=== PATIENT | female | born 1955 | race Caucasian/White ===

== ENCOUNTER → 2016-11-16 | Outpatient (CLI) | payer OTHER, MEDICAID ==
[~2016-11-16] MED LIST: ADVAIR 250/501 EA INH; ALBUTEROL SUL0.25 ML INH; ALBUTEROL0.09 MG/A2 IH; AMOXICILLIN500 M3 PO; ASPIR-TRIN325 MG; ASPIRIN325 M2 PO; DUONEB 3 MG/3 ML3 M1 INH; FERROUS SULFAT325 MG PO; GLUCOPHAGE XR500 MG PO; GLUCOPHAGE1000 MG PO; GUAIFENESIN600 MG PO; HYDROCOD BIT &1 TAB PO; LAMICTAL ODT PA1 OD1 MM; LAMICTAL200 MG PO; LANTUS100 U/ML SC; LASIX40 MG PO; LIPITOR80 MG PO; LISINOPRIL10 MG PO; LISINOPRIL5 MG PO; LOPRESSOR PO; LOPRESSOR25 MG PO; NEXIUM40 MG PO; NORCO 5-325 TA1 EACH PO; NOVOLIN R100 U/ML; PLAVIX75 MG PO; PRILOSEC40 MG PO; PROAIR HFA8.5 GM IH; PROAIR HFA8.5 GM PO; ROBITUSSIN AC 10 MG/ PO; ROZEREM8 MG PO; TRAMADOL HCL50 MG PO; TRAMADOL50 MG PO; TRAZADONE HYDR100 MG PO; TRICOR145 MG PO; VICODIN 500 MG-1 TAB PO; VICTOZA6 MG/ML; VICTOZA6 MG/ML SC; VISTARIL25 M1 PO; VISTARIL25 MG PO; WARFARIN SOD5 MG PO; XARE20MG PO; ZITHROMAX250 MG PO; ZOLOFT100 MG PO
[2016-11-16 13:22] LABS: IRON 44 ug/dL (50-170); IRON SATURATION 14 %; UIBC 267 ug/dL (110-365)
== END | disposition home or self-care (01) ==
LOC: LAB 12:13
PROVIDERS: Internal Medicine
DX: D50.9 Iron deficiency anemia, unspecified (principal)

== ENCOUNTER → 2016-11-17 | Outpatient (CLI) | payer OTHER, MEDICAID | END | disposition home or self-care (01) | LOC: LAB 11:35 | DX: D50.9 Iron deficiency anemia, unspecified (principal) ==

== ENCOUNTER → 2017-11-13 | Outpatient (CLI) | payer OTHER, MEDICAID | END | disposition home or self-care (01) | LOC: RAD 15:48 | DX: M79.672 Pain in left foot (principal); D50.8 Other iron deficiency anemias ==

== ENCOUNTER 2017-12-12 21:23 | Inpatient (IN) | payer OTHER, MEDICAID, MEDICARE ==
[~2017-12-12] VITALS: Ht 157.4 cm; Wt 96.6 kg
--- NOTE | ~2017-12-12 | PR ---
[place], [place] PROGRESS NOTE NAME: BALDO BECK [facility] #: [id number] UNIT #: [id number] ROOM: [facility] DOCTOR: MERLIN WAY MD,TRUDY BIRTHDATE: [birth year] DOS: 12/14/2017 PULMONARY PROGRESS NOTE SUBJECTIVE: The patient has been noted comfortable at this time without any distress. She has been noted with symptoms of cough, which has been noted partially decreased. There were no symptoms of chest pain or hemoptysis. She has used the BiPAP for significant amount of time in the last 24 hours; this morning, using oxygen supplementation nasal cannula, resting comfortably on the bed. Denies symptoms of headache, nausea, vomiting or diarrhea. Denies symptoms of abdominal pain. Denies symptoms of edema or pain of the lower extremities. Remaining systems were reviewed, they were noted all negative. OBJECTIVE: VITAL SIGNS: Normal temperature, respiratory rate 20, heart rate 98, blood pressure 131/74 to 136/70. Her pulse ox saturation on 2 liters nasal cannula was 94% saturation. HEENT: Examination shows head was atraumatic, eyes nonicterus. NECK: Supple. CARDIOVASCULAR: S1, S2 audible. LUNGS: The patient was noted moderate decreased breath sounds with expiratory wheezing, partially decreased from yesterday. ABDOMEN: Soft and obese. EXTREMITIES: The patient was noted without any acute edema. MUSCULOSKELETAL: Without any acute deformities. CENTRAL NERVOUS SYSTEM: The patient with no gross focal neurologic deficit. LABORATORY DATA: Gram stain of yesterday of sputum many white blood cells, moderate epithelial cells, moderate gram-positive cocci in pairs and chains, and few gram-positive cocci in clusters. CBC this morning: WBC count normal, hemoglobin 9.5, hematocrit 32.7, platelet count 233,000. BMP: Glucose 202, BUN 21, creatinine 1.04. Arterial blood gas that was done yesterday, pH was noted as 7.35, pCO2 of 36, pO2 107, 60% oxygen with BiPAP at that time. Currently, the patient has been getting oxygen supplementation nasal cannula. IMPRESSION: 1. The patient has been noted with acute pneumonia. Gram-negative brice was noted at this time, pending identification and sensitivities. 2. The patient with atrial fibrillation with rapid ventricular response. 3. The patient with acute congestive heart failure, systolic and diastolic dysfunction. 4. The patient with acute exacerbation of chronic obstructive pulmonary disease. 5. Chronic obesity. 6. Atrial fibrillation with rapid ventricular response was also noted. 7. Possibility of non-ST segment elevation myocardial infarction. [place], [place] PROGRESS NOTE NAME: BALDO BECK [facility] #: [id number] UNIT #: [id number] ROOM: [facility] DOCTOR: MERLIN WAY MD,TRUDY BIRTHDATE: [birth year] 8. Uncontrolled diabetes mellitus. 9. Suspicion of obstructive sleep apnea disorder. PLAN OF MANAGEMENT: Continuation of oxygen supplementation and bronchodilators. The patient's Cardizem has been switched to oral formulation, intravenous Cardizem is discontinued. Heart rate is noted currently well controlled. Continue Solu-Medrol 40 mg b.i.d. Monitor results of the sputum culture for the patient at this time and then consider changing antibiotics of the patient accordingly. Usual care, other supportive therapy, plan of management, other treatment and care plan. The patient was encouraged to continue the BiPAP intermittent during the day and continuous at nighttime. Arterial blood gas new is ordered to reassess improvement in the ventilatory status without BiPAP. Usual care. Past, family, social history for the patient otherwise was noted yesterday, remains unchanged. Maximize the management of diabetes mellitus. TRUDY BOYER MD CM:MARCELLA [address] MD 12/14/1716 interface
--- NOTE | ~2017-12-12 | EKG ---
[place], [place] ELECTROCARDIOGRAM REPORT NAME: BALDO BECK UNIT #: [id number] ROOM: [facility] DOCTOR: AURA DRAFT REPORT BIRTHDATE: [birth year] [facility] [place] Test Date: 2017-12-14 Test Time: 09:44:57 Pat Name: BALDO BECK Department: Room: [place] [address] Gender: F Carriage Dogger: 17 : 1955 Requested By: FANI ALVA Order Number: [id number] Reading MD: Alex Peterson MD Measurements Intervals [place] Rate: 98 P: RI: QRS: 35 QRSD: 113 T: 163 QT: 405 QTc: 518 Interpretive Statements Atrial fibrillation Borderline intraventricular conduction delay Low voltage, precordial leads Abnrm T, consider ischemia, anterolateral lds Prolonged QT interval Compared to ECG 12/12/2017 22:53:57 Possible ischemia now present Prolonged QT interval now present Electronically Signed On 12-14-2017 19:55:38 PDT by Alex Peterson MD CM:EKGRPT:ELECTROCARDIOGRAM REPORT 3 54 FANI ALVA EPIPHANY DRAFT REPORT FANI ALVA
--- NOTE | ~2017-12-12 | PR ---
[place], [place] PROGRESS NOTE NAME: BALDO BECK UNIT #: [id number] ROOM: [facility] DOCTOR: PASCALE RAMIREZ,CADEN BIRTHDATE: [birth year] DOS: 12/15/2017 REASON FOR VISIT: Atrial fibrillation and CHF. HISTORY OF PRESENT ILLNESS: The patient is feeling better. She is sitting at bedside. Denies any chest pain or palpitations. No orthopnea. No dizziness. No PND. REVIEW OF SYSTEMS: Review of the 10 systems negative except as mentioned above. PHYSICAL EXAMINATION: VITAL SIGNS: Blood pressure 156/73, pulse 104, respiratory rate 20, weight 100 kilos. BMI 40. GENERAL: Alert, comfortable, in no acute distress. HEAD AND NECK: Supple, nondistended. No carotid bruit. CHEST: Symmetrical, nontender. LUNGS: Few scattered rhonchi, but good air entry bilaterally. HEART: Irregularly irregular, grade 1/6 systolic murmur. No palpable thrills. ABDOMEN: Benign, nontender. Bowel sounds normal. EXTREMITIES: Showed no edema. Distal pulses are palpable. SKIN: Warm and dry. No cyanosis, no clubbing. RECTAL: Deferred. GENITOURINARY: Deferred. NEUROLOGIC: The patient is alert, oriented with no focal neurologic deficit. MEDICATIONS AND ALLERGIES: Reviewed. LABORATORY DATA: Reviewed. IMPRESSION: 1. Atrial fibrillation with rapid ventricular rate. 2. Acute on chronic diastolic heart failure. 3. Coronary artery disease. 4. Type 2 non-ST elevation myocardial infarction. 5. Essential hypertension. 6. History of pulmonary emboli and deep venous thrombosis. 7. Pulmonary hypertension. 8. Morbid obesity. RECOMMENDATIONS: 1. Start metoprolol 25 mg twice a day as well as Cardizem 90 mg p.o. q. 8 hours and monitor her heart rate and blood pressure. 2. Wean and discontinue IV Cardizem. 3. Continue her Xarelto for anticoagulation. 4. Discussed with her family member who is at bedside. 5. She would require a Lexiscan stress test either prior to discharge or as an outpatient. [place], [place] PROGRESS NOTE NAME: BALDO BECK UNIT #: [id number] ROOM: [facility] DOCTOR: CADEN ASHRAF MD BIRTHDATE: [birth year] CADEN ASHRAF MD CM:PNTRANS [id number] CADEN ASHRAF MD 12/15/17 2156 interface
--- NOTE | ~2017-12-12 | PR ---
[place], [place] PROGRESS NOTE NAME: BALDO BECK UNIT #: [id number] ROOM: 504 DOCTOR: TRUDY BINGHAM MD BIRTHDATE: [birth year] DOS: 12/16/2017 SUBJECTIVE: The patient was noted comfortable at this time without any acute distress, sitting on the chair this morning. Used the BiPAP last night. Heart rate was noted well controlled for the patient. With current medical management for atrial fibrillation. No symptoms of coughing, sputum expectoration or any chest pain. OBJECTIVE: VITAL SIGNS: For the patient which has been recorded showed the temperature noted as normal. The respiratory rate recorded as 22, heart rate 75 and blood pressure 127/80. HEENT: Noted without any acute abnormalities. Chronic obesity findings were noted. CARDIOVASCULAR: S1, S2 is audible. LUNGS: The patient was noted without any wheeze or crackle at this time. Lungs were noted clear. ABDOMEN: Soft, nontender and obese. EXTREMITIES: Without any acute edema. LABORATORY DATA: The CMP patient that was done this morning, BUN 30, creatinine was normal and glucose 154. Albumin of 2.9. The chest x-ray patient 2-view, which was done this morning was reviewed improving the aeration of the lung with the patient very small pleural fluid in the left. IMPRESSION: 1. Acute pneumonia with gram-negative infection. The patient has Klebsiella responding to treatment very well. Small pleural fluid secondary to acute infection, resolving without any acute intervention. 2. Acute respiratory failure, improved significantly. 3. Atrial fibrillation noted with current controlled range. PLAN OF TREATMENT: No changes in the plan for this patient at this time. Continue current therapy the antibiotics as ordered. Continuation of the bronchodilators and other therapy, plan of management. Titrate oxygen supplementation. Pulse oxygen saturation 90% or greater. The CPAP rather BiPAP at night time. Outpatient workup patient's obstructive sleep apnea disorder as well. [place], [place] PROGRESS NOTE NAME: BALDO BECK UNIT #: [id number] ROOM: 504 DOCTOR: TRUDY BINGHAM MD BIRTHDATE: [birth year] TRUDY BOYER MD CM:PNTRANS [address] MD 12/24/17 0931 interface
--- NOTE | ~2017-12-12 | EKG ---
[place], [place] ELECTROCARDIOGRAM REPORT NAME: BALDO BECK UNIT #: [id number] ROOM: [facility] DOCTOR: AURA DRAFT REPORT BIRTHDATE: [birth year] [facility] Test Date: 2017-12-12 Test Time: 21:29:23 Pat Name: BALDO BECK Department: Room: [facility] Gender: F Medical Reception: SS RESP : 1955 Requested By: ANDRY CISNEROS Order Number: [id number] Reading MD: Alex Peterson MD Measurements Intervals [place] Rate: 161 P: ND: QRS: 58 QRSD: 99 T: 137 QT: 305 QTc: 499 Interpretive Statements Atrial fibrillation with rapid V-rate Probable anterior infarct, old Repolarization abnormality, prob rate related Electronically Signed On 12-13-2017 20:20:43 PDT by Alex Peterson MD CM:EKGRPT:ELECTROCARDIOGRAM REPORT 28 19 ANDRY CISNEROS MD EPIPHANY DRAFT REPORT ANDRY CISNEROS MD
--- NOTE | ~2017-12-12 | EKG ---
[place], [place] ELECTROCARDIOGRAM REPORT NAME: BALDO BECK UNIT #: [id number] ROOM: [facility] DOCTOR: EPIPHANY DRAFT REPORT BIRTHDATE: [birth year] [facility] Test Date: 2017-12-12 Test Time: 21:45:58 Pat Name: BALDO BECK Department: Room: [facility] Gender: F Janitorial Manager: Joann Trevizo : 1955 Requested By: ANDRY CISNEROS Order Number: [id number] Reading MD: Alex Peterson MD Measurements Intervals [place] Rate: 89 P: WI: QRS: 34 QRSD: 111 T: 118 QT: 383 QTc: 467 Interpretive Statements Atrial fibrillation Low voltage, precordial leads Consider anterior infarct Nonspecific T abnormalities, lateral leads Compared to previous tracing this date, rate has slowed by 72 beats/min Electronically Signed On 12-13-2017 20:22:06 PDT by Alex Peterson MD CM:EKGRPT:ELECTROCARDIOGRAM REPORT 44 21 ANDRY CISNEROS MD EPIPHANY DRAFT REPORT ANDRY CISNEROS MD
--- NOTE | ~2017-12-12 | CON ---
[place], [place] REPORT OF CONSULTATION [id number] UN[facility] #: [id number] ROOM: [facility] DOCTOR: MARY HELMS MD BIRTHDATE: [birth year] DOS: 12/13/2017 The patient was seen at her bedside in the intensive care unit today 12/13/2017. CHIEF COMPLAINT: Dyspnea, rapid heartbeat. HISTORY OF PRESENT ILLNESS: The patient is a 62-year-old woman who was seen at her bedside in the intensive care unit today 12/13/2017. She does have a complicated history of heart disease as well as lung disease. She does not follow routinely with a director dermatology. Review of old records show that she did have a myocardial infarction in 1998, at which time she received several stents. Those records are not currently available. She has had pulmonary emboli in the past. Reportedly, a stress test around [address] Kidd showed normal perfusion. She was found to have new onset atrial fibrillation in 03/2015. She was already anticoagulated with warfarin and this was subsequently changed to rivaroxaban. An echocardiogram done at that time was a technically difficult study, but showed normal left ventricular size and wall thickness with global hypokinesis, ejection fraction was between 30 and 35%. No significant valvular disease was seen. The patient reportedly was doing well and following with Dr. Sunni Grace. About 2 weeks ago, she began having episodes of cough and dyspnea. She thought it was a cold. She did have intermittent fevers. She was treated as an outpatient with antibiotics and cough syrup and improved briefly, but then got worse. Associated with this, she did have diarrhea, but no chills or chest pain. Her symptoms worsened and therefore she came to the Emergency Room where she was found to be in atrial fibrillation with a rapid ventricular response. She was also felt to be in respiratory failure. She was felt to have sepsis and pneumonitis. She was given a fluid bolus in the Emergency Room and developed worsening dyspnea. She was therefore transferred to the Intensive Care Unit where she was diuresed and placed on BiPAP. She was also placed on a diltiazem drip and her heart rate came under control. Currently, she feels comfortable on BiPAP. We were asked to assist in her evaluation and care. PAST MEDICAL HISTORY: Includes, 1. Coronary artery disease, status post myocardial infarction in 1998. The patient has stents. Details not currently available. 2. Type 2 diabetes mellitus. 3. Essential hypertension. 4. Hyperlipidemia. 5. Obstructive lung disease with history of remote cigarette use. The patient states she has not smoked in 20 years. 6. History of generalized anxiety disorder. 7. History of deep venous thrombosis and pulmonary embolism. 8. Atrial fibrillation, first documented in 2014, patient is on a direct oral anticoagulant for prophylaxis against stroke and pulmonary emboli. 9. [id number] score equals 5, indicating a high risk for cardioembolic events without anticoagulation. 10. Status post hysterectomy and tonsillectomy. [place], [place] REPORT OF CONSULTATION NAME: BALDO BECK UNIT #: [id number] ROOM: [facility] DOCTOR: MARY HELMS MD BIRTHDATE: [birth year] REVIEW OF SYSTEMS: The patient denies diplopia, loss of vision. She denies focal weakness. She denies lightheadedness or syncope. She denies chills, but she has had fevers and sweats. She has had a cough, which has been minimally productive. She denies nausea or vomiting. She denies hemoptysis or hematemesis. She denies any blood in her stools or urine and denies change in bowel or bladder habits, although she did have some diarrhea prior to admission. She denies any recent weight change. She denies skin rashes. She does note occasional swelling in her ankles. She denies polyuria or polydipsia. The remainder of the review of systems is negative except as noted above. MEDICATIONS PRIOR TO ADMISSION: Albuterol by inhaler q. 4 hours as needed, atorvastatin 80 mg at bedtime, iron sulfate 325 mg daily, furosemide 40 mg p.o. daily as needed for edema, hydroxyzine 25 mg t.i.d. p.r.n., Lamictal 200 mg daily, lisinopril 5 mg b.i.d., metformin 1000 mg b.i.d., omeprazole 40 mg daily, prednisone 20 mg daily for 7 days, rivaroxaban 20 mg daily, sertraline 200 mg daily, trazodone 50 mg at bedtime, Lantus insulin 60 units subcutaneously b.i.d. ALLERGIES: The patient has no known drug allergies. FAMILY HISTORY: The patient's mother had breast cancer and stomach cancer. Her father at age 50 or 60 from a myocardial infarction. SOCIAL HISTORY: The patient was a smoker, but quit over 20 years ago. She does not consume alcohol. She denies illicit drug use. PHYSICAL EXAMINATION: GENERAL: The patient is an overweight white female who is awake, alert and oriented. VITAL SIGNS: Pulse is 80 and irregularly irregular. Blood pressure is 129/65. She is afebrile. She weighs 100 kg and has a body mass index of 40.4. HEENT: Normocephalic and atraumatic. Extraocular muscles are intact. Sclerae are clear. Pupils equal, round and react to light. The oral mucosa is moist. Tongue is midline. NECK: Supple. She has no jugular distention. Carotids are full and I heard no bruits. She had no neck or supraclavicular masses. RESPIRATORY: Respirations are unlabored. Her chest is clear to auscultation and percussion. She has no presacral edema or chest wall tenderness. CARDIOVASCULAR: Her heart has an irregularly irregular rhythm. I heard no murmurs or gallops. PMI is not displaced. She has no precordial heave, lift or thrill. ABDOMEN: Soft and normally active without masses, organomegaly or bruits. EXTREMITIES: Showed trace edema of the ankles. Peripheral pulses are diminished, but palpable in the feet. LABORATORY DATA: I reviewed her electrocardiograms and they do show atrial fibrillation with a rapid ventricular response. She also has poor precordial R-wave progression with a probable old anterior wall myocardial infarction. His hemoglobin is 9.8, white count 9200, platelet count 211,000. Sodium 140, potassium 5.0, chloride 108, CO2 of 22, BUN 17, creatinine 1.14. Hemoglobin A1c [place], [place] REPORT OF CONSULTATION NAME: ABLDO BECK UNIT #: [id number] ROOM: [facility] DOCTOR: MARY HELMS MD BIRTHDATE: [birth year] 8.3. Troponin is mildly elevated at 0.142. IMPRESSION: 1. Admitted to the hospital with acute pneumonitis and respiratory failure, which was exacerbated in the hospital by atrial fibrillation with rapid ventricular response and fluid overloading. 2. Acute on chronic combined systolic and diastolic heart failure. 3. Atrial fibrillation with rapid ventricular response. 4. History of coronary artery disease. 5. History of ischemic cardiomyopathy. 6. History of pulmonary emboli. 7. Long-term anticoagulation with direct oral anticoagulant (rivaroxaban). 8. History of myocardial infarction in 1998, treated with stents. Details not available. 9. Most recent echocardiogram in 2014 showed an ejection fraction between 30 and 35%. PLAN: For now, we will control her heart rate with diltiazem, although we may switch this over to a beta saima later depending on her progress in the hospital, echo results, and a pulmonary evaluation. We will continue to diurese her with IV furosemide. We will reintroduce her MAGALI inhibitor if tolerated by blood pressure. We will follow her for now with her other physicians, but eventually will consider whether she should undergo an ischemia workup, especially since she did have an elevated troponin this admission. I presume that her troponin elevation is due to a type 2 myocardial injury from her respiratory failure and atrial fibrillation, but given her history of recurrent coronary artery disease is certainly a possibility. [facility] and I thank the patient's physicians for asking our advice regarding her care. MARY HELMS MD CM:CONSTR:REPORT OF CONSULTATION 12/13/17 1056 interface
--- NOTE | ~2017-12-12 | CON ---
[place], [place] REPORT OF CONSULTATION NAME: [facility] BECK [facility] [id number] UNIT #: [id number] ROOM: 504 DOCTOR: TRUDY BINGHAM MD BIRTHDATE: [birth year] DOS: 12/13/2017 CONSULTATION REQUESTED BY: Hospitalist services. REASON FOR CONSULTATION: Assess the patient's for current acute respiratory failure. HISTORY OF PRESENT ILLNESS: This is a 62-year-old white female patient with history were noted somewhat limited due to the current use of the BiPAP. She came into the hospital by the ambulance. The patient has been noted with increased symptoms of shortness of breath that has been occurring for the past few days noted significant worsening in the last few hours. The symptoms have been noted increase shortness of breath occurring with minimal exertion. The patient also developed symptoms of wheezing. She has been recently diagnosed with acute bronchitis that has been treated. She denies symptoms of chest pain with that. She has been noted atrial fibrillation with rapid ventricular response. The patient was assessed in the Emergency Room, arterial blood gas was done that has been noted with hypercapnia and respiratory failure. The patient was transferred to the Intensive Care Unit early this morning. She has been started on the BiPAP in the setting of 03/14. The patient denies any symptoms of chest trauma. REVIEW OF SYSTEMS: Review of systems limited though, but reported by the patient as: CONSTITUTIONAL: Fatigue and tiredness and symptoms of fever or chills. EYES: Denies any burning, redness, or tenderness. EARS, NOSE, THROAT SYMPTOMS: Denies sore throat, hoarseness, otalgia, postnasal drainage or epistaxis. CARDIOVASCULAR: Denies anginal pain, edema, or pain of the lower extremities. GASTROINTESTINAL: Denies dysphagia, nausea, vomiting, diarrhea, abdominal pain, hematemesis, melena, or hematochezia. History of chronic moderate obesity. PAST MEDICAL HISTORY: 1. The patient was known with history of chronic atrial fibrillation. 2. Chronic obstructive pulmonary disease. 3. Coronary artery disease. 4. General anxiety disorder. 5. Gastroesophageal reflux. 6. Past coronary artery disease and myocardial infarction. 7. History of pulmonary embolism. 8. Hyperlipidemia. 9. Essential hypertension. 10. Major depressive disorder. 11. Type 2 diabetes mellitus. PAST SURGICAL HISTORY: Noted: 1. Complete hysterectomy. 2. Cardiac catheterization, coronary stents insertion, total of 5 stents placed. 3. History of tonsillectomy. [place], [place] REPORT OF CONSULTATION NAME: BLADO BECK UNIT #: [id number] ROOM: [facility] DOCTOR: TRUDY BINGHAM MD BIRTHDATE: [birth year] SOCIAL HISTORY: The patient is . She lives at home, has 3 children. Denies any history of alcohol use or any illicit drug use. Tobacco use noted since teenager, 1 pack of cigarettes per day, which were discontinued approximately in 1997. FAMILY HISTORY: The patient's mother with complication related to the stomach and breast cancer. Father at the age of 50+ years old for complication of myocardial infarction. HOME MEDICATIONS: Listed on admission: 1. Use of Xarelto 20 mg daily. 2. Zoloft 200 mg daily. 3. Ultram 50 mg t.i.d. p.r.n. for pain. 4. Trazodone 50 mg at bedtime. 5. ProAir HFA inhaler p.r.n. use for shortness of breath. 6. Aspirin 325 mg daily. 7. Lipitor 80 mg daily. 8. Ferrous sulfate 325 mg p.o. daily. 9. Lasix 40 mg daily. 10. Mucinex 600 mg p.o. b.i.d. 11. [place] 5/325 1 p.o. t.i.d. 12. Vistaril 25 mg p.r.n. for anxiety. 13. Lantus insulin 50 units subcutaneous b.i.d. 14. DuoNeb t.i.d. 15. Lamictal 200 mg daily. 16. Victoza 1.8 mL subcutaneous daily. 17. Lisinopril 5 mg daily. 18. Glucophage 1000 mg p.o. b.i.d. 19. Prilosec 40 mg daily. DRUG ALLERGIES: No known drug allergies. PHYSICAL EXAMINATION: GENERAL: A 62-year-old female currently noted to be awake and alert, follows vocal commands. Height of 5 feet 2 inches, weight of 220 pounds, BMI 40. VITAL SIGNS: Temperature noted normal. Respiratory recorded at 31 on admission, heart rate 157, atrial fibrillation and blood pressure 150/120. The blood pressure this morning was 129/65, respiratory rate of 27, heart rate 85 with atrial fibrillation and temperature normal. HEENT: Examination shows head was atraumatic. Mivvvxow-il-memjni obesity. Head was atraumatic. Severe reduced posterior pharyngeal space, high tongue base, crowding of soft tissue structures. NECK: Supple. CARDIOVASCULAR: S1, S2 is audible. LUNGS: Noted with decreased breath sounds bilaterally with expiratory wheezing without any crackles. ABDOMEN: Soft and obese. EXTREMITIES: The patient noted without any acute edema. MUSCULOSKELETAL: Without any acute deformities. [place], [place] REPORT OF CONSULTATION NAME: BALDO BECK UNIT #: [id number] ROOM: 504 DOCTOR: TRUDY BINGHAM MD BIRTHDATE: [birth year] CENTRAL NERVOUS SYSTEM: Limited exam, but there are no focal deficits, but moves all the upper and lower extremities. VISIBLE SKIN: No lesions or rashes. CENTRAL NERVOUS SYSTEM: Intact. LABORATORY DATA: CBC on 12/12/2017, hemoglobin of 10.4, WBC count normal, and platelet count normal. Lactic acid 1.3. The PTT noted normal. D-dimer minimally elevated 1.20. CMP of the patient, glucose 345, BUN and creatinine was normal. AST of 69. CMP of the patient that was done this morning, glucose 380, BUN normal, creatinine was normal. AST 56. CBC of the patient of 12/13/2017. WBC count 15.3, hemoglobin 11.6, hematocrit normal, and platelet count was normal. Arterial blood gas that was done this morning at 2:50 a.m. pH of 7.06, pCO2 of 74, pO2 198 on 100% nonrebreather mask. Repeat arterial blood gas was done this morning, pH of 7.27 pCO2 39, pO2 156 60% oxygen supplementation. Troponin for the patient's first set was noted 0.65 and second set was 0.142. EKG shows atrial fibrillation. The PT, PTT this morning INR 1.2, PTT normal. Review of the radiology data, the chest x-ray that was done yesterday which was reviewed, mild hyperinflation, prominent pulmonary arteries for this patient. There was no evidence of acute pulmonary infiltration, finding of congestive heart failure and others. Chest x-ray repeated again that was done on 12/13/2017. It was noted at that time with a small pleural fluid. The patient increased pulmonary venous congestion marking and patchy area of infiltration. IMPRESSION: 1. The patient who has been currently admitted to the hospital noted with severe acute hypercapnic and hypoxemic respiratory failure, result of acute exacerbation of chronic obstructive pulmonary disease and superimposed congestive heart failure would be considered very likely. 2. Atrial fibrillation with rapid ventricular response with congestive heart failure as well. 3. Past history of known coronary artery disease with normal troponin, rule out non-ST segment elevation myocardial infarction or demand ischemia. 4. The patient with morbid obesity as well with clinical assessment possibility of obstructive sleep apnea disorder. 5. Uncontrolled diabetes mellitus was also noted on this admission. PLAN OF MANAGEMENT: Aggressive control of diabetes mellitus. Continue current dose of Solu-Medrol 40 mg suffice. Continue current antibiotics. The patient has been given one dose of Lasix orally and it will be monitored. Previously the patient was given intravenous Lasix as well. Cardizem was given intravenous to control the heart rate with atrial fibrillation with rapid ventricular response. Continue Xarelto. The patient with long-term anticoagulation. Repeat chest x-ray in case of any worsening of the respiratory status could be done. The chest x-ray could be obtained in the morning. The ventilatory setting has been changed with changing the BiPAP through ventilation. Oxygen supplementation setting would be decreased. The arterial blood gas will be done 2 hours after the change of the BiPAP. Current tidal volume change at the BiPAP has been noted about 500-550 mL with minimum ventilation about 10-11 liters. The patient appeared to be comfortable. A trial for the patient and orientation [place], [place] REPORT OF CONSULTATION NAME: BALDO BECK Josemanuel UNIT #: [id number] ROOM: [facility] DOCTOR: MERLIN WAY MD,TRUDY BIRTHDATE: [birth year] support will be provided intermittently off the BiPAP as tolerated. Bronchodilator will be continued. Diuretic in case of worsening hypoxia. Close monitoring in Intensive Care Unit. Usual care, other supportive therapy, plan of management, other treatment plan of management as well will be continued. All additional treatment changes will be made for the patient based on progression of the illness. Deep venous thrombosis prophylaxis as well. Total time pulmonary critical care evaluation and management for the patient was 36 minutes. TRUDY BOYER MD CM:CONSTR:REPORT OF CONSULTATION 1059 12/24/17 0930 interface
--- NOTE | ~2017-12-12 | PR ---
[place], [place] PROGRESS NOTE NAME: BALDO BECK UNIT #: [id number] ROOM: 504 DOCTOR: CADEN ASHRAF MD BIRTHDATE: [birth year] DOS: 12/16/2017 CARDIOLOGY FOLLOWUP VISIT NOTE REASON FOR VISIT: Atrial fibrillation and congestive heart failure. HISTORY OF PRESENT ILLNESS: The patient is feeling better. No fever and chills. No cough. Breathing is much improved. No chest pain, no palpitations. No PND or orthopnea. REVIEW OF SYSTEMS: Review of the 10 system negative except as mentioned above. RHYTHM STRIPS: The patient in atrial fibrillation with mostly controlled ventricular rate. PHYSICAL EXAMINATION: VITAL SIGNS: Blood pressure 127/80, pulse 76, respiration 23. Weight 100 kilos. GENERAL: Alert, comfortable, in no acute distress. HEAD AND NECK: Pupils round, equal. No jaundice. Tongue was moist and pharynx was clear. CHEST: Symmetrical, nontender. LUNGS: Good air entry bilaterally. HEART: Irregularly irregular, no S3, grade 1/6 systolic murmur. ABDOMEN: Benign, nontender. Bowel sounds normal. EXTREMITIES: Showed trace edema. Distal pulses are palpable. SKIN: Warm and dry. No cyanosis, no clubbing. RECTAL: Deferred. NEUROLOGIC: The patient was alert, oriented. No focal neurologic deficit. IMPRESSION: 1. Atrial fibrillation with controlled ventricular rates, rate controlled on beta blockers and Cardizem. The patient was on Xarelto anticoagulation. 2. Acute on chronic diastolic heart failure, stable. 3. History of pulmonary emboli and deep venous thrombosis. 4. Pulmonary hypertension, stable. 5. Coronary artery disease, stable. RECOMMENDATIONS: 1. Continue current medication. 2. She will get Lexiscan stress tomorrow to rule out underlying ischemia. 3. Possible discharge in the next 24-48 hours. There is no family at bedside at the time of my examination. [place], [place] PROGRESS NOTE NAME: BALDO BECK UNIT #: [id number] ROOM: 504 DOCTOR: CADEN ASHRAF MD BIRTHDATE: [birth year] CADEN ASHRAF MD CM:MARCELLA [id number] CADEN ASHRAF MD 12/17/17 0025 interface
--- NOTE | ~2017-12-12 | PR ---
[place], [place] PROGRESS NOTE NAME: BALDO BECK [facility] #: [id number] UNIT #: [id number] ROOM: [facility] DOCTOR: MERLIN WAY MD,TRUDY BIRTHDATE: [birth year] DOS: 12/15/2017 PULMONARY PROGRESS NOTE SUBJECTIVE: The patient has been noted comfortable at this time, still noted with atrial fibrillation with rapid ventricular response, intermittently treated with intravenous Cardizem. The patient was switched to the oral Cardizem. The intravenous Cardizem resumed because of the recurrence of tachycardia with atrial fibrillation. She denies symptoms of chest pain. Shortness of breath has been improving. Coughing has been noted partially decreased. There were no symptoms of hemoptysis, fever, chills, nausea, vomiting, diarrhea or any abdominal pain. She has used the BiPAP last night. Then, using the oxygen supplementation during the day. Bronchodilators were continued. She was still getting Solu-Medrol 40 mg b.i.d. Remaining systems were reviewed. They were noted all negative. OBJECTIVE: VITAL SIGNS: Shows normal temperature, respiratory rate 22, heart rate 98, blood pressure 164/72-154/68. Pulse oxygen saturation on 2 liters nasal cannula 95% saturation with the BiPAP at 30% oxygen 98% saturation last night were noted. HEENT: Chronic obesity. Head was atraumatic. Eyes: No icterus. NECK: Supple. CARDIOVASCULAR: S1, S2 is audible. LUNGS: The patient was noted with moderate decreased breath sounds with occasional wheezing. There were no crackles. ABDOMEN: Soft, nontender. Bowel sounds present. EXTREMITIES: Without any acute edema. VISIBLE SKIN: No lesions or rashes. MUSCULOSKELETAL: Without any acute deformities. LABORATORY DATA: Culture of the sputum noted heavy growth of Klebsiella pneumoniae. CBC - WBC count 11.7, hemoglobin 9.9, platelet count were normal. BMP this morning; BUN 26, creatinine normal, glucose 248, potassium 3.4. Blood culture from 12/12/2017, no bacterial growth, preliminary. Final culture results pending. IMPRESSION: 1. The patient has been currently noted with resolving acute hypercapnic and hypoxic respiratory failure. 2. Acute pneumonia, Klebsiella pneumoniae, non-aspiration 3. Acute exacerbation of chronic obstructive pulmonary disease. 4. Past history of nicotine use. 5. Mild hyperkalemia and anemia. 6. Atrial fibrillation with recurrent rapid ventricular response. 7. Type 2 diabetes mellitus, still noted partially uncontrolled. PLAN OF MANAGEMENT: Continue intravenous Cardizem. Continue bronchodilators. Antibiotics were changed for the patient to intravenous Rocephin 1 g b.i.d. for the left lower lobe pneumonia and Zosyn will be discontinued. Continue [place], [place] PROGRESS NOTE NAME: BALDO BECK UNIT #: [id number] ROOM: [facility] DOCTOR: TRUDY BINGHAM MD BIRTHDATE: [birth year] Solu-Medrol at 40 mg b.i.d. for today and will be reduced to 40 mg daily tomorrow. Obtain another chest x-ray to reassess the progression of pneumonia, small pleural effusion. Other supportive therapy, plan of management, care plan to be continued. Usual care. Additional treatment changes will be ordered based on the progression of the illness. Continue medical management for diabetes mellitus. Reduction of Solu-Medrol will also help in improving the uncontrolled hyperglycemia. TRUDY BOYER MD CM:PNTRANS [id number] MD 12/15/17 5434 interface
--- NOTE | ~2017-12-12 | EKG ---
[place], [place] ELECTROCARDIOGRAM REPORT NAME: BALDO BECK UNIT #: [id number] ROOM: [facility] DOCTOR: AURA DRAFT REPORT BIRTHDATE: [birth year] [facility] Test Date: 2017-12-12 Test Time: 22:53:57 Pat Name: BALDO BECK Department: Room: [facility] Gender: F Packing Clerk: : 1955 Requested By: ANDRY CISNEROS Order Number: [id number] [place] MD: Alex Peterson MD Measurements Intervals [place] Rate: 105 P: [place]: QRS: 59 QRSD: 107 T: 138 QT: 375 QTc: 496 Interpretive Statements Atrial fibrillation Probable anterior infarct, age indeterminate Lateral leads are also involved No change from earlier ECG this date. Electronically Signed On 12-13-2017 20:22:52 PDT by Alex Peterson MD CM:EKGRPT:ELECTROCARDIOGRAM REPORT 52 21 ANDRY CHAVARRIA DRAFT REPORT ANDRY CISNEROS MD
--- NOTE | ~2017-12-12 | EKG ---
[place], [place] ELECTROCARDIOGRAM REPORT NAME: BALDO BECK UNIT #: [id number] ROOM: [facility] DOCTOR: AURA DRAFT REPORT BIRTHDATE: [birth year] [facility] Test Date: 2017-12-15 Test Time: 08:26:48 Pat Name: BALDO BECK Department: Room: [place] [address] Gender: F Flow Trader: JOSEP : 1955 Requested By: FANI ALVA Order Number: [id number] [place] MD: Oswaldo Jauregui MD Measurements Intervals [place] Rate: 87 P: [place]: QRS: 42 QRSD: 110 T: 158 QT: 409 QTc: 492 Interpretive Statements Atrial fibrillation Low voltage, precordial leads Abnormal T, consider ischemia, lateral leads Compared to ECG 12/14/2017 09:44:57 T-wave abnormality now present Prolonged QT interval no longer present Possible ischemia still present Electronically Signed On 12-16-2017 10:10:45 PDT by Oswaldo Jauregui MD CM:EKGRPT:ELECTROCARDIOGRAM REPORT [id number] FANI CHAVARRIA DRAFT REPORT FANI ALVA
--- NOTE | ~2017-12-12 | PR ---
[place], [place] PROGRESS NOTE [id number] UNIT #: [id number] ROOM: 504 DOCTOR: MERLIN WAY MD,TRUDY BIRTHDATE: [birth year] DOS: 12/17/2017 SUBJECTIVE: She has been noted comfortable at this time. Currently, was planned for getting a cardiac stress testing done today. She has not been noted symptoms of shortness of breath, coughing, sputum expectoration using the BiPAP at nighttime was reported. OBJECTIVE: VITAL SIGNS: Normal temperature, respiratory rate 20, heart rate of 83, blood pressure 119/73. Pulse ox saturation on room air was 97% saturation. HEENT: Shows head was atraumatic. Extraocular movements are intact. No icterus. NECK: Supple. CARDIOVASCULAR: S1, S2 is audible. LUNGS: Clear. ABDOMEN: Soft, nontender. Bowel sounds present. EXTREMITIES: Without any acute edema. Chronic obesity findings were present. IMPRESSION: Atrial fibrillation noted controlled range with acute pneumonia with Klebsiella, was treated with the antibiotics. Fluid was still noted at this time, but small with minimal increase. PLAN OF TREATMENT: Proceed to cardiac stress testing. No intervention. The patient fluid noted small at this time would not be amenable for thoracentesis. Continuation of the therapy, plan of management care and completion of the antibiotics as Rocephin. TRUDY BOYER MD CM:PNTRANS [id number] MD 12/17/17 181 interface
[~2017-12-12 21:23] MED LIST changes: +LANTUS SOL100 UNIT/1 SC; -LANTUS100 U/ML SC
[2017-12-12 21:25] VITALS: BP 150/120
[2017-12-12 21:35] VITALS: BP 140/79
[2017-12-12 21:45] VITALS: BP 159/84
[2017-12-12 22:09] LABS: BASO % 0.3 % (0.0-1.0); EOS # 0.2 10*3/uL (0.0-0.4); EOS % 2.2 % (1.0-4.0); HEMATOCRIT 35.5 % (37.0-47.0); HEMOGLOBIN 10.4 g/dl (12.0-16.0); LYMPH # 0.7 10*3/uL (1.3-4.4); LYMPH % 7.7 % (27.0-41.0); MEAN CELL VOLUME 82.9 fl (81.0-99.0); MEAN CORPUSCULAR HGB 24.3 pg (27.0-31.0); MEAN CORPUSCULAR HGB CONC 29.3 g/dl (33.0-37.0); MEAN PLATELET VOLUME 10.3 fl (9.6-12.3); MONO # 0.2 10*3/uL (0.1-1.0); MONO % 1.9 % (3.0-9.0); NEUT # 7.8 10*3/uL (2.3-7.9); PLATELET COUNT AUTOMATED 255 10*3/uL (130-400); RED BLOOD COUNT 4.28 10*6/uL (4.10-5.10); RED CELL DISTRI WIDTH 17.2 % (0-14.5)
[2017-12-12 22:20] VITALS: BP 116/72
[2017-12-12 22:25] LABS: ACT PARTIAL THROMBO TIME 22.8 SECONDS (20.8-31.5); ALBUMIN 3.2 gm/dl (3.1-4.5); ALKALINE PHOSPHATASE 88 U/L (45-117); BUN 14 mg/dl (7-24); CHLORIDE 109 mmol/L (98-107); CREATININE 0.99 mg/dL (0.55-1.02); LIPASE 168 U/L (73-393); SGOT/AST 69 IU/L (3-35); SGPT/ALT 59 U/L (12-78); SODIUM 140 mmol/L (136-145); TOTAL PROTEIN 6.8 gm/dL (6.4-8.2)
[2017-12-12 22:27] LABS: TROPONIN I < 0.015 ng/ml (<0.045)
[2017-12-12 22:30] VITALS: BP 138/57
[2017-12-13] VITALS (14 sets, daily range): BP systolic 113–168; BP diastolic 49–90
[2017-12-13] MEDS ORDERED: PREDNISONE20 M1 PO (01:06)
[2017-12-13 02:59] LABS: ABG HCO3 20.6 mmol/l (22-26)
[2017-12-13 03:00] LABS: ABG BASE EXCESS -10.9 mmol/L (-2.0-2.0)
[2017-12-13 03:02] LABS: ARTERIAL BLOOD GAS PCO2 74.3 mmHg (35-45); ARTERIAL BLOOD GAS PH 7.067 (7.35-7.45)
[2017-12-13 03:08] LABS: BASO % 0.3 % (0.0-1.0); EOS # 0.1 10*3/uL (0.0-0.4); EOS % 0.5 % (1.0-4.0); HEMATOCRIT 40.5 % (37.0-47.0); HEMOGLOBIN 11.6 g/dl (12.0-16.0); LYMPH # 1.3 10*3/uL (1.3-4.4); LYMPH % 8.8 % (27.0-41.0); MEAN CELL VOLUME 84.6 fl (81.0-99.0); MEAN CORPUSCULAR HGB 24.2 pg (27.0-31.0); MEAN CORPUSCULAR HGB CONC 28.6 g/dl (33.0-37.0); MEAN PLATELET VOLUME 10.4 fl (9.6-12.3); MONO # 0.2 10*3/uL (0.1-1.0); MONO % 1.2 % (3.0-9.0); NEUT # 13.4 10*3/uL (2.3-7.9); NEUT % 87.4 % (47.0-73.0); NUCLEATED RED BLOOD CELL 0.1 10*3/uL (0.0-0.0); NUCLEATED RED BLOOD CELL 0.3 % (0.0-0.0); RED BLOOD COUNT 4.79 10*6/uL (4.10-5.10); RED CELL DISTRI WIDTH 17.3 % (0-14.5); WHITE BLOOD COUNT 15.3 10*3/uL (4.8-10.8)
[2017-12-13 03:18] LABS: ALBUMIN 3.3 gm/dl (3.1-4.5); ALKALINE PHOSPHATASE 98 U/L (45-117); BUN 13 mg/dl (7-24); CHLORIDE 110 mmol/L (98-107); POTASSIUM 4.6 mmol/L (3.5-5.1); SGOT/AST 56 IU/L (3-35); SGPT/ALT 71 U/L (12-78); SODIUM 141 mmol/L (136-145); TOTAL PROTEIN 7.3 gm/dL (6.4-8.2)
[2017-12-13 03:26] LABS: PLATELET COUNT AUTOMATED 338 10*3/uL (130-400)
[2017-12-13 03:37] LABS: BILIRUBIN NEGATIVE (NEGATIVE); BLOOD NEGATIVE (NEGATIVE); CLARITY CLEAR (CLEAR); COLOR YELLOW (YELLOW); GLUCOSE 3+ (NEGATIVE); KETONE NEGATIVE (NEGATIVE); LEUKO ESTERASE NEGATIVE (NEGATIVE); NITRITE NEGATIVE (NEGATIVE); PH 5.5 (5.0-9.0); SPECIFIC GRAVITY 1.025 (1.005-1.030); UROBILINOGEN 0.2 E.U./dl (0.2-1.0)
[2017-12-13 03:53] LABS: RBC 0-2 rbc/hpf (0-2)
[2017-12-13 03:54] LABS: WBC 0-2 wbc/hpf (0-5)
[2017-12-13 05:37] LABS: INTERNATIONAL NORM RATIO 1.2 (2.0-3.5)
[2017-12-13 05:46] LABS: ABG BASE EXCESS -7.9 mmol/L (-2.0-2.0); ABG O2 SATURATION 98.7 % (95-97); ARTERIAL BLOOD GAS PCO2 39.8 mmHg (35-45); ARTERIAL BLOOD GAS PH 7.274 (7.35-7.45)
[2017-12-13 06:01] LABS: ALBUMIN 2.8 gm/dl (3.1-4.5); CREATININE 1.14 mg/dL (0.55-1.02); PHOSPHOROUS 4.7 mg/dL (2.5-4.9); TOTAL PROTEIN 6.2 gm/dL (6.4-8.2)
[2017-12-13 06:07] LABS: FREE T4 1.16 ng/dl (0.76-1.46); THYROID STIM HORMONE (HS) 0.964 uIU/ml (0.358-4.75)
[2017-12-13 06:25] LABS: BASO % 0.2 % (0.0-1.0); EOS % 0.2 % (1.0-4.0); HEMOGLOBIN 9.8 g/dl (12.0-16.0); LYMPH # 0.4 10*3/uL (1.3-4.4); MEAN CELL VOLUME 84.4 fl (81.0-99.0); MEAN CORPUSCULAR HGB 24.3 pg (27.0-31.0); MEAN CORPUSCULAR HGB CONC 28.7 g/dl (33.0-37.0); MEAN PLATELET VOLUME 10.6 fl (9.6-12.3); MONO # 0.3 10*3/uL (0.1-1.0); MONO % 2.8 % (3.0-9.0); NEUT # 8.3 10*3/uL (2.3-7.9); NEUT % 90.7 % (47.0-73.0); NUCLEATED RED BLOOD CELL 0.4 % (0.0-0.0); RED BLOOD COUNT 4.04 10*6/uL (4.10-5.10); RED CELL DISTRI WIDTH 17.2 % (0-14.5); WHITE BLOOD COUNT 9.2 10*3/uL (4.8-10.8)
[2017-12-13 06:28] LABS: HEMATOCRIT 34.1 % (37.0-47.0); PLATELET COUNT AUTOMATED 211 10*3/uL (130-400)
[2017-12-13 07:10] LABS: BASOPHILS 1 % (0-1); OVALOCYTES FEW; PLATELET SUFFICIENCY NORMAL (NORMAL); TOTAL CELLS COUNTED 100 #CELLS; VITAMIN D, 25-HYDROXY 60.2 ng/mL (30-100)
[2017-12-13 09:16] LABS: ABG BASE EXCESS -4.8 mmol/L (-2.0-2.0); ABG HCO3 19.9 mmol/l (22-26); ABG O2 SATURATION 99.3 % (95-97); ARTERIAL BLOOD GAS PCO2 36.5 mmHg (35-45); ARTERIAL BLOOD GAS PH 7.352 (7.35-7.45)
[2017-12-14] VITALS (9 sets, daily range): BP systolic 120–160; BP diastolic 49–74
[2017-12-14 05:59] LABS: BUN 21 mg/dl (7-24); CHLORIDE 109 mmol/L (98-107); CREATININE 1.04 mg/dL (0.55-1.02); SODIUM 142 mmol/L (136-145)
[2017-12-14 06:09] LABS: HEMATOCRIT 32.7 % (37.0-47.0); HEMOGLOBIN 9.5 g/dl (12.0-16.0); MEAN CELL VOLUME 82.8 fl (81.0-99.0); MEAN CORPUSCULAR HGB 24.1 pg (27.0-31.0); MEAN CORPUSCULAR HGB CONC 29.1 g/dl (33.0-37.0); MEAN PLATELET VOLUME 10.5 fl (9.6-12.3); NUCLEATED RED BLOOD CELL 0.2 % (0.0-0.0); PLATELET COUNT AUTOMATED 239 10*3/uL (130-400); RED BLOOD COUNT 3.95 10*6/uL (4.10-5.10); RED CELL DISTRI WIDTH 17.3 % (0-14.5); WHITE BLOOD COUNT 10.4 10*3/uL (4.8-10.8)
[2017-12-14 06:25] LABS: POTASSIUM 3.5 mmol/L (3.5-5.1)
[2017-12-14 07:12] LABS: OVALOCYTES FEW; PLATELET SUFFICIENCY NORMAL (NORMAL); POLYCHROMASIA SLIGHT; TOTAL CELLS COUNTED 100 #CELLS
[2017-12-14 07:44] LABS: ABG BASE EXCESS -1.5 mmol/L (-2.0-2.0); ABG HCO3 22.6 mmol/l (22-26); ABG O2 SATURATION 95.5 % (95-97); ARTERIAL BLOOD GAS PCO2 37.5 mmHg (35-45); ARTERIAL BLOOD GAS PH 7.396 (7.35-7.45); ARTERIAL BLOOD GAS PO2 76.5 mmHg (80-90)
[2017-12-15] VITALS (10 sets, daily range): BP systolic 127–170; BP diastolic 56–73
[2017-12-15 06:06] LABS: HEMATOCRIT 33.9 % (37.0-47.0); HEMOGLOBIN 9.9 g/dl (12.0-16.0); MEAN CELL VOLUME 82.3 fl (81.0-99.0); MEAN CORPUSCULAR HGB CONC 29.2 g/dl (33.0-37.0); MEAN PLATELET VOLUME 10.2 fl (9.6-12.3); PLATELET COUNT AUTOMATED 263 10*3/uL (130-400); RED BLOOD COUNT 4.12 10*6/uL (4.10-5.10); RED CELL DISTRI WIDTH 17.8 % (0-14.5); WHITE BLOOD COUNT 11.7 10*3/uL (4.8-10.8)
[2017-12-15 06:20] LABS: BUN 26 mg/dl (7-24); CHLORIDE 106 mmol/L (98-107); CREATININE 1.02 mg/dL (0.55-1.02); POTASSIUM 3.4 mmol/L (3.5-5.1); SODIUM 143 mmol/L (136-145)
[2017-12-15 06:48] LABS: OVALOCYTES MODERATE; PLATELET SUFFICIENCY NORMAL (NORMAL); POLYCHROMASIA SLIGHT; TOTAL CELLS COUNTED 100 #CELLS
[2017-12-16] VITALS: BP 149/75
[2017-12-16 04:00] VITALS: BP 131/66
[2017-12-16 06:03] LABS: BASO % 0.1 % (0.0-1.0); EOS % 0.1 % (1.0-4.0); HEMATOCRIT 33.7 % (37.0-47.0); LYMPH # 0.6 10*3/uL (1.3-4.4); LYMPH % 4.7 % (27.0-41.0); MEAN CELL VOLUME 81.4 fl (81.0-99.0); MEAN CORPUSCULAR HGB 24.2 pg (27.0-31.0); MEAN CORPUSCULAR HGB CONC 29.7 g/dl (33.0-37.0); MEAN PLATELET VOLUME 9.9 fl (9.6-12.3); MONO # 0.7 10*3/uL (0.1-1.0); MONO % 4.7 % (3.0-9.0); NEUT # 12.2 10*3/uL (2.3-7.9); NEUT % 89.3 % (47.0-73.0); NUCLEATED RED BLOOD CELL 0.1 % (0.0-0.0); PLATELET COUNT AUTOMATED 285 10*3/uL (130-400); RED BLOOD COUNT 4.14 10*6/uL (4.10-5.10); RED CELL DISTRI WIDTH 17.9 % (0-14.5); WHITE BLOOD COUNT 13.7 10*3/uL (4.8-10.8)
[2017-12-16 06:17] LABS: ALBUMIN 2.9 gm/dl (3.1-4.5); ALKALINE PHOSPHATASE 68 U/L (45-117); BUN 30 mg/dl (7-24); CHLORIDE 105 mmol/L (98-107); CREATININE 0.92 mg/dL (0.55-1.02); SGOT/AST 23 IU/L (3-35); SGPT/ALT 45 U/L (12-78); SODIUM 142 mmol/L (136-145); TOTAL PROTEIN 5.8 gm/dL (6.4-8.2)
[2017-12-16 08:00] VITALS: BP 127/80
[2017-12-16 12:00] VITALS: BP 139/67
[2017-12-16 16:00] VITALS: BP 130/74
[2017-12-16 20:00] VITALS: BP 134/74
[2017-12-17] VITALS: BP 117/73
[2017-12-17 06:28] LABS: BASO % 0.1 % (0.0-1.0); EOS # 0.1 10*3/uL (0.0-0.4); EOS % 0.4 % (1.0-4.0); HEMOGLOBIN 10.9 g/dl (12.0-16.0); LYMPH # 1.2 10*3/uL (1.3-4.4); LYMPH % 6.9 % (27.0-41.0); MEAN CELL VOLUME 81.5 fl (81.0-99.0); MEAN CORPUSCULAR HGB CONC 29.5 g/dl (33.0-37.0); MEAN PLATELET VOLUME 9.9 fl (9.6-12.3); MONO # 0.9 10*3/uL (0.1-1.0); MONO % 5.5 % (3.0-9.0); NEUT # 14.5 10*3/uL (2.3-7.9); NEUT % 85.7 % (47.0-73.0); NUCLEATED RED BLOOD CELL 0.2 % (0.0-0.0); PLATELET COUNT AUTOMATED 353 10*3/uL (130-400); RED BLOOD COUNT 4.54 10*6/uL (4.10-5.10); RED CELL DISTRI WIDTH 18.2 % (0-14.5); WHITE BLOOD COUNT 16.9 10*3/uL (4.8-10.8)
[2017-12-17 06:43] LABS: BUN 32 mg/dl (7-24); CHLORIDE 105 mmol/L (98-107); CREATININE 0.91 mg/dL (0.55-1.02); POTASSIUM 3.7 mmol/L (3.5-5.1); SODIUM 144 mmol/L (136-145)
[2017-12-17 08:00] VITALS: BP 122/74
[2017-12-17 12:00] VITALS: BP 138/87
[2017-12-17] MEDS ORDERED: LOPRESSOR25 MG PO (15:44)
[2017-12-17] MEDS ORDERED: DILTIAZEM HCL90 MG PO (15:44)
[2017-12-17 16:00] VITALS: BP 121/59
[2017-12-17] MEDS ORDERED: AMINOPHYLLIN200 MG PO (16:01)
== END 2017-12-17 18:59 | disposition home or self-care (01) | DRG 871 ==
LOC: ED 21:23 → EDHOLD 23:31 → ICCU 23:31 → 4E 12-13 00:12 → ICCU 12-13 03:30 → 5E 12-16 13:42
PROVIDERS: Emergency Medicine Emergency Medical Services; Family Medicine; Internal Medicine; Internal Medicine Cardiovascular Disease; Internal Medicine Critical Care Medicine
PROC: 5A09357 Assistance with Respiratory Ventilation, Less than 24 Consecutive Hours, Continuous Positive Airway Pressure (ICD-10-PCS; principal; 2017-12-13)
PROC: 5A09357 Assistance with Respiratory Ventilation, Less than 24 Consecutive Hours, Continuous Positive Airway Pressure (ICD-10-PCS; 2017-12-15)
PROC: 5A09357 Assistance with Respiratory Ventilation, Less than 24 Consecutive Hours, Continuous Positive Airway Pressure (ICD-10-PCS; 2017-12-16)
PROC: 3E033HZ Introduction of Radioactive Substance into Peripheral Vein, Percutaneous Approach (ICD-10-PCS; 2017-12-17)
PROC: 4A02XM4 Measurement of Cardiac Total Activity, External Approach (ICD-10-PCS; 2017-12-17)
DX: A41.9 Sepsis, unspecified organism (principal); J96.01 Acute respiratory failure with hypoxia; J96.02 Acute respiratory failure with hypercapnia; I50.43 Acute on chronic combined systolic (congestive) and diastolic (congestive) heart failure; J15.6 Pneumonia due to other Gram-negative bacteria; I21.A1 Myocardial infarction type 2; J44.1 Chronic obstructive pulmonary disease with (acute) exacerbation; J44.0 Chronic obstructive pulmonary disease with (acute) lower respiratory infection; E44.0 Moderate protein-calorie malnutrition; I42.9 Cardiomyopathy, unspecified; Z68.41 Body mass index [BMI] 40.0-44.9, adult; M19.90 Unspecified osteoarthritis, unspecified site; I11.0 Hypertensive heart disease with heart failure; F41.1 Generalized anxiety disorder; I48.0 Paroxysmal atrial fibrillation; I27.20 Pulmonary hypertension, unspecified; E87.5 Hyperkalemia; E87.6 Hypokalemia; R80.9 Proteinuria, unspecified; R81 Glycosuria; G47.33 Obstructive sleep apnea (adult) (pediatric); J20.9 Acute bronchitis, unspecified; B96.1 Klebsiella pneumoniae [K. pneumoniae] as the cause of diseases classified elsewhere; K21.9 Gastro-esophageal reflux disease without esophagitis; I25.10 Atherosclerotic heart disease of native coronary artery without angina pectoris; R65.20 Severe sepsis without septic shock; D64.9 Anemia, unspecified; R74.0 Nonspecific elevation of levels of transaminase and lactic acid dehydrogenase [LDH]; I48.2 Chronic atrial fibrillation; E11.65 Type 2 diabetes mellitus with hyperglycemia; E66.01 Morbid (severe) obesity due to excess calories; E78.5 Hyperlipidemia, unspecified; F31.9 Bipolar disorder, unspecified; Z95.5 Presence of coronary angioplasty implant and graft; Z90.710 Acquired absence of both cervix and uterus; Z87.891 Personal history of nicotine dependence; Z80.0 Family history of malignant neoplasm of digestive organs; Z80.3 Family history of malignant neoplasm of breast; Z83.3 Family history of diabetes mellitus; I25.2 Old myocardial infarction; Z86.711 Personal history of pulmonary embolism; Z82.49 Family history of ischemic heart disease and other diseases of the circulatory system; Z79.84 Long term (current) use of oral hypoglycemic drugs; Z79.4 Long term (current) use of insulin; Z79.899 Other long term (current) drug therapy; Z79.82 Long term (current) use of aspirin; Z82.3 Family history of stroke; Z86.718 Personal history of other venous thrombosis and embolism

== ENCOUNTER 2018-01-07 21:16 | Inpatient (IN) | payer OTHER, MEDICAID ==
[~2018-01-07] VITALS: Ht 157.4 cm; Wt 93.6 kg
--- NOTE | ~2018-01-07 | EKG ---
[place], [place] ELECTROCARDIOGRAM REPORT NAME: BALDO BECK UNIT #: [id number] ROOM: 507 DOCTOR: AURA DRAFT REPORT BIRTHDATE: [birth year] [facility] Test Date: 2018-01-07 Test Time: 21:44:11 Pat Name: BALDO BECK Department: Room: 507 Gender: F Marketing Sales Manager: Shivani Newman : 1955 Requested By: SHIREEN VELÁZQUEZ Order Number: [id number] [place] MD: Alex Peterson MD Measurements Intervals [place] Rate: 108 P: [place]: QRS: 10 QRSD: 121 T: 103 QT: 364 QTc: 488 Interpretive Statements Atrial fibrillation Nonspecific intraventricular conduction delay Nonspecific T abnormalities, lateral leads Compared to ECG 12/15/2017 08:26:48 Intraventricular conduction delay is still present T-wave abnormality still present Electronically Signed On 01-08-2018 7:51:30 PDT by Alex Peterson MD CM:EKGRPT:ELECTROCARDIOGRAM REPORT [id number] SHIREEN GASPAR DRAFT REPORT SHIREEN VELÁZQUEZ DO
[2018-01-07 21:16] VITALS: BP 146/62
[~2018-01-07 21:16] MED LIST changes: +AMINOPHYLLIN200 MG PO; +DILTIAZEM HCL90 MG PO; +PREDNISONE20 M1 PO
[2018-01-07 22:02] LABS: BASO % 0.3 % (0.0-1.0); EOS # 0.2 10*3/uL (0.0-0.4); EOS % 2.9 % (1.0-4.0); HEMATOCRIT 35.3 % (37.0-47.0); HEMOGLOBIN 10.6 g/dl (12.0-16.0); LYMPH # 0.4 10*3/uL (1.3-4.4); MEAN CELL VOLUME 81.9 fl (81.0-99.0); MEAN CORPUSCULAR HGB 24.6 pg (27.0-31.0); MEAN PLATELET VOLUME 9.8 fl (9.6-12.3); MONO # 0.3 10*3/uL (0.1-1.0); NEUT # 6.9 10*3/uL (2.3-7.9); NEUT % 87.4 % (47.0-73.0); PLATELET COUNT AUTOMATED 195 10*3/uL (130-400); RED BLOOD COUNT 4.31 10*6/uL (4.10-5.10); RED CELL DISTRI WIDTH 17.9 % (0-14.5); WHITE BLOOD COUNT 7.8 10*3/uL (4.8-10.8)
[2018-01-07 22:09] LABS: INTERNATIONAL NORM RATIO 1.1 (2.0-3.5)
[2018-01-07 22:19] LABS: ALBUMIN 3.5 gm/dl (3.1-4.5); CREATININE 1.57 mg/dL (0.55-1.02); POTASSIUM 5.1 mmol/L (3.5-5.1); TOTAL PROTEIN 6.8 gm/dL (6.4-8.2); TROPONIN I 0.021 ng/ml (<0.045)
[2018-01-07 22:21] VITALS: BP 104/77
[2018-01-07 22:52] VITALS: BP 186/89
[2018-01-07 22:57] LABS: BILIRUBIN NEGATIVE (NEGATIVE); BLOOD TRACE-INTACT (NEGATIVE); CLARITY CLEAR (CLEAR); COLOR YELLOW (YELLOW); GLUCOSE 2+ (NEGATIVE); KETONE NEGATIVE (NEGATIVE); LEUKO ESTERASE NEGATIVE (NEGATIVE); NITRITE NEGATIVE (NEGATIVE); UROBILINOGEN 0.2 E.U./dl (0.2-1.0)
[2018-01-07 23:01] VITALS: BP 146/67
[2018-01-07 23:17] LABS: WBC 0-2 wbc/hpf (0-5)
[2018-01-08 00:15] VITALS: BP 152/56
[2018-01-08] MEDS ORDERED: TRULICITY0.75 MG/0. SC (00:28)
[2018-01-08 04:00] VITALS: BP 155/63
[2018-01-08 05:57] LABS: BASO % 0.5 % (0.0-1.0); EOS # 0.3 10*3/uL (0.0-0.4); EOS % 4.3 % (1.0-4.0); HEMATOCRIT 33.2 % (37.0-47.0); HEMOGLOBIN 10.3 g/dl (12.0-16.0); LYMPH # 0.7 10*3/uL (1.3-4.4); LYMPH % 10.5 % (27.0-41.0); MEAN CELL VOLUME 80.8 fl (81.0-99.0); MEAN CORPUSCULAR HGB 25.1 pg (27.0-31.0); MEAN PLATELET VOLUME 10.1 fl (9.6-12.3); MONO # 0.4 10*3/uL (0.1-1.0); MONO % 6.8 % (3.0-9.0); NEUT # 4.9 10*3/uL (2.3-7.9); NEUT % 77.4 % (47.0-73.0); PLATELET COUNT AUTOMATED 204 10*3/uL (130-400); RED BLOOD COUNT 4.11 10*6/uL (4.10-5.10); RED CELL DISTRI WIDTH 17.6 % (0-14.5); WHITE BLOOD COUNT 6.3 10*3/uL (4.8-10.8)
[2018-01-08 06:17] LABS: BUN 31 mg/dl (7-24); CHLORIDE 110 mmol/L (98-107); PHOSPHOROUS 3.8 mg/dL (2.5-4.9); POTASSIUM 4.8 mmol/L (3.5-5.1); SODIUM 143 mmol/L (136-145)
[2018-01-08 08:00] VITALS: BP 162/78
[2018-01-08 12:00] VITALS: BP 120/41
== END 2018-01-08 13:25 | disposition home or self-care (01) | DRG 683 ==
LOC: ED 21:16 → 5E 23:52
PROVIDERS: Emergency Medicine; Internal Medicine
DX: N17.0 Acute kidney failure with tubular necrosis (principal); E87.2 Acidosis; E44.0 Moderate protein-calorie malnutrition; F33.9 Major depressive disorder, recurrent, unspecified; F41.9 Anxiety disorder, unspecified; I25.10 Atherosclerotic heart disease of native coronary artery without angina pectoris; F41.1 Generalized anxiety disorder; D64.9 Anemia, unspecified; E83.41 Hypermagnesemia; R00.0 Tachycardia, unspecified; I48.2 Chronic atrial fibrillation; E78.5 Hyperlipidemia, unspecified; J44.9 Chronic obstructive pulmonary disease, unspecified; E11.65 Type 2 diabetes mellitus with hyperglycemia; K21.9 Gastro-esophageal reflux disease without esophagitis; I25.2 Old myocardial infarction; Z79.4 Long term (current) use of insulin; Z79.899 Other long term (current) drug therapy; Z86.711 Personal history of pulmonary embolism; Z87.01 Personal history of pneumonia (recurrent); Z90.710 Acquired absence of both cervix and uterus; Z95.5 Presence of coronary angioplasty implant and graft; Z80.3 Family history of malignant neoplasm of breast; Z80.0 Family history of malignant neoplasm of digestive organs; Z82.3 Family history of stroke; Z83.3 Family history of diabetes mellitus; Z82.49 Family history of ischemic heart disease and other diseases of the circulatory system; Z87.891 Personal history of nicotine dependence; Z79.84 Long term (current) use of oral hypoglycemic drugs; Z97.4 Presence of external hearing-aid; Z68.37 Body mass index [BMI] 37.0-37.9, adult

== ENCOUNTER → 2018-10-17 | Outpatient (CLI) | payer OTHER, MEDICAID ==
[~2018-10-17] MED LIST changes: +TRULICITY0.75 MG/0. SC
[2018-10-17 11:31] LABS: BASO # 0.1 10*3/uL (0.0-0.1); BASO % 0.9 % (0.0-1.0); EOS # 0.3 10*3/uL (0.0-0.4); EOS % 4.1 % (1.0-4.0); HEMATOCRIT 37.9 % (37.0-47.0); HEMOGLOBIN 11.3 g/dl (12.0-16.0); LYMPH # 0.6 10*3/uL (1.3-4.4); MEAN CELL VOLUME 87.3 fl (81.0-99.0); MEAN CORPUSCULAR HGB CONC 29.8 g/dl (33.0-37.0); MEAN PLATELET VOLUME 10.6 fl (9.6-12.3); MONO # 0.5 10*3/uL (0.1-1.0); MONO % 6.7 % (3.0-9.0); NEUT # 5.4 10*3/uL (2.3-7.9); NEUT % 78.6 % (47.0-73.0); PLATELET COUNT AUTOMATED 203 10*3/uL (130-400); RED BLOOD COUNT 4.34 10*6/uL (4.10-5.10); RED CELL DISTRI WIDTH 18.5 % (0-14.5); WHITE BLOOD COUNT 6.9 10*3/uL (4.8-10.8)
[2018-10-17 11:41] LABS: ALBUMIN 3.4 gm/dl (3.1-4.5); CREATININE 1.21 mg/dL (0.55-1.02); POTASSIUM 4.4 mmol/L (3.5-5.1); THYROXINE (T4) TOTAL 9.8 ug/dl (4.8-13.9); TOTAL PROTEIN 7.2 gm/dL (6.4-8.2)
== END | disposition home or self-care (01) ==
LOC: LAB 09:49 → MAMMO 10:00
PROVIDERS: Internal Medicine
DX: Z12.31 Encounter for screening mammogram for malignant neoplasm of breast (principal); E03.9 Hypothyroidism, unspecified; E78.00 Pure hypercholesterolemia, unspecified; E11.9 Type 2 diabetes mellitus without complications; I10 Essential (primary) hypertension; D50.9 Iron deficiency anemia, unspecified

== ENCOUNTER 2019-02-12 13:46 | Inpatient (IN) | payer MEDICARE ==
[~2019-02-12] VITALS: Ht 165.1 cm; Wt 100.2 kg
--- NOTE | ~2019-02-12 | CON ---
[place], [place] REPORT OF CONSULTATION NAME: BALDO BECK UNIT #: [id number] ROOM: 415 DOCTOR: BROCK RAMIREZCONNOR BIRTHDATE: [birth year] DOS: 02/13/2019 HISTORY OF PRESENT ILLNESS: A 63-year-old female, very well known to me with a known history of chronic atrial fibrillation, previous myocardial infarction with a stent placement in the past, basically came in with palpitations, headache and chest pressure. Cardiac enzymes have been negative. The patient was in rapid atrial fibrillation, was given Cardizem drip and now she is back into atrial fibrillation with a controlled ventricular response. The patient does have a history of sleep apnea at night and heart rate goes down to 30, but basically the patient was asymptomatic with that. She is already on long-term anticoagulation with Xarelto. PAST MEDICAL HISTORY: Persistent atrial fibrillation, hypertension, coronary artery disease, myocardial infarction, previous stent placement. PAST SURGICAL HISTORY: Hysterectomy, coronary stent, history of hiatal hernia. FAMILY HISTORY: Positive for coronary artery disease. HOME MEDICATIONS: Diltiazem 90 q. 8 hours, atorvastatin, insulin, lisinopril, metoprolol, rivaroxaban. REVIEW OF SYSTEMS: CONSTITUTIONAL: No fever, no chills. HEENT: No visual disturbances. CARDIOVASCULAR: As per HPI. GASTROINTESTINAL: No nausea, no vomiting. GENITOURINARY: No dysuria. NEUROLOGIC: Stable. PHYSICAL EXAMINATION: VITAL SIGNS: Blood pressure today is 110/70. The patient is in atrial fibrillation with a controlled ventricular response. HEENT: Unremarkable. NECK: Supple, no JVD. LUNGS: Diminished breath sounds. HEART: Sounds are irregularly irregular. ABDOMEN: Soft, nontender. NEUROLOGICAL: Stable. LABORATORY DATA: Shows hemoglobin 12.3, hematocrit 39.4. Sodium 141, potassium 3.9, creatinine is 1, GFR is 52. IMPRESSION: The patient with persistent atrial fibrillation with rapid ventricular response, sick sinus syndrome, hypertension, hyperlipidemia, sleep apnea. RECOMMENDATIONS: Continue the anticoagulation and the AV cecilia blocking agents as ordered. We will schedule a stress test as an outpatient as she does have a history of myocardial infarction and stent and we has not had any workup for [place], [place] REPORT OF CONSULTATION NAME: BALDO BECK UNIT #: [id number] ROOM: [facility] DOCTOR: CONNOR GUTIÉRREZ MD BIRTHDATE: [birth year] quite some time. We will review the echocardiogram and I will closely follow up with you. CONNOR GUTIÉRREZ MD CM:CONSTR:REPORT OF CONSULTATION 0738 02/13/19 0807 interface
--- NOTE | ~2019-02-12 | EKG ---
[place], [place] ELECTROCARDIOGRAM REPORT NAME: BALDO BECK UNIT #: [id number] ROOM: 415 DOCTOR: AURA DRAFT REPORT BIRTHDATE: [birth year] [facility] Test Date: 2019-02-12 Test Time: 13:49:13 Pat Name: BALDO BECK Department: Room: [facility] Gender: F Community Education Coordinator: : 1955 Requested By: MARYAM BRANNON Order Number: [id number] [place] MD: Oswaldo Jauregui Measurements Intervals [place] Rate: 168 P: [place]: QRS: 206 QRSD: 94 T: 172 QT: 247 QTc: 413 Interpretive Statements Atrial fibrillation with rapid V-rate Anterior infarct, old Repolarization abnormality, prob rate related Baseline wander in lead(s) V4,V5,V6 Compared to ECG 01/07/2018 21:44:11 Myocardial infarct finding now present Early repolarization now present Intraventricular conduction delay no longer present T-wave abnormality no longer present Electronically Signed On 02-14-2019 7:37:15 PST by Oswaldo Jauregui CM:EKGRPT:ELECTROCARDIOGRAM REPORT [id number] MARYAM CHAVARRIA DRAFT REPORT MARYAM BRANNON MD
--- NOTE | ~2019-02-12 | EKG ---
[place], [place] ELECTROCARDIOGRAM REPORT NAME: BALDO BECK UNIT #: [id number] ROOM: 415 DOCTOR: AURA DRAFT REPORT BIRTHDATE: [birth year] [facility] Test Date: 2019-02-12 Test Time: 19:07:15 Pat Name: BALDO BECK Department: Room: [facility] Gender: F Rental Manager: : 1955 Requested By: MARYAM BRANNON Order Number: [id number] Reading MD: Oswaldo Jauregui Measurements Intervals [place] Rate: 81 P: [place]: QRS: 21 QRSD: 110 T: 140 QT: 370 QTc: 430 Interpretive Statements Atrial fibrillation Multiple ventricular premature complexes Low voltage, precordial leads Borderline repolarization abnormality Baseline wander in lead(s) V6 Compared to ECG 01/07/2018 21:44:11 Ventricular premature complex(es) now present Low QRS voltage now present Intraventricular conduction delay no longer present T-wave abnormality no longer present Electronically Signed On 02-14-2019 7:39:01 PST by Oswaldo Jauregui CM:EKGRPT:ELECTROCARDIOGRAM REPORT [id number] MARYAM CHAVARRIA DRAFT REPORT MARYAM BRANNON MD
--- NOTE | ~2019-02-12 | EKG ---
[place], [place] ELECTROCARDIOGRAM REPORT NAME: BALDO BECK UNIT #: [id number] ROOM: 415 DOCTOR: AURA DRAFT REPORT BIRTHDATE: [birth year] [facility] Test Date: 2019-02-12 Test Time: 16:41:27 Pat Name: BALDO BECK Department: Room: 415 Gender: F Transportation Solutions Manager: : 1955 Requested By: MARYAM BRANNON Order Number: [id number] Reading MD: Oswaldo Jauregui Measurements Intervals [place] Rate: 90 P: [place]: QRS: 42 QRSD: 114 T: 139 QT: 395 QTc: 484 Interpretive Statements Atrial fibrillation Borderline intraventricular conduction delay Low voltage, precordial leads Borderline repolarization abnormality Compared to ECG 01/07/2018 21:44:11 Low QRS voltage now present T-wave abnormality no longer present Electronically Signed On 02-14-2019 7:38:44 PST by Oswaldo Jauregui CM:EKGRPT:ELECTROCARDIOGRAM REPORT [id number] MARYAM CHAVARRIA DRAFT REPORT MARYAM BRANNON MD
[2019-02-12 13:50] VITALS: BP 182/101
[2019-02-12 14:22] LABS: BASO % 0.6 % (0.0-1.0); EOS # 0.1 10*3/uL (0.0-0.4); EOS % 2.4 % (1.0-4.0); HEMATOCRIT 38.6 % (37.0-47.0); HEMOGLOBIN 12.4 g/dl (12.0-16.0); LYMPH # 0.5 10*3/uL (1.3-4.4); MEAN CELL VOLUME 85.2 fl (81.0-99.0); MEAN CORPUSCULAR HGB 27.4 pg (27.0-31.0); MEAN CORPUSCULAR HGB CONC 32.1 g/dl (33.0-37.0); MEAN PLATELET VOLUME 9.6 fl (9.6-12.3); MONO # 0.4 10*3/uL (0.1-1.0); MONO % 7.1 % (3.0-9.0); NEUT # 4.1 10*3/uL (2.3-7.9); NEUT % 79.5 % (47.0-73.0); PLATELET COUNT AUTOMATED 157 10*3/uL (130-400); RED BLOOD COUNT 4.53 10*6/uL (4.10-5.10); RED CELL DISTRI WIDTH 18.3 % (0-14.5); WHITE BLOOD COUNT 5.1 10*3/uL (4.8-10.8)
[2019-02-12 14:33] LABS: ACT PARTIAL THROMBO TIME 23.4 SECONDS (20.0-32.1)
[2019-02-12 14:34] VITALS: BP 140/56
[2019-02-12 14:42] LABS: ALBUMIN 3.5 gm/dl (3.1-4.5); ALKALINE PHOSPHATASE 75 U/L (45-117); BUN 19 mg/dl (7-24); CHLORIDE 106 mmol/L (98-107); CREATININE 1.29 mg/dL (0.55-1.02); SGOT/AST 16 IU/L (3-35); SGPT/ALT 24 U/L (12-78); SODIUM 138 mmol/L (136-145)
[2019-02-12 14:44] LABS: TROPONIN I < 0.015 ng/ml (<0.045)
[2019-02-12 15:06] VITALS: BP 131/113; BP 147/57
[2019-02-12 15:19] LABS: BILIRUBIN NEGATIVE (NEGATIVE); BLOOD NEGATIVE (NEGATIVE); CLARITY CLEAR (CLEAR); COLOR YELLOW (YELLOW); GLUCOSE 3+ (NEGATIVE); KETONE NEGATIVE (NEGATIVE); LEUKO ESTERASE NEGATIVE (NEGATIVE); NITRITE NEGATIVE (NEGATIVE); PH 5.5 (5.0-9.0); SPECIFIC GRAVITY 1.015 (1.005-1.030); UROBILINOGEN 0.2 E.U./dl (0.2-1.0)
[2019-02-12 15:28] LABS: BACTERIA 2+; RBC 0-2 rbc/hpf (0-2)
[2019-02-12 15:33] VITALS: BP 109/55
[2019-02-12 16:00] VITALS: BP 143/59
[2019-02-12] MEDS ORDERED: VIIBRYD20 M1 PO (16:14)
--- NOTE | 2019-02-12 16:28 | NUR ---
[facility] 63, admitted to , under the services of CHRISS Berman DO with a diagnosis of CHEST PAIN. Chief complaint is DENIES AT PRESENT. Patient arrived via bed from ER. Monitor applied. Initial assessment completed. Vital signs taken and recorded. CHRISS BERMAN DO notified of admission to the unit. Orders received. See assessment for past medical history, medications and allergies. Patient and/or family oriented to unit. [facility]. Clothing/patient valuable form completed. CRIS PINEDA
--- NOTE | 2019-02-12 17:40 | NUR ---
DR. GOLDEN NOTIFIED OF CONSULT.
[2019-02-12 20:00] VITALS: BP 155/64
--- NOTE | 2019-02-12 20:13 | NUR ---
1946 UP TO BR. HR ELEVATED WITH ACTIVITY. BACK TO BED. HR BACK IN THE 90'S AFTER RESTING. REMAINS A-FIB. HEP LOCK INTACT. NO DISTRESS NOTED. 02 APPLIED FOR SOB AFTER WALKING TO BR. WILL CONT TO MONITOR.
--- NOTE | 2019-02-12 22:09 | NUR ---
PT RESTING IN BED WATCHING TV. MONITOR REMAINS A-FIB WITH A VR IN THE 80'S AT PRESENT. NO C/O'S VOICED. CONDITION GUARDED.
[2019-02-13] VITALS: BP 140/58
--- NOTE | 2019-02-13 00:14 | NUR ---
HEART RATE 30'S TO 40'S. PATIENT WAS SLEEPING FLAT ON HER BACK, AWAKEND EASILY READJUSTED HER AND ELEVATED HER HOB. NO C/O VOICED JUST THAT SHE'S BEING AWAKEND. CALLED DR. POMPA AND NOTIFIED HIM OF PT. HEART RATE AND ASYMPT. NO NEW ORDERS RECEIVED.
--- NOTE | 2019-02-13 00:44 | NUR ---
24 HR chart check completed.
--- NOTE | 2019-02-13 00:46 | NUR ---
DR. POMPA NOTIFIED OF PATIENT HEART RATED CONTINUING TO DARRELL DOWN INTO THE 30'S. NO ORDERS RECEIVED.
[2019-02-13 06:21] LABS: BASO # 0.1 10*3/uL (0.0-0.1); BASO % 0.8 % (0.0-1.0); EOS # 0.2 10*3/uL (0.0-0.4); EOS % 3.1 % (1.0-4.0); HEMATOCRIT 39.4 % (37.0-47.0); HEMOGLOBIN 12.3 g/dl (12.0-16.0); LYMPH # 0.8 10*3/uL (1.3-4.4); LYMPH % 11.8 % (27.0-41.0); MEAN CELL VOLUME 86.6 fl (81.0-99.0); MEAN CORPUSCULAR HGB CONC 31.2 g/dl (33.0-37.0); MEAN PLATELET VOLUME 9.7 fl (9.6-12.3); MONO # 0.4 10*3/uL (0.1-1.0); MONO % 6.6 % (3.0-9.0); NEUT % 76.5 % (47.0-73.0); PLATELET COUNT AUTOMATED 191 10*3/uL (130-400); RED BLOOD COUNT 4.55 10*6/uL (4.10-5.10); RED CELL DISTRI WIDTH 18.4 % (0-14.5); WHITE BLOOD COUNT 6.5 10*3/uL (4.8-10.8)
[2019-02-13 06:29] LABS: ALBUMIN 3.3 gm/dl (3.1-4.5); CHLORIDE 107 mmol/L (98-107); SODIUM 141 mmol/L (136-145)
[2019-02-13 06:40] LABS: ALKALINE PHOSPHATASE 65 U/L (45-117); BUN 20 mg/dl (7-24); CHOLESTEROL 166 mg/dL (<200); CREATININE 1.06 mg/dL (0.55-1.02); FREE T4 1.24 ng/dl (0.76-1.46); HDL CHOLESTEROL 40 mg/dl (40-60); LDL CHOLESTEROL 85 mg/dL (9-159); SGOT/AST 17 IU/L (3-35); SGPT/ALT 21 U/L (12-78); TOTAL PROTEIN 6.6 gm/dL (6.4-8.2); TRIGLYCERIDES 207 mg/dl (<150); VLDL CHOLESTEROL 41 mg/dL (6-40)
[2019-02-13 06:49] LABS: POTASSIUM 3.9 mmol/L (3.5-5.1)
--- NOTE | 2019-02-13 07:53 | NUR ---
PER DR BROCK PAZ CARDIAC STRESS TEST OP NEXT 699
[2019-02-13 08:00] VITALS: BP 142/86
[2019-02-13 08:54] LABS: VITAMIN D, 25-HYDROXY 30.5 ng/mL (30-100)
--- NOTE | 2019-02-13 09:00 | NUR ---
Shook Splicer in to talk to patient. Patient states lives at home with alone. There are few steps in the home. Physician: aline thornton Pharmacy: [facility] health services: none Patient's level of ADLs: INDEPENDENT Patient has working utilities: all working DME: none Follow-up physician's appointment after d/c: will be made by hospitalist nurse director upon dischage Does patient want to access PORTAL?: no Discharge plan discussed with patient, she states she lives at home alone, is independent in adls and ambualtion, drives she states she will be returning home when medically stable and denies any home needs. MIGUEL MONTALVO
--- NOTE | 2019-02-13 10:07 | NUR ---
PT STATES THAT SHE ONLY TAKES 40U OF LANUTS NOT 60U. MICHELLE SERNA WAS CALLED AT THIS TIME TO UPDATE HER ON THE MEDICATION CHANGES AND SHE WILL UPDATED THE COMPUTER AT THIS TIME. 40 U LANTUS GIVEN AT THIS TIME.
--- NOTE | 2019-02-13 11:57 | NUR ---
MICHELLE AWARE HR 40S-50S. SHE STATED SHE DECREASED THE CARDIZEM.
[2019-02-13 12:00] VITALS: BP 106/40
[2019-02-13] MEDS ORDERED: LOPRESSOR50 M1 PO (12:01)
[2019-02-13] MEDS ORDERED: CARDIZEM60 MG PO (12:03)
[2019-02-13] MEDS ORDERED: DILTIAZEM HCL90 MG PO (12:04)
[2019-02-13] MEDS ORDERED: POTASSIUM CHLO10 ME5 PO (12:06)
[2019-02-13] MEDS ORDERED: FISH OIL CONC1000 M1 PO (12:08)
[2019-02-13] MEDS ORDERED: Synthroid,Levo25 MCG PO (12:12)
--- NOTE | 2019-02-13 12:44 | NUR ---
MED REC UPDATED. MICHELLE SERNA AWARE.
[2019-02-13 16:00] VITALS: BP 157/63
[2019-02-13 20:00] VITALS: BP 134/48
[2019-02-14] VITALS: BP 137/54
--- NOTE | 2019-02-14 01:39 | NUR ---
HEART RATE DECREASED TO 39 FOR JUST A SECOND AND THEN WENT BACK UP INTO 50'S.
--- NOTE | 2019-02-14 04:02 | NUR ---
24 HR chart check completed.
--- NOTE | 2019-02-14 04:21 | NUR ---
HEART RATE JUST WENT TO 35 FOR HALF A SECOND AND THEN RETURNED TO 50'S. EXTREME DARRELL HEART RATE HAS ONLY HAPPEND COUPLE TIMES FOR THIS SHIFT WHICH IS IMPROVED FROM YESTERDAT 11-7 SHIFT.
[2019-02-14 08:00] VITALS: BP 129/56; BP 160/72
--- NOTE | 2019-02-14 09:00 | NUR ---
case management visits with patient, she states she will be returning home when medically stable and denies any home needs
--- NOTE | 2019-02-14 10:30 | NUR ---
CALLED DR BYRD re:MEDICATION ADJUSTMENT FOR LOW HR. CELL PHONE WENT TO DNART LIMITADA. Pippa FUCHS NP NOTIFIED.
[2019-02-14 12:00] VITALS: BP 118/54
[2019-02-14 14:00] VITALS: BP 153/62
--- NOTE | 2019-02-14 14:55 | NUR ---
CALLED Pippa FUCHS NP RE: NELLY DUE. HR 84. SHE STATES GIVE PO NELLY AND ASK DR BYRD WHEN HE COMES IN TO REVIEW THE MEDS.
--- NOTE | 2019-02-14 15:42 | NUR ---
PT SLEEPING AT THIS TIME.
--- NOTE | 2019-02-14 17:28 | NUR ---
PT COMPLAIN OF LOWER BACK PAIN, TYLENOL GIVEN. WILL MONITOR FOR EFFECTIVENESS
[2019-02-14 20:00] VITALS: BP 135/54
--- NOTE | 2019-02-14 21:33 | NUR ---
TYLENOL GIVEN PER ORDER FOR BACK PAIN RATED "5". HELPED PATIENT ADJUST BED TO BE MORE COMFORTABLE.
--- NOTE | 2019-02-14 21:37 | NUR ---
PT. REFUSED TO TAKE LISINOPRIL AND METOPROLOL AND TOOK CARDIZEM TONIGHT.
--- NOTE | 2019-02-14 22:30 | NUR ---
TYLENOL EFEECTIVE FOR BACK PAIN PER PT.
[2019-02-15] VITALS: BP 145/63
--- NOTE | 2019-02-15 00:05 | NUR ---
PT. WAS SOUND A SLEEP. AWAKEND AND ASYMPT. NO C/O. PATIENT WENT BACK TO SLEEP. HOB WAS ELEVATED. PT.DOES HAVE HX OF SLEEP APNEA AND QUIT USING HER CPAP 8 YRS AGO BECAUSE OF FEELING OF CLAUSTROPHOBIC FEELING. ENCOURAGED PATIENT TO PLEASE SEE HER PHYSICIAN TO GET THIS C-PAP BACK WITH A DIFFERENT MASK.
--- NOTE | 2019-02-15 00:06 | NUR ---
PT. HR DOES COME BACK UP TO THE 50'S WITHOUT INTERVENTION.
--- NOTE | 2019-02-15 00:56 | NUR ---
24 HR chart check completed.
[2019-02-15 12:00] VITALS: BP 149/63
--- NOTE | 2019-02-15 13:30 | NUR ---
DR Patricia BYRD CALLED RE: MEDICATION RECCOMENDATION FOR DISCHARGE. ORDERS RECEIVED. DR Mary BYRD NOTIFIED.
[2019-02-15] MEDS ORDERED: LOPRESSOR25 MG PO (14:15)
--- NOTE | 2019-02-15 15:35 | NUR ---
Discharge instructions reviewed with patient/family. Patient receptive and verbalizes understanding. Follow-up care arranged. Written instructions given to patient/family. SUZY GRAMAJO
== END 2019-02-15 16:08 | disposition home or self-care (01) | DRG 308 ==
LOC: ED 13:46 → EDHOLD 15:19 → 4E 15:19
PROVIDERS: Emergency Medicine; Registered Nurse; ADMIT Family Medicine
DX: I48.19 Other persistent atrial fibrillation (principal); N17.0 Acute kidney failure with tubular necrosis; E44.0 Moderate protein-calorie malnutrition; I13.0 Hypertensive heart and chronic kidney disease with heart failure and stage 1 through stage 4 chronic kidney disease, or unspecified chronic kidney disease; E66.01 Morbid (severe) obesity due to excess calories; I25.10 Atherosclerotic heart disease of native coronary artery without angina pectoris; J44.9 Chronic obstructive pulmonary disease, unspecified; E78.5 Hyperlipidemia, unspecified; I49.5 Sick sinus syndrome; F31.9 Bipolar disorder, unspecified; I50.9 Heart failure, unspecified; F41.1 Generalized anxiety disorder; K21.9 Gastro-esophageal reflux disease without esophagitis; E11.65 Type 2 diabetes mellitus with hyperglycemia; E78.2 Mixed hyperlipidemia; N18.3 Chronic kidney disease, stage 3 (moderate); E11.22 Type 2 diabetes mellitus with diabetic chronic kidney disease; G47.33 Obstructive sleep apnea (adult) (pediatric); Z86.711 Personal history of pulmonary embolism; Z90.710 Acquired absence of both cervix and uterus; I25.2 Old myocardial infarction; Z79.01 Long term (current) use of anticoagulants; Z95.5 Presence of coronary angioplasty implant and graft; Z79.899 Other long term (current) drug therapy; Z79.84 Long term (current) use of oral hypoglycemic drugs; Z79.4 Long term (current) use of insulin; Z90.89 Acquired absence of other organs; Z87.891 Personal history of nicotine dependence; Z82.49 Family history of ischemic heart disease and other diseases of the circulatory system; Z83.3 Family history of diabetes mellitus; Z82.3 Family history of stroke; Z68.36 Body mass index [BMI] 36.0-36.9, adult

== ENCOUNTER → 2019-02-18 | Outpatient (CLI) | payer MEDICARE ==
[~2019-02-18] MED LIST changes: +CARDIZEM60 MG PO; +FISH OIL CONC1000 M1 PO; +LOPRESSOR50 M1 PO; +POTASSIUM CHLO10 ME5 PO; +Synthroid,Levo25 MCG PO; +VIIBRYD20 M1 PO
--- NOTE | ~2019-02-18 | ST ---
[place], [place] EXERCISE STRESS TEST REPORT NAME: BALDO BECK UNIT #: [id number] ROOM: DOCTOR: CONNOR GUTIÉRREZ MD BIRTHDATE: [birth year] DOS: 02/18/2019 LEXISCAN PORTION OF THE LEXISCAN CARDIOLITE Baseline cardiogram, atrial fibrillation with PVCs, 0.4 mg of Lexiscan, duration of 10 seconds. No new EKG changes. No chest discomfort. Blood pressure and heart rate response was normal. FINAL IMPRESSION: Indeterminate test secondary to underlying AFib. Blood pressure and heart rate response was normal. Nuclear images will be reported separately. CONNOR GUTIÉRREZ MD CM:STRESS:EXERCISE STRESS TEST REPORT [id number] CONNOR GUTIÉRREZ MD
--- NOTE | 2019-02-18 08:00 | NUR ---
INFORMED CONSENT OBTAINED FOR LEXISCAN NUCLEAR STRESS TEST WITH DR. GUTIÉRREZ. RESTING EKG ATRIAL FIB WITH A RESTING HR OF 85 WITH BP OF 134/60. LUNGS CLEAR WITH SPO2 OF 96% ON ROOM AIR. PT COMPLETED A 1:00 LEXISCAN PROTOCOL RECEIVING LEXISCAN 0.4 MG IV OVER 10 SECONDS. HAD NO CHEST PAIN OR ANY EKG CHANGES. HAD C/O "ODD FEELING" THAT SUBSIDED IN RECOVERY. HAD A PEAK HR OF 104 WITH BP OF 134/58. LAST RECOVERY HR OF 92 WITH BP OF 130/56. AWAITING SCANNING IN STABLE CONDITION.
== END | disposition home or self-care (01) ==
LOC: CARD 00:03
DX: R07.9 Chest pain, unspecified (principal)

== ENCOUNTER → 2019-03-14 | Outpatient (CLI) | payer MEDICARE ==
[~2019-03-14] MED LIST changes: +ADMELOG100 UNIT/1 SC; +ASPIRIN81 M1 PO; +DILTIAZEM HCL90 M1 PO; +Meclizine25 MG PO; +OXYCODONE HCL5 MG PO; +PROAIR HFA8.5 GM INH; +STIOLTO RESPIMAT4 GM INH; +TOPROL XL50 M1 PO; +VITAMIN D350000 UNIT PO
--- NOTE | 2019-03-14 16:03 | NUR ---
PATIENT EVALUATED FOR HOME O2. AT REST ON ROOM AIR SPO2 94%, HR 58, BP 124/62. DURING AMBULATION ON ROOM AIR SPO2 RANGED FROM 89% TO 96%, HR RANGED FROM 58-76. POST AMBULATION ON ROOM AIR SPO2 90% HR 71 BP 128/72.
== END | disposition home or self-care (01) ==
LOC: CP 15:29
DX: R09.02 Hypoxemia (principal)

== ENCOUNTER 2019-03-23 21:14 | Emergency (ER) | payer MEDICARE ==
[~2019-03-23] VITALS: Ht 157.4 cm; Wt 106.6 kg
[~2019-03-23 21:14] MED LIST changes: -ADMELOG100 UNIT/1 SC; -ASPIRIN81 M1 PO; -DILTIAZEM HCL90 M1 PO; -Meclizine25 MG PO; -OXYCODONE HCL5 MG PO; -PROAIR HFA8.5 GM INH; -STIOLTO RESPIMAT4 GM INH; -TOPROL XL50 M1 PO; -VITAMIN D350000 UNIT PO
[2019-03-23 21:37] LABS: BASO % 0.5 % (0.0-1.0); EOS # 0.2 10*3/uL (0.0-0.4); EOS % 2.6 % (1.0-4.0); HEMATOCRIT 32.5 % (37.0-47.0); HEMOGLOBIN 9.5 g/dl (12.0-16.0); LYMPH # 0.8 10*3/uL (1.3-4.4); LYMPH % 9.8 % (27.0-41.0); MEAN CELL VOLUME 92.3 fl (81.0-99.0); MEAN CORPUSCULAR HGB CONC 29.2 g/dl (33.0-37.0); MEAN PLATELET VOLUME 9.4 fl (9.6-12.3); MONO # 0.4 10*3/uL (0.1-1.0); MONO % 5.6 % (3.0-9.0); NEUT # 6.2 10*3/uL (2.3-7.9); NEUT % 80.7 % (47.0-73.0); PLATELET COUNT AUTOMATED 243 10*3/uL (130-400); RED BLOOD COUNT 3.52 10*6/uL (4.10-5.10); WHITE BLOOD COUNT 7.7 10*3/uL (4.8-10.8)
[2019-03-23 21:48] LABS: ACT PARTIAL THROMBO TIME 26.2 SECONDS (20.0-32.1); INTERNATIONAL NORM RATIO 1.1 (2.0-3.5)
[2019-03-23 21:54] LABS: ALBUMIN 2.9 gm/dl (3.1-4.5); CREATININE 1.39 mg/dL (0.55-1.02); POTASSIUM 4.1 mmol/L (3.5-5.1); TOTAL PROTEIN 6.6 gm/dL (6.4-8.2); TROPONIN I 0.016 ng/ml (<0.045)
[2019-03-23 22:35] VITALS: BP 141/53
[2019-03-23] MEDS ORDERED: DILTIAZEM HCL90 M1 PO (22:38)
== END 2019-03-23 22:45 | disposition home or self-care (01) ==
LOC: ED 21:14
PROVIDERS: Emergency Medicine
DX: I48.20 Chronic atrial fibrillation, unspecified (principal); I48.91 Unspecified atrial fibrillation; J44.9 Chronic obstructive pulmonary disease, unspecified; I25.2 Old myocardial infarction; E66.01 Morbid (severe) obesity due to excess calories; I25.10 Atherosclerotic heart disease of native coronary artery without angina pectoris; E78.5 Hyperlipidemia, unspecified; I12.9 Hypertensive chronic kidney disease with stage 1 through stage 4 chronic kidney disease, or unspecified chronic kidney disease; E11.22 Type 2 diabetes mellitus with diabetic chronic kidney disease; N18.3 Chronic kidney disease, stage 3 (moderate); M19.90 Unspecified osteoarthritis, unspecified site; Z79.4 Long term (current) use of insulin; Z79.899 Other long term (current) drug therapy; Z87.891 Personal history of nicotine dependence

== ENCOUNTER 2019-03-31 06:08 | Inpatient (IN) | payer MEDICARE ==
[2019-03-31] VITALS (8 sets, daily range): BP systolic 118–148; BP diastolic 49–67
[~2019-03-31] VITALS: Ht 158.8 cm; Wt 102.3 kg
[~2019-03-31 06:08] MED LIST changes: +DILTIAZEM HCL90 M1 PO
[2019-03-31 06:40] LABS: BASO % 0.5 % (0.0-1.0); EOS # 0.1 10*3/uL (0.0-0.4); EOS % 1.7 % (1.0-4.0); HEMATOCRIT 32.9 % (37.0-47.0); HEMOGLOBIN 9.7 g/dl (12.0-16.0); LYMPH # 0.5 10*3/uL (1.3-4.4); LYMPH % 6.1 % (27.0-41.0); MEAN CELL VOLUME 90.6 fl (81.0-99.0); MEAN CORPUSCULAR HGB 26.7 pg (27.0-31.0); MEAN CORPUSCULAR HGB CONC 29.5 g/dl (33.0-37.0); MEAN PLATELET VOLUME 11.3 fl (9.6-12.3); MONO # 0.5 10*3/uL (0.1-1.0); MONO % 5.5 % (3.0-9.0); NEUT # 7.2 10*3/uL (2.3-7.9); NEUT % 85.5 % (47.0-73.0); PLATELET COUNT AUTOMATED 309 10*3/uL (130-400); RED BLOOD COUNT 3.63 10*6/uL (4.10-5.10); RED CELL DISTRI WIDTH 18.3 % (0-14.5); WHITE BLOOD COUNT 8.4 10*3/uL (4.8-10.8)
[2019-03-31 07:13] LABS: ACT PARTIAL THROMBO TIME 35.3 SECONDS (20.0-32.1); INTERNATIONAL NORM RATIO 1.5 (2.0-3.5)
[2019-03-31 07:20] LABS: ALBUMIN 3.2 gm/dl (3.1-4.5); ALKALINE PHOSPHATASE 106 U/L (45-117); BUN 20 mg/dl (7-24); CHLORIDE 113 mmol/L (98-107); POTASSIUM 4.4 mmol/L (3.5-5.1); SGOT/AST 14 IU/L (3-35); SGPT/ALT 19 U/L (12-78); SODIUM 143 mmol/L (136-145); TOTAL PROTEIN 6.8 gm/dL (6.4-8.2); TROPONIN I < 0.015 ng/ml (<0.045)
--- NOTE | 2019-03-31 07:42 | NUR ---
PT RESTING IN BED STATES "I FEEL BETTER AND HAVE NO CHEST PAIN RIGHT NOW."
--- NOTE | 2019-03-31 09:50 | NUR ---
RODNEY MATTHEWS RN IN PTS ROOM TAKING WOUND PHOTOS.
--- NOTE | 2019-03-31 10:15 | NUR ---
BALDO BECK [id number] Please refer to the physician's history and physical for past medical history, comorbid conditions, and allergies. Diagnosis: CHEST PAIN RULE OUT MYOCARDIAL INFARCTION Atul Score: , WOUND DESCRIPTIONS: Wound Number: 1 Location of the wound: sternum Type of wound: surgical Thickness: Partial Size: 17.0cm x 0.5cm x <0.1cm Tunneling: none Undermining: none Sinus Tract: none Presence of Exudate: none Amount: None Color: Brown, red Odor: None Periwound Skin Appearance: Erythema Wound edges: approximated Pain (associated with wound): none at time of assessment How does patient state this happened? pt stated had surgery at the end of February Wound Number: 2 Location of the wound: right lateral aspect of sternum Type of wound: surgical Thickness: Partial Size: 0.1cm x 1.0cm x <0.1cm Tunneling: none Undermining: none Sinus Tract: none Presence of Exudate: none Amount: None Color: Red Odor: None Periwound Skin Appearance: Erythema Wound edges: approximated Pain (associated with wound): none at time of assessment How does patient state this happened? pt stated had surgery at the end of February Wound Number: 3 Location of the wound: right medial aspect of sternum Type of wound: surgical Thickness: Partial Size: 0.3cm x 1.6cm x <0.1cm Tunneling: none Undermining: none Sinus Tract: none Presence of Exudate: none Amount: None Color: Brown, red Odor: None Periwound Skin Appearance: Erythema Wound edges: approximated Pain (associated with wound): none at time of assessment How does patient state this happened? pt stated had surgery at the end of February Wound Number: 4 Location of the wound: left medial asecpt of sternum Type of wound: surgical Thickness: Partial Size: 0.4cm x 0.8cm x <0.1cm Tunneling: none Undermining: none Sinus Tract: none Presence of Exudate: none Amount: None Color: Brown, red Odor: None Periwound Skin Appearance: Erythema Wound edges: approximated Pain (associated with wound): none at time of assessment How does patient state this happened? pt stated had surgery at the end of February Wound Number: 5 Location of the wound: left lateral aspect of sternum Type of wound: surgical Thickness: Partial Size: 0.3cm x 0.8cm x <0.1cm Tunneling: none Undermining: none Sinus Tract: none Presence of Exudate: none Amount: None Color: Brown, red Odor: None Periwound Skin Appearance: Erythema Wound edges: approximated Pain (associated with wound): none at time of assessment How does patient state this happened? pt stated had surgery at the end of February Wound Number: 6 Location of the wound: right proximal upper thigh Type of wound: surgical Thickness: Partial Size: 5.5cm x 0.3cm x <0.1cm Tunneling: none Undermining: none Sinus Tract: none Presence of Exudate: none Amount: None Color: Brown, red Odor: None Periwound Skin Appearance: Erythema Wound edges: approximated Pain (associated with wound): none at time of assessment How does patient state this happened? pt stated had surgery at the end of February Wound Number: 7 Location of the wound: right distal thigh Type of wound: surgical Thickness: Full Size: 4.7cm x 2.0cm x <0.1cm Tunneling: none Undermining: none Sinus Tract: none Presence of Exudate: none Amount: None Color: Brown, red, yellow Odor: None Periwound Skin Appearance: Erythema Wound edges: approximated Pain (associated with wound): none at time of assessment How does patient state this happened? pt stated had surgery at the end february Surface the patient is resting on: ER Stretcher SKIN PREVENTION RECOMMENDATION: 1. Pressure redistribution support surface as appropriate 2. Elevate heels 3. Remove boots/TEDS every shift and reapply 4. Head of bed 30 degrees as tolerated 5. Assess nutrition and hydration 6. Manage moisture 7. Avoid the use of containment devices while in bed 8. Use absorptive products on surfaces limit layers of linens on bed 9. Turn and reposition every 1-2 hours in bed and every 1 hour in chair as tolerated 10. Weight shifts every 15 minutes while up in chair 11. Offloading with pillows or device to keep heels elevated off bed 12. Monitor skin at least every shift 13. Inspect under medical devices twice a day WOUND TREATMENT RECOMMENDATIONS: Cleanse sternum, right lateral aspect of sternum, right medial aspect of sternum, left medial aspect of sternum, left lateral aspect of sternum, right proximal thigh, right distal thigh with nss and apply dsd daily and prn for soiling. Patient has follow up with on 04/08/[address] García out of [facility] on 04/25/19.
--- NOTE | 2019-03-31 10:40 | NUR ---
A 63, admitted to , under the services of CHRISS Berman DO with a diagnosis of CHEST PAIN RULE OUT TX. Chief complaint is LEFT SIDED CHEST PAIN EARLY THIS MORNING WITH NAUSEA AND DIZZINESS, REDNESS AND FIRMNESS/DISCOLORATION OF SKIN LEFT OF STERNUM AT SITE OF HEALING CABG INCISION. Patient arrived via stretcher from ER. Monitor applied. Initial assessment completed. Vital signs taken and recorded. CHRISS BERMAN DO notified of admission to the unit. Orders received. See assessment for past medical history, medications and allergies. Patient and/or family oriented to unit. [facility] visitation policy reviewed. Clothing/patient valuable form completed. DEVIN MOON
[2019-03-31] MEDS ORDERED: PROAIR HFA8.5 GM INH (11:19)
[2019-03-31] MEDS ORDERED: TOPROL XL50 M1 PO (11:21)
[2019-03-31] MEDS ORDERED: VITAMIN D350000 UNIT PO (11:23)
[2019-03-31] MEDS ORDERED: STIOLTO RESPIMAT4 GM INH (11:23)
[2019-03-31] MEDS ORDERED: ASPIRIN81 M1 PO (11:24)
[2019-03-31] MEDS ORDERED: OXYCODONE HCL5 MG PO (11:24)
[2019-03-31] MEDS ORDERED: ADMELOG100 UNIT/1 SC (11:25)
--- NOTE | 2019-03-31 11:36 | NUR ---
DR. GUTIÉRREZ NOTIFIED OF CONSULT. OBTAINED ORDERS FOR ECHOCARDIOGRAM AND OBTAIN MEDICAL RECORDS FROM [facility] RE: BYPASS GRAFT SURGER 03/07/19.
--- NOTE | 2019-03-31 19:31 | NUR ---
alert oriented x3. laying in bed talking on phone. no acute distress noted.
--- NOTE | 2019-03-31 19:42 | NUR ---
TYLENOL GIVEN PER ORDER FOR LEFT SIDE UNDER RIB/STERNUM FOR OPEN HEART SURGERY DONE ON 03/07 RATED "6-7" PT. WANTED TYELNOL. SEE MAR
--- NOTE | 2019-03-31 20:59 | NUR ---
PT. DROPPED 1 TYLENOL PILL OF FLOOR AND NEEDED ANOTHER ONE. PULLED 1 TYLENOL PILLS AND PT. TOOK THIS FOR PAIN RATED "6" IN LEFT LOWER RIB/MIDSTERNAL.
--- NOTE | 2019-03-31 21:30 | NUR ---
TYLENOL EFFECTIVE FOR PAIN.
--- NOTE | 2019-03-31 22:30 | NUR ---
PATIENT REFUSED BLOOD SUGAR COVERAGE OF 3 UNITS.
[2019-04-01] VITALS: BP 111/55
--- NOTE | 2019-04-01 00:56 | NUR ---
24 HR chart check completed.
--- NOTE | 2019-04-01 02:59 | NUR ---
sleeping No acute distress noted
[2019-04-01 07:08] LABS: BASO # 0.1 10*3/uL (0.0-0.1); BASO % 0.8 % (0.0-1.0); EOS # 0.3 10*3/uL (0.0-0.4); EOS % 3.7 % (1.0-4.0); HEMATOCRIT 35.1 % (37.0-47.0); LYMPH # 0.7 10*3/uL (1.3-4.4); MEAN CELL VOLUME 92.6 fl (81.0-99.0); MEAN CORPUSCULAR HGB 26.4 pg (27.0-31.0); MEAN CORPUSCULAR HGB CONC 28.5 g/dl (33.0-37.0); MEAN PLATELET VOLUME 9.6 fl (9.6-12.3); MONO # 0.5 10*3/uL (0.1-1.0); MONO % 6.7 % (3.0-9.0); NEUT # 5.7 10*3/uL (2.3-7.9); NEUT % 78.1 % (47.0-73.0); PLATELET COUNT AUTOMATED 263 10*3/uL (130-400); RED BLOOD COUNT 3.79 10*6/uL (4.10-5.10); RED CELL DISTRI WIDTH 18.2 % (0-14.5); WHITE BLOOD COUNT 7.3 10*3/uL (4.8-10.8)
--- NOTE | 2019-04-01 07:10 | NUR ---
PT WENT DOWN FOR A CXR AT THIS TIME.
--- NOTE | 2019-04-01 07:10 | NUR ---
IN TO SEE PT. ASSESSMENT COMPLETED. RESPIRATIONS EASY AND REGULAR. PT SOB WITH EXERTION. TACY WITH MOVEMENT IN THE 130S. PT HAS NO COMPLAINTS AT THIS TIME. CALL LIGHT WITHIN REACH. WILL CONTINUE TO MONITOR.
[2019-04-01 07:30] LABS: ALBUMIN 3.4 gm/dl (3.1-4.5); POTASSIUM 3.8 mmol/L (3.5-5.1); TOTAL PROTEIN 7.1 gm/dL (6.4-8.2)
[2019-04-01 07:32] LABS: CREATININE 1.37 mg/dL (0.55-1.02); PHOSPHOROUS 4.3 mg/dL (2.5-4.9)
--- NOTE | 2019-04-01 07:33 | NUR ---
PT BACK ON THE FLOOR AT THIS TIME.
[2019-04-01 08:00] VITALS: BP 110/52
--- NOTE | 2019-04-01 08:37 | NUR ---
PHYSICAL THERAPY Screen received as well as orders for PT will follow thank you Janet Pyle PT
[2019-04-01] MEDS ORDERED: Meclizine25 MG PO (08:51)
--- NOTE | 2019-04-01 08:51 | NUR ---
Nursing screen and Occupational Therapy referral received. Thank you. Yuki Wong OTR/L
--- NOTE | 2019-04-01 09:04 | NUR ---
Provider Network Mgr in to talk to patient. Patient states lives at home with alone. There are few steps in the home. Physician: aline thornton Pharmacy: [facility] beds at the [facility] services: [facility] Patient's level of ADLs: INDEPENDENT Patient has working utilities: all working DME: none Follow-up physician's appointment after d/c: will be made by hospitalist nurse director upon discharge Does patient want to access PORTAL?: no Discharge plan discussed with patient, she lives at home alone, she is independent in adls and ambulation, no home oxygen, she stated she has bypass surgery in February and has had [facility], discussed with her a discharge plan and she stated she would be returning home and would like her home health services to continue, case management will notify home health when she is discharged,. MIGUEL MONTALVO
--- NOTE | 2019-04-01 10:57 | NUR ---
case management contacted [facility], spoke to Dayna, informed her that patient is in this facility and resume order and patient's information was faxed to her. case management will contact [facility] when patient is medically stable for discharge
[2019-04-01 12:00] VITALS: BP 117/54
--- NOTE | 2019-04-01 12:54 | NUR ---
BALDO BECK WAS EVALUATED BY OCCUPATIONAL THERAPY THIS DATE. SHE HAS DECREASED STANDING ENDURANCE AND INCREASED HR WITH MINIMAL ACTIVITIES THAT LIMITS HER ABILITY TO COMPLETE ALL ADL'S AND IADL'S INDEPENDENTLY. CARDIAC MONITORING REVIEWED WITH PATIENT FOR HOME. BALDO HAS A PULSE OX THAT SHE USES AT HOME TO MONITOR HER HR. ENERGY CONSERVATION AND ADAPTIVE LOWER BODY DRESSING REVIEWED WITH BALDO PERTAINING TO HER STERNAL PRECAUTIONS. CONTINUED OCCUPATIONAL THERAPY IN [facility] IS RECOMMENDED TO IMPROVE BALDO'S STANDING ENDURANCE AND ADL/IADL INDEPENDENCE. LIZ DIEHL OTR/L
--- NOTE | 2019-04-01 15:11 | NUR ---
PT STATES "I DID TOO MUCH" RATES PAIN 02/16, OXYIR GIVEN.
[2019-04-01 16:00] VITALS: BP 110/56
--- NOTE | 2019-04-01 16:00 | NUR ---
PT STATES PAIN MED WAS EFFECTIVE RATING PAIN A 4/10 NOW. WILL CONTINUE TO MONTIOR.
[2019-04-01 20:00] VITALS: BP 134/61
--- NOTE | 2019-04-01 22:00 | NUR ---
PT. REFUSED BLOOD SUGAR COVERAGE AND ONLY TOOK LANTUS ORDERED.
--- NOTE | 2019-04-01 23:20 | NUR ---
PT C/O PAIN AT SCAR AREA ON CHEST. RATES PAIN 3 ON PAIN SCALE 0-10. MEDICATED WITH TYLENOL PO PER PRN ORDER, SEE EMAR. CALL LIGHT IN REACH. SEE SHIFT ASSESSMENT.
[2019-04-02] VITALS: BP 94/42
--- NOTE | 2019-04-02 00:10 | NUR ---
RESTING INB ED. MEDICATION EFFECTIVE. CALL LIGHT IN REACH.
[2019-04-02 01:00] VITALS: BP 100/50
--- NOTE | 2019-04-02 04:00 | NUR ---
SLEEPING IN BED. RESP-EASY AND REGULAR. CALL LIGHT IN REACH.
--- NOTE | 2019-04-02 06:20 | NUR ---
SLEEPING IN BED, AWAKENS EASILY. BSG-108, SEE EMAR. TOLERATED ROUTINE MED WITH NO PROBLEM. CALL LIGHT IN REACH.
[2019-04-02 06:50] LABS: ALBUMIN 2.9 gm/dl (3.1-4.5); CREATININE 1.35 mg/dL (0.55-1.02); PHOSPHOROUS 3.9 mg/dL (2.5-4.9); POTASSIUM 3.8 mmol/L (3.5-5.1)
[2019-04-02 12:00] VITALS: BP 124/69
[2019-04-02] MEDS ORDERED: LASIX40 MG PO ×2 (13:20)
--- NOTE | 2019-04-02 13:55 | NUR ---
PT DISCHARGED HOME AT THIS TIME. RATNA AND DESTINEE ROLLE. DISCHARGE INSTRUCTIONS REVIEWED. PT TRANSPORTED OUT VIA WHEELCHAIR.
== END 2019-04-02 13:55 | disposition home health service (06) | DRG 205 ==
LOC: ED 06:08 → 4E 09:38 → EDHOLD 09:38 → 4E 10:01
PROVIDERS: Emergency Medicine Emergency Medical Services; Registered Nurse; ADMIT Family Medicine
DX: M94.0 Chondrocostal junction syndrome [Tietze] (principal); I50.33 Acute on chronic diastolic (congestive) heart failure; I13.0 Hypertensive heart and chronic kidney disease with heart failure and stage 1 through stage 4 chronic kidney disease, or unspecified chronic kidney disease; I48.21 Permanent atrial fibrillation; D68.69 Other thrombophilia; E44.0 Moderate protein-calorie malnutrition; Z68.41 Body mass index [BMI] 40.0-44.9, adult; I25.10 Atherosclerotic heart disease of native coronary artery without angina pectoris; E11.65 Type 2 diabetes mellitus with hyperglycemia; E11.22 Type 2 diabetes mellitus with diabetic chronic kidney disease; F41.1 Generalized anxiety disorder; K21.9 Gastro-esophageal reflux disease without esophagitis; F31.9 Bipolar disorder, unspecified; N18.3 Chronic kidney disease, stage 3 (moderate); G47.33 Obstructive sleep apnea (adult) (pediatric); E66.01 Morbid (severe) obesity due to excess calories; J44.9 Chronic obstructive pulmonary disease, unspecified; E78.5 Hyperlipidemia, unspecified; Z95.5 Presence of coronary angioplasty implant and graft; Z79.4 Long term (current) use of insulin; Z95.1 Presence of aortocoronary bypass graft; I25.2 Old myocardial infarction; Z90.710 Acquired absence of both cervix and uterus; Z87.891 Personal history of nicotine dependence; Z80.3 Family history of malignant neoplasm of breast; Z80.0 Family history of malignant neoplasm of digestive organs; Z82.49 Family history of ischemic heart disease and other diseases of the circulatory system; Z79.899 Other long term (current) drug therapy; Z79.82 Long term (current) use of aspirin

== ENCOUNTER → 2019-05-14 | Outpatient (CLI) | payer MEDICARE ==
[~2019-05-14] MED LIST changes: +ADMELOG100 UNIT/1 SC; +ASPIRIN81 M1 PO; +Meclizine25 MG PO; +OXYCODONE HCL5 MG PO; +PROAIR HFA8.5 GM INH; +STIOLTO RESPIMAT4 GM INH; +TOPROL XL50 M1 PO; +VITAMIN D350000 UNIT PO
== END | disposition home or self-care (01) ==
LOC: RAD 15:16
DX: J43.9 Emphysema, unspecified (principal); I70.0 Atherosclerosis of aorta; J98.11 Atelectasis; M47.894 Other spondylosis, thoracic region; J90 Pleural effusion, not elsewhere classified

== ENCOUNTER → 2019-05-23 | Day surgery (SDC) | payer MEDICARE ==
[2019-05-23 09:05] VITALS: BP 148/72
[2019-05-23 10:41] VITALS: BP 130/71
[2019-05-23 11:13] LABS: BODY FLUID WBC 225 /uL
[2019-05-23 11:55] LABS: BF LYMPHOCYTES 28 %; BF MACROPHAGES 54 %; BF MESOTHELIALS 3 %; BF MONOCYTES 3 %; BF NEUTROPHILS 11 %
== END | disposition home or self-care (01) ==
PROVIDERS: Internal Medicine Critical Care Medicine
DX: J90 Pleural effusion, not elsewhere classified (principal); J44.9 Chronic obstructive pulmonary disease, unspecified; J96.11 Chronic respiratory failure with hypoxia; J94.8 Other specified pleural conditions; I48.91 Unspecified atrial fibrillation; I50.9 Heart failure, unspecified; I11.0 Hypertensive heart disease with heart failure; E11.9 Type 2 diabetes mellitus without complications; F32.9 Major depressive disorder, single episode, unspecified; I10 Essential (primary) hypertension; I25.2 Old myocardial infarction; Z87.891 Personal history of nicotine dependence; Z83.3 Family history of diabetes mellitus; Z82.49 Family history of ischemic heart disease and other diseases of the circulatory system; Z82.3 Family history of stroke

== ENCOUNTER → 2019-06-13 | Day surgery (SDC) | payer MEDICARE ==
[2019-06-13 08:38] VITALS: BP 121/61
[2019-06-13 10:56] LABS: BODY FLUID WBC 158 /uL
[2019-06-13 11:39] LABS: BF LYMPHOCYTES 43 %; BF MACROPHAGES 33 %; BF MESOTHELIALS 4 %; BF NEUTROPHILS 20 %
[2019-06-14 14:05] LABS: ACID FAST SPEC PROCESSING Direct Inoculation (.)
== END | disposition home or self-care (01) ==
PROVIDERS: Internal Medicine Critical Care Medicine
DX: J90 Pleural effusion, not elsewhere classified (principal)

== ENCOUNTER 2019-09-16 15:53 | Inpatient (IN) | payer MEDICARE ==
[~2019-09-16] VITALS: Ht 157.4 cm; Wt 105.8 kg
[2019-09-16 16:01] VITALS: BP 134/58
[2019-09-16 16:23] LABS: BASO # 0.1 10*3/uL (0.0-0.1); BASO % 0.6 % (0.0-1.0); EOS # 0.3 10*3/uL (0.0-0.4); EOS % 3.3 % (1.0-4.0); HEMATOCRIT 34.4 % (37.0-47.0); LYMPH # 0.4 10*3/uL (1.3-4.4); LYMPH % 4.8 % (27.0-41.0); MEAN CELL VOLUME 80.9 fl (81.0-99.0); MEAN CORPUSCULAR HGB 23.8 pg (27.0-31.0); MEAN CORPUSCULAR HGB CONC 29.4 g/dl (33.0-37.0); MEAN PLATELET VOLUME 9.2 fl (9.6-12.3); MONO # 0.4 10*3/uL (0.1-1.0); MONO % 4.7 % (3.0-9.0); NEUT # 7.8 10*3/uL (2.3-7.9); NEUT % 86.2 % (47.0-73.0); PLATELET COUNT AUTOMATED 218 10*3/uL (130-400); RED BLOOD COUNT 4.25 10*6/uL (4.10-5.10); RED CELL DISTRI WIDTH 17.9 % (0-14.5)
[2019-09-16 16:27] VITALS: BP 130/83
[2019-09-16 16:34] LABS: ACT PARTIAL THROMBO TIME 26.6 SECONDS (20.0-32.1); INTERNATIONAL NORM RATIO 1.2 (2.0-3.5)
[2019-09-16 16:39] LABS: ALBUMIN 3.1 gm/dl (3.1-4.5); CREATININE 1.42 mg/dL (0.55-1.02); POTASSIUM 3.6 mmol/L (3.5-5.1); TOTAL PROTEIN 6.8 gm/dL (6.4-8.2); TROPONIN I 0.018 ng/ml (<0.045)
[2019-09-16 17:21] VITALS: BP 153/69
[2019-09-16 17:55] VITALS: BP 132/63
[2019-09-16] MEDS ORDERED: DALI500T PO (18:15)
[2019-09-16] MEDS ORDERED: DALIRESP500 MC1 PO (18:18)
[2019-09-16 20:00] VITALS: BP 127/60
[2019-09-17] VITALS: BP 126/69
[2019-09-17 06:09] LABS: BASO # 0.1 10*3/uL (0.0-0.1); BASO % 0.7 % (0.0-1.0); EOS # 0.5 10*3/uL (0.0-0.4); EOS % 6.4 % (1.0-4.0); HEMATOCRIT 37.5 % (37.0-47.0); LYMPH # 0.7 10*3/uL (1.3-4.4); LYMPH % 8.7 % (27.0-41.0); MEAN CELL VOLUME 82.4 fl (81.0-99.0); MEAN CORPUSCULAR HGB 23.1 pg (27.0-31.0); MEAN PLATELET VOLUME 9.6 fl (9.6-12.3); MONO # 0.6 10*3/uL (0.1-1.0); MONO % 7.4 % (3.0-9.0); NEUT # 6.2 10*3/uL (2.3-7.9); NEUT % 76.2 % (47.0-73.0); PLATELET COUNT AUTOMATED 239 10*3/uL (130-400); RED BLOOD COUNT 4.55 10*6/uL (4.10-5.10); WHITE BLOOD COUNT 8.1 10*3/uL (4.8-10.8)
[2019-09-17 06:40] LABS: CREATININE 1.47 mg/dL (0.55-1.02); POTASSIUM 3.7 mmol/L (3.5-5.1)
[2019-09-17 08:00] VITALS: BP 136/69
[2019-09-17 12:00] VITALS: BP 121/68
[2019-09-17 16:00] VITALS: BP 129/67
[2019-09-17 16:04] LABS: ARTERIAL BLOOD GAS PH 7.388 (7.35-7.45)
[2019-09-17 18:00] VITALS: BP 129/67
[2019-09-17 20:00] VITALS: BP 111/56
[2019-09-18] VITALS: BP 122/58
[2019-09-18 06:29] LABS: BASO # 0.1 10*3/uL (0.0-0.1); BASO % 0.6 % (0.0-1.0); EOS # 0.5 10*3/uL (0.0-0.4); EOS % 6.8 % (1.0-4.0); HEMATOCRIT 36.3 % (37.0-47.0); LYMPH # 0.7 10*3/uL (1.3-4.4); LYMPH % 9.3 % (27.0-41.0); MEAN CELL VOLUME 82.9 fl (81.0-99.0); MEAN CORPUSCULAR HGB 23.5 pg (27.0-31.0); MEAN CORPUSCULAR HGB CONC 28.4 g/dl (33.0-37.0); MEAN PLATELET VOLUME 9.8 fl (9.6-12.3); MONO # 0.6 10*3/uL (0.1-1.0); MONO % 7.5 % (3.0-9.0); NEUT % 75.4 % (47.0-73.0); PLATELET COUNT AUTOMATED 228 10*3/uL (130-400); RED BLOOD COUNT 4.38 10*6/uL (4.10-5.10); RED CELL DISTRI WIDTH 17.9 % (0-14.5)
[2019-09-18 07:02] LABS: CREATININE 1.46 mg/dL (0.55-1.02); POTASSIUM 3.7 mmol/L (3.5-5.1)
[2019-09-18 08:00] VITALS: BP 144/72
[2019-09-18 12:00] VITALS: BP 130/53
[2019-09-18 16:00] VITALS: BP 127/53
[2019-09-18 20:00] VITALS: BP 117/57
[2019-09-19] VITALS: BP 119/51
[2019-09-19 08:00] VITALS: BP 142/54
[2019-09-19 12:00] VITALS: BP 149/70
[2019-09-19 16:00] VITALS: BP 132/65
[2019-09-19 20:00] VITALS: BP 151/80
[2019-09-20] VITALS: BP 142/59
[2019-09-20 07:41] LABS: POTASSIUM 3.2 mmol/L (3.5-5.1)
[2019-09-20 07:47] LABS: ALBUMIN 3.1 gm/dl (3.1-4.5); CREATININE 1.42 mg/dL (0.55-1.02); TOTAL PROTEIN 6.5 gm/dL (6.4-8.2)
[2019-09-20 08:00] VITALS: BP 138/60
[2019-09-20 12:00] VITALS: BP 118/46
[2019-09-20 16:00] VITALS: BP 121/69
[2019-09-20 20:00] VITALS: BP 135/65
[2019-09-21] VITALS: BP 112/82
[2019-09-21 08:00] VITALS: BP 133/61
[2019-09-21 10:09] LABS: CREATININE 1.45 mg/dL (0.55-1.02)
[2019-09-21 12:00] VITALS: BP 116/82
[2019-09-21 16:00] VITALS: BP 126/76
[2019-09-21 20:00] VITALS: BP 139/82
[2019-09-22] VITALS: BP 116/56
[2019-09-22 05:47] LABS: BASO % 0.5 % (0.0-1.0); EOS # 0.6 10*3/uL (0.0-0.4); EOS % 7.6 % (1.0-4.0); LYMPH # 0.7 10*3/uL (1.3-4.4); LYMPH % 8.5 % (27.0-41.0); MEAN CELL VOLUME 81.1 fl (81.0-99.0); MEAN CORPUSCULAR HGB 23.4 pg (27.0-31.0); MEAN CORPUSCULAR HGB CONC 28.8 g/dl (33.0-37.0); MEAN PLATELET VOLUME 9.7 fl (9.6-12.3); MONO # 0.6 10*3/uL (0.1-1.0); MONO % 7.7 % (3.0-9.0); NEUT # 5.7 10*3/uL (2.3-7.9); NEUT % 74.3 % (47.0-73.0); PLATELET COUNT AUTOMATED 216 10*3/uL (130-400); RED BLOOD COUNT 4.19 10*6/uL (4.10-5.10); RED CELL DISTRI WIDTH 17.7 % (0-14.5); WHITE BLOOD COUNT 7.6 10*3/uL (4.8-10.8)
[2019-09-22 05:54] LABS: ALBUMIN 3.2 gm/dl (3.1-4.5); CREATININE 1.39 mg/dL (0.55-1.02); POTASSIUM 3.6 mmol/L (3.5-5.1)
[2019-09-22 08:00] VITALS: BP 152/78
[2019-09-22 12:00] VITALS: BP 132/58
[2019-09-22 16:00] VITALS: BP 128/63
[2019-09-22 20:00] VITALS: BP 146/71
[2019-09-23] VITALS: BP 142/71
[2019-09-23 08:00] VITALS: BP 134/60
[2019-09-23 08:17] LABS: ALBUMIN 3.1 gm/dl (3.1-4.5); CREATININE 1.45 mg/dL (0.55-1.02); POTASSIUM 3.7 mmol/L (3.5-5.1); TOTAL PROTEIN 6.7 gm/dL (6.4-8.2)
[2019-09-23 12:00] VITALS: BP 146/78
[2019-09-23 16:00] VITALS: BP 124/55
[2019-09-23 20:00] VITALS: BP 140/62
[2019-09-24] VITALS: BP 132/67
[2019-09-24 06:50] LABS: ALBUMIN 3.2 gm/dl (3.1-4.5); CREATININE 1.46 mg/dL (0.55-1.02); POTASSIUM 3.3 mmol/L (3.5-5.1)
[2019-09-24 06:52] LABS: TOTAL PROTEIN 6.8 gm/dL (6.4-8.2)
[2019-09-24 08:00] VITALS: BP 142/62
[2019-09-24 12:00] VITALS: BP 130/52
[2019-09-24 16:00] VITALS: BP 119/56
[2019-09-24 20:00] VITALS: BP 132/63
[2019-09-25] VITALS: BP 121/50
[2019-09-25 06:25] LABS: ALBUMIN 3.2 gm/dl (3.1-4.5); CREATININE 1.63 mg/dL (0.55-1.02); POTASSIUM 3.4 mmol/L (3.5-5.1); TOTAL PROTEIN 7.1 gm/dL (6.4-8.2)
[2019-09-25 08:00] VITALS: BP 140/62
[2019-09-25 12:00] VITALS: BP 136/80
[2019-09-25] MEDS ORDERED: Metolazone5 MG PO (12:21)
[2019-09-25] MEDS ORDERED: KLOR-CON M2020 ME1 PO (12:21)
[2019-09-25] MEDS ORDERED: LASIX80 MG PO (12:21)
[2019-09-25] MEDS ORDERED: XARE15TA PO (12:21)
[2019-09-25 16:00] VITALS: BP 134/53
[2019-09-25 20:00] VITALS: BP 140/57
[2019-09-26] VITALS: BP 133/51
[2019-09-26 07:06] LABS: BASO % 0.5 % (0.0-1.0); EOS # 0.6 10*3/uL (0.0-0.4); EOS % 7.1 % (1.0-4.0); HEMATOCRIT 35.1 % (37.0-47.0); LYMPH # 0.7 10*3/uL (1.3-4.4); LYMPH % 8.6 % (27.0-41.0); MEAN CELL VOLUME 81.3 fl (81.0-99.0); MEAN CORPUSCULAR HGB 23.1 pg (27.0-31.0); MEAN CORPUSCULAR HGB CONC 28.5 g/dl (33.0-37.0); MEAN PLATELET VOLUME 10.4 fl (9.6-12.3); MONO # 0.6 10*3/uL (0.1-1.0); MONO % 7.7 % (3.0-9.0); NEUT % 75.7 % (47.0-73.0); PLATELET COUNT AUTOMATED 198 10*3/uL (130-400); RED BLOOD COUNT 4.32 10*6/uL (4.10-5.10); RED CELL DISTRI WIDTH 17.3 % (0-14.5); WHITE BLOOD COUNT 7.9 10*3/uL (4.8-10.8)
[2019-09-26 07:31] LABS: CREATININE 1.61 mg/dL (0.55-1.02); POTASSIUM 3.1 mmol/L (3.5-5.1)
[2019-09-26 12:00] VITALS: BP 132/68
[2019-09-26] MEDS ORDERED: ALPRAZOLAM0.25 M2 PO (14:46)
== END 2019-09-26 19:02 | disposition other institution (70) | DRG 291 ==
LOC: ED 15:53 → 5E 17:25 → EDHOLD 17:25 → 5E 17:31
PROVIDERS: Family Medicine; Internal Medicine; Internal Medicine Cardiovascular Disease; Internal Medicine Critical Care Medicine; Registered Nurse; ADMIT Internal Medicine
PROC: 5A09357 Assistance with Respiratory Ventilation, Less than 24 Consecutive Hours, Continuous Positive Airway Pressure (ICD-10-PCS; principal; 2019-09-18)
PROC: 5A09357 Assistance with Respiratory Ventilation, Less than 24 Consecutive Hours, Continuous Positive Airway Pressure (ICD-10-PCS; 2019-09-23)
DX: I13.0 Hypertensive heart and chronic kidney disease with heart failure and stage 1 through stage 4 chronic kidney disease, or unspecified chronic kidney disease (principal); I50.43 Acute on chronic combined systolic (congestive) and diastolic (congestive) heart failure; E44.0 Moderate protein-calorie malnutrition; I25.810 Atherosclerosis of coronary artery bypass graft(s) without angina pectoris; N17.9 Acute kidney failure, unspecified; J96.11 Chronic respiratory failure with hypoxia; J96.12 Chronic respiratory failure with hypercapnia; I48.21 Permanent atrial fibrillation; Z68.41 Body mass index [BMI] 40.0-44.9, adult; D50.9 Iron deficiency anemia, unspecified; E87.8 Other disorders of electrolyte and fluid balance, not elsewhere classified; E83.41 Hypermagnesemia; E11.65 Type 2 diabetes mellitus with hyperglycemia; E66.01 Morbid (severe) obesity due to excess calories; E11.22 Type 2 diabetes mellitus with diabetic chronic kidney disease; E78.5 Hyperlipidemia, unspecified; F41.1 Generalized anxiety disorder; J44.9 Chronic obstructive pulmonary disease, unspecified; I25.5 Ischemic cardiomyopathy; E87.5 Hyperkalemia; K21.9 Gastro-esophageal reflux disease without esophagitis; E03.9 Hypothyroidism, unspecified; G47.33 Obstructive sleep apnea (adult) (pediatric); F31.9 Bipolar disorder, unspecified; E78.00 Pure hypercholesterolemia, unspecified; Z20.828 Contact with and (suspected) exposure to other viral communicable diseases; Z90.710 Acquired absence of both cervix and uterus; Z87.891 Personal history of nicotine dependence; I25.2 Old myocardial infarction; Z82.49 Family history of ischemic heart disease and other diseases of the circulatory system; Z80.3 Family history of malignant neoplasm of breast; Z80.0 Family history of malignant neoplasm of digestive organs; Z95.5 Presence of coronary angioplasty implant and graft; Z95.1 Presence of aortocoronary bypass graft; Z79.01 Long term (current) use of anticoagulants; Z79.4 Long term (current) use of insulin; Z79.899 Other long term (current) drug therapy; Z79.82 Long term (current) use of aspirin

== ENCOUNTER 2019-10-04 18:37 | Emergency (ER) | payer MEDICARE ==
[~2019-10-04] VITALS: Wt 107.0 kg
[~2019-10-04 18:37] MED LIST changes: +ALPRAZOLAM0.25 M2 PO; +DALI500T PO; +DALIRESP500 MC1 PO; +KLOR-CON M2020 ME1 PO; +LASIX80 MG PO; +Metolazone5 MG PO; +XARE15TA PO
[2019-10-04 19:26] LABS: BASO # 0.1 10*3/uL (0.0-0.1); BASO % 0.7 % (0.0-1.0); EOS # 0.6 10*3/uL (0.0-0.4); EOS % 8.5 % (1.0-4.0); HEMATOCRIT 32.6 % (37.0-47.0); LYMPH # 0.5 10*3/uL (1.3-4.4); MEAN CELL VOLUME 80.1 fl (81.0-99.0); MEAN CORPUSCULAR HGB 22.9 pg (27.0-31.0); MEAN CORPUSCULAR HGB CONC 28.5 g/dl (33.0-37.0); MEAN PLATELET VOLUME 10.3 fl (9.6-12.3); MONO # 0.5 10*3/uL (0.1-1.0); NEUT # 5.1 10*3/uL (2.3-7.9); NEUT % 76.4 % (47.0-73.0); PLATELET COUNT AUTOMATED 192 10*3/uL (130-400); RED BLOOD COUNT 4.07 10*6/uL (4.10-5.10); RED CELL DISTRI WIDTH 18.1 % (0-14.5); WHITE BLOOD COUNT 6.7 10*3/uL (4.8-10.8)
[2019-10-04 19:42] LABS: ALBUMIN 3.3 gm/dl (3.1-4.5); CREATININE 2.07 mg/dL (0.55-1.02); POTASSIUM 2.9 mmol/L (3.5-5.1); TOTAL PROTEIN 6.9 gm/dL (6.4-8.2)
[2019-10-05 00:51] VITALS: BP 126/78
== END 2019-10-05 01:14 | disposition other institution (70) ==
LOC: ED 18:37
PROVIDERS: Emergency Medicine
DX: E65 Localized adiposity (principal); J90 Pleural effusion, not elsewhere classified; I48.91 Unspecified atrial fibrillation; F41.9 Anxiety disorder, unspecified; K21.9 Gastro-esophageal reflux disease without esophagitis; G47.33 Obstructive sleep apnea (adult) (pediatric); E78.5 Hyperlipidemia, unspecified; J44.9 Chronic obstructive pulmonary disease, unspecified; I12.9 Hypertensive chronic kidney disease with stage 1 through stage 4 chronic kidney disease, or unspecified chronic kidney disease; E11.22 Type 2 diabetes mellitus with diabetic chronic kidney disease; N18.9 Chronic kidney disease, unspecified; I25.10 Atherosclerotic heart disease of native coronary artery without angina pectoris; Z79.899 Other long term (current) drug therapy; Z79.4 Long term (current) use of insulin; Z79.82 Long term (current) use of aspirin; Z87.891 Personal history of nicotine dependence

== ENCOUNTER 2019-10-12 11:53 | Inpatient (IN) | payer MEDICARE ==
[~2019-10-12] VITALS: Ht 157.4 cm; Wt 105.9 kg
[2019-10-12 12:11] LABS: BASO % 0.3 % (0.0-1.0); EOS # 0.8 10*3/uL (0.0-0.4); EOS % 10.8 % (1.0-4.0); LYMPH # 0.5 10*3/uL (1.3-4.4); LYMPH % 6.1 % (27.0-41.0); MEAN CELL VOLUME 79.8 fl (81.0-99.0); MEAN CORPUSCULAR HGB 23.2 pg (27.0-31.0); MEAN CORPUSCULAR HGB CONC 29.1 g/dl (33.0-37.0); MEAN PLATELET VOLUME 10.1 fl (9.6-12.3); MONO # 0.4 10*3/uL (0.1-1.0); NEUT # 5.7 10*3/uL (2.3-7.9); NEUT % 77.3 % (47.0-73.0); PLATELET COUNT AUTOMATED 215 10*3/uL (130-400); RED BLOOD COUNT 4.01 10*6/uL (4.10-5.10); RED CELL DISTRI WIDTH 18.6 % (0-14.5); WHITE BLOOD COUNT 7.3 10*3/uL (4.8-10.8)
[2019-10-12 12:17] VITALS: BP 126/50
[2019-10-12 12:22] LABS: ACT PARTIAL THROMBO TIME 27.9 SECONDS (20.0-32.1); INTERNATIONAL NORM RATIO 1.3 (2.0-3.5)
[2019-10-12 12:29] LABS: ALBUMIN 3.1 gm/dl (3.1-4.5); CREATININE 2.11 mg/dL (0.55-1.02); TOTAL PROTEIN 6.8 gm/dL (6.4-8.2); TROPONIN I 0.028 ng/ml (<0.045)
[2019-10-12 14:38] VITALS: BP 124/57
[2019-10-12] MEDS ORDERED: Metolazone5 MG PO (14:38)
[2019-10-12] MEDS ORDERED: PRILOSEC20 M1 PO (14:39)
[2019-10-12 15:36] LABS: BILIRUBIN NEGATIVE (NEGATIVE); BLOOD TRACE-LYSED (NEGATIVE); CLARITY CLEAR (CLEAR); COLOR YELLOW (YELLOW); GLUCOSE NEGATIVE (NEGATIVE); KETONE NEGATIVE (NEGATIVE); UROBILINOGEN 0.2 E.U./dl (0.2-1.0)
[2019-10-12 15:37] LABS: BACTERIA TRACE; EPITHELIAL CELLS 31-40; HYALINE CAST 0-2; LEUKO ESTERASE TRACE (NEGATIVE); NITRITE NEGATIVE (NEGATIVE); RBC 0-2 rbc/hpf (0-2)
[2019-10-12 16:00] VITALS: BP 115/47
[2019-10-12 20:00] VITALS: BP 129/57
[2019-10-13] VITALS: BP 123/62
[2019-10-13 07:51] LABS: BASO # 0.1 10*3/uL (0.0-0.1); BASO % 0.6 % (0.0-1.0); EOS # 1.1 10*3/uL (0.0-0.4); EOS % 12.5 % (1.0-4.0); HEMATOCRIT 31.2 % (37.0-47.0); LYMPH # 0.5 10*3/uL (1.3-4.4); MEAN CELL VOLUME 80.8 fl (81.0-99.0); MEAN CORPUSCULAR HGB 23.1 pg (27.0-31.0); MEAN CORPUSCULAR HGB CONC 28.5 g/dl (33.0-37.0); MONO # 0.6 10*3/uL (0.1-1.0); MONO % 6.6 % (3.0-9.0); NEUT # 6.5 10*3/uL (2.3-7.9); PLATELET COUNT AUTOMATED 237 10*3/uL (130-400); RED BLOOD COUNT 3.86 10*6/uL (4.10-5.10); WHITE BLOOD COUNT 8.8 10*3/uL (4.8-10.8)
[2019-10-13 08:00] VITALS: BP 126/54
[2019-10-13 08:05] LABS: ACT PARTIAL THROMBO TIME 26.9 SECONDS (20.0-32.1); INTERNATIONAL NORM RATIO 1.2 (2.0-3.5)
[2019-10-13 08:13] LABS: ALBUMIN 3.2 gm/dl (3.1-4.5); CREATININE 2.07 mg/dL (0.55-1.02)
[2019-10-13 08:18] LABS: FREE T4 1.33 ng/dl (0.76-1.46); THYROID STIM HORMONE (HS) 4.85 uIU/ml (0.358-4.75)
[2019-10-13 11:04] LABS: ABG BASE EXCESS 7.2 mmol/L (-2.0-2.0); ARTERIAL BLOOD GAS PH 7.458 (7.35-7.45)
[2019-10-13 12:00] VITALS: BP 126/59
[2019-10-13 16:00] VITALS: BP 115/47
[2019-10-13 20:00] VITALS: BP 113/47
[2019-10-14] VITALS: BP 117/52
[2019-10-14 07:33] LABS: BASO % 0.5 % (0.0-1.0); EOS % 11.8 % (1.0-4.0); HEMATOCRIT 31.2 % (37.0-47.0); LYMPH # 0.5 10*3/uL (1.3-4.4); LYMPH % 6.2 % (27.0-41.0); MEAN CELL VOLUME 80.8 fl (81.0-99.0); MEAN CORPUSCULAR HGB 23.1 pg (27.0-31.0); MEAN CORPUSCULAR HGB CONC 28.5 g/dl (33.0-37.0); MEAN PLATELET VOLUME 10.4 fl (9.6-12.3); MONO # 0.6 10*3/uL (0.1-1.0); MONO % 6.8 % (3.0-9.0); NEUT # 6.2 10*3/uL (2.3-7.9); NEUT % 74.2 % (47.0-73.0); PLATELET COUNT AUTOMATED 204 10*3/uL (130-400); RED BLOOD COUNT 3.86 10*6/uL (4.10-5.10); RED CELL DISTRI WIDTH 18.8 % (0-14.5); WHITE BLOOD COUNT 8.3 10*3/uL (4.8-10.8)
[2019-10-14 08:00] VITALS: BP 138/62
[2019-10-14 08:10] LABS: CREATININE 2.14 mg/dL (0.55-1.02)
[2019-10-14 12:00] VITALS: BP 102/69
[2019-10-14 16:00] VITALS: BP 121/60
[2019-10-14 18:44] LABS: CREATININE 2.22 mg/dL (0.55-1.02); POTASSIUM 3.3 mmol/L (3.5-5.1)
[2019-10-14 20:00] VITALS: BP 100/47
[2019-10-15] VITALS: BP 119/61
[2019-10-15 08:00] VITALS: BP 100/43
[2019-10-15 08:04] LABS: CREATININE 2.24 mg/dL (0.55-1.02); POTASSIUM 3.3 mmol/L (3.5-5.1)
[2019-10-15 12:00] VITALS: BP 115/57
[2019-10-15 16:00] VITALS: BP 110/46
[2019-10-15 20:00] VITALS: BP 108/51
[2019-10-16] VITALS: BP 132/64
[2019-10-16 06:11] LABS: BASO # 0.1 10*3/uL (0.0-0.1); BASO % 0.7 % (0.0-1.0); CREATININE 2.3 mg/dL (0.55-1.02); EOS # 1.1 10*3/uL (0.0-0.4); EOS % 12.2 % (1.0-4.0); HEMATOCRIT 33.5 % (37.0-47.0); LYMPH # 0.7 10*3/uL (1.3-4.4); LYMPH % 7.8 % (27.0-41.0); MEAN CELL VOLUME 80.7 fl (81.0-99.0); MEAN CORPUSCULAR HGB 23.1 pg (27.0-31.0); MEAN CORPUSCULAR HGB CONC 28.7 g/dl (33.0-37.0); MEAN PLATELET VOLUME 9.6 fl (9.6-12.3); MONO # 0.6 10*3/uL (0.1-1.0); MONO % 6.9 % (3.0-9.0); NEUT # 6.6 10*3/uL (2.3-7.9); NEUT % 71.9 % (47.0-73.0); PLATELET COUNT AUTOMATED 222 10*3/uL (130-400); POTASSIUM 3.2 mmol/L (3.5-5.1); RED BLOOD COUNT 4.15 10*6/uL (4.10-5.10); RED CELL DISTRI WIDTH 19.1 % (0-14.5); WHITE BLOOD COUNT 9.2 10*3/uL (4.8-10.8)
[2019-10-16 08:00] VITALS: BP 120/58
[2019-10-16 12:00] VITALS: BP 125/55
[2019-10-16] MEDS ORDERED: APRESOLINE25 MG PO (13:42)
[2019-10-16] MEDS ORDERED: PRILOSEC20 M1 PO (13:42)
[2019-10-16] MEDS ORDERED: PROAIR HFA8.5 GM INH (13:42)
[2019-10-16] MEDS ORDERED: LIPITOR80 MG PO (13:42)
[2019-10-16] MEDS ORDERED: IMDUR SA30 MG PO (13:42)
[2019-10-16] MEDS ORDERED: ADMELOG100 UNIT/1 SC (13:42)
[2019-10-16] MEDS ORDERED: ALPRAZOLAM0.25 M2 PO (13:42)
[2019-10-16] MEDS ORDERED: TOPROL XL50 M1 PO (13:42)
[2019-10-16] MEDS ORDERED: LANTUS SOL100 UNIT/1 SC (13:42)
[2019-10-16] MEDS ORDERED: Metolazone5 MG PO (13:42)
[2019-10-16] MEDS ORDERED: LASIX80 MG PO (13:42)
[2019-10-16] MEDS ORDERED: XARE15TA PO (13:42)
[2019-10-16] MEDS ORDERED: LAMICTAL200 MG PO (13:42)
[2019-10-16] MEDS ORDERED: FERROUS SULFAT325 MG PO (13:42)
[2019-10-16] MEDS ORDERED: VIIBRYD20 M1 PO (13:42)
[2019-10-16] MEDS ORDERED: DALIRESP500 MC1 PO (13:42)
[2019-10-16] MEDS ORDERED: KLOR-CON M2020 ME1 PO (13:42)
[2019-10-16] MEDS ORDERED: Synthroid,Levo25 MCG PO (13:42)
[2019-10-16 16:00] VITALS: BP 128/66
== END 2019-10-16 18:24 | disposition home health service (06) | DRG 291 ==
LOC: ED 11:53 → 5E 13:02 → EDHOLD 13:02 → 5E 13:20
PROVIDERS: Emergency Medicine; Family Medicine; Internal Medicine; Internal Medicine Critical Care Medicine; Student in an Organized Health Care Education/Training Program; ADMIT Internal Medicine
DX: I13.0 Hypertensive heart and chronic kidney disease with heart failure and stage 1 through stage 4 chronic kidney disease, or unspecified chronic kidney disease (principal); I50.43 Acute on chronic combined systolic (congestive) and diastolic (congestive) heart failure; N17.0 Acute kidney failure with tubular necrosis; I48.20 Chronic atrial fibrillation, unspecified; J44.1 Chronic obstructive pulmonary disease with (acute) exacerbation; Z68.43 Body mass index [BMI] 50.0-59.9, adult; E87.3 Alkalosis; I25.5 Ischemic cardiomyopathy; D50.9 Iron deficiency anemia, unspecified; E66.01 Morbid (severe) obesity due to excess calories; E87.6 Hypokalemia; K64.4 Residual hemorrhoidal skin tags; I25.10 Atherosclerotic heart disease of native coronary artery without angina pectoris; N18.3 Chronic kidney disease, stage 3 (moderate); G47.33 Obstructive sleep apnea (adult) (pediatric); Z66 Do not resuscitate; Z51.5 Encounter for palliative care; R31.29 Other microscopic hematuria; E11.65 Type 2 diabetes mellitus with hyperglycemia; E11.22 Type 2 diabetes mellitus with diabetic chronic kidney disease; F41.1 Generalized anxiety disorder; E78.5 Hyperlipidemia, unspecified; K21.9 Gastro-esophageal reflux disease without esophagitis; F31.9 Bipolar disorder, unspecified; Z95.1 Presence of aortocoronary bypass graft; Z95.5 Presence of coronary angioplasty implant and graft; Z86.711 Personal history of pulmonary embolism; I25.2 Old myocardial infarction; Z79.01 Long term (current) use of anticoagulants; Z79.4 Long term (current) use of insulin; Z99.81 Dependence on supplemental oxygen; Z87.891 Personal history of nicotine dependence; Z90.710 Acquired absence of both cervix and uterus; Z82.49 Family history of ischemic heart disease and other diseases of the circulatory system; Z80.3 Family history of malignant neoplasm of breast; Z80.0 Family history of malignant neoplasm of digestive organs; Z79.82 Long term (current) use of aspirin; Z79.899 Other long term (current) drug therapy

== ENCOUNTER → 2019-12-12 | Outpatient (CLI) | payer MEDICARE ==
[~2019-12-12] MED LIST changes: +APRESOLINE25 MG PO; +IMDUR SA30 MG PO; +PRILOSEC20 M1 PO
== END | disposition home or self-care (01) ==
LOC: CARD 00:17
PROVIDERS: ATTEND Internal Medicine Cardiovascular Disease
DX: I25.5 Ischemic cardiomyopathy (principal)

== ENCOUNTER → 2019-12-31 | Outpatient (CLI) | payer MEDICARE | END | disposition home or self-care (01) | LOC: RAD 13:59 | PROVIDERS: ATTEND Internal Medicine Critical Care Medicine | DX: J90 Pleural effusion, not elsewhere classified (principal); R06.00 Dyspnea, unspecified; J44.9 Chronic obstructive pulmonary disease, unspecified; I25.10 Atherosclerotic heart disease of native coronary artery without angina pectoris; I10 Essential (primary) hypertension ==

== ENCOUNTER → 2020-01-08 | Outpatient (CLI) | payer MEDICARE ==
[2020-01-09 10:23] LABS: CREATININE 1.66 mg/dL (0.55-1.02); POTASSIUM 4.2 mmol/L (3.5-5.1)
== END | disposition home or self-care (01) ==
LOC: LAB 16:09
PROVIDERS: ATTEND Internal Medicine
DX: I15.1 Hypertension secondary to other renal disorders (principal); N28.89 Other specified disorders of kidney and ureter; R06.02 Shortness of breath

== ENCOUNTER 2020-01-19 16:01 | Emergency (ER) | payer MEDICARE ==
[~2020-01-19] VITALS: Ht 157.4 cm; Wt 93.0 kg
[2020-01-19 17:19] LABS: BASO % 0.5 % (0.0-1.0); EOS # 0.4 10*3/uL (0.0-0.4); EOS % 5.3 % (1.0-4.0); LYMPH # 0.5 10*3/uL (1.3-4.4); LYMPH % 7.2 % (27.0-41.0); MEAN CELL VOLUME 82.1 fl (81.0-99.0); MEAN CORPUSCULAR HGB 23.9 pg (27.0-31.0); MEAN CORPUSCULAR HGB CONC 29.1 g/dl (33.0-37.0); MEAN PLATELET VOLUME 9.7 fl (9.6-12.3); MONO # 0.5 10*3/uL (0.1-1.0); MONO % 6.5 % (3.0-9.0); PLATELET COUNT AUTOMATED 196 10*3/uL (130-400); RED BLOOD COUNT 4.02 10*6/uL (4.10-5.10); RED CELL DISTRI WIDTH 19.4 % (0-14.5); WHITE BLOOD COUNT 7.5 10*3/uL (4.8-10.8)
[2020-01-19 17:27] LABS: INTERNATIONAL NORM RATIO 1.7 (2.0-3.5)
[2020-01-19 17:34] LABS: CREATININE 1.64 mg/dL (0.55-1.02); POTASSIUM 2.7 mmol/L (3.5-5.1)
[2020-01-19] MEDS ORDERED: SALINE MIST 4444 ML NAS (18:12)
[2020-01-20] MEDS ORDERED: NASA MIST SALIN75 ML INH (17:28)
== END 2020-01-19 18:52 | disposition home or self-care (01) ==
LOC: ED 16:01
PROVIDERS: Nurse Practitioner Family
DX: R04.0 Epistaxis (principal); E87.6 Hypokalemia; I48.91 Unspecified atrial fibrillation; E11.9 Type 2 diabetes mellitus without complications; I25.2 Old myocardial infarction; J44.9 Chronic obstructive pulmonary disease, unspecified; I50.9 Heart failure, unspecified; I11.0 Hypertensive heart disease with heart failure; Z79.82 Long term (current) use of aspirin; Z87.891 Personal history of nicotine dependence

== ENCOUNTER 2020-01-20 14:32 | Emergency (ER) | payer MEDICARE ==
[~2020-01-20] VITALS: Wt 92.5 kg
[~2020-01-20 14:32] MED LIST changes: +SALINE MIST 4444 ML NAS
[2020-01-20 14:47] VITALS: BP 129/55
[2020-01-20] MEDS ORDERED: NASA MIST SALIN75 ML INH (17:28)
[2020-01-21] MEDS ORDERED: AUGMENTIN 875875 MG PO (01:46)
== END 2020-01-20 17:32 | disposition home or self-care (01) ==
LOC: ED 14:32
DX: R04.0 Epistaxis (principal); I12.9 Hypertensive chronic kidney disease with stage 1 through stage 4 chronic kidney disease, or unspecified chronic kidney disease; N18.30 Chronic kidney disease, stage 3 unspecified; J44.9 Chronic obstructive pulmonary disease, unspecified; K21.9 Gastro-esophageal reflux disease without esophagitis; E78.5 Hyperlipidemia, unspecified; Z79.899 Other long term (current) drug therapy

== ENCOUNTER 2020-01-20 22:08 | Emergency (ER) | payer MEDICARE ==
[~2020-01-20] VITALS: Ht 157.4 cm; Wt 93.0 kg
[~2020-01-20 22:08] MED LIST changes: +NASA MIST SALIN75 ML INH
[2020-01-21 01:46] VITALS: BP 108/53
[2020-01-21] MEDS ORDERED: AUGMENTIN 875875 MG PO (01:46)
== END 2020-01-21 02:12 | disposition home or self-care (01) ==
LOC: ED 22:08
DX: R04.0 Epistaxis (principal); I25.10 Atherosclerotic heart disease of native coronary artery without angina pectoris; I13.0 Hypertensive heart and chronic kidney disease with heart failure and stage 1 through stage 4 chronic kidney disease, or unspecified chronic kidney disease; I50.9 Heart failure, unspecified; N18.30 Chronic kidney disease, stage 3 unspecified; J44.9 Chronic obstructive pulmonary disease, unspecified; K21.9 Gastro-esophageal reflux disease without esophagitis; E78.5 Hyperlipidemia, unspecified; G47.33 Obstructive sleep apnea (adult) (pediatric); Z87.891 Personal history of nicotine dependence; Z79.899 Other long term (current) drug therapy; Z79.82 Long term (current) use of aspirin

== ENCOUNTER 2020-01-21 14:51 | Emergency (ER) | payer MEDICARE ==
[~2020-01-21] VITALS: Ht 157.4 cm; Wt 92.5 kg
[~2020-01-21 14:51] MED LIST changes: +AUGMENTIN 875875 MG PO
[2020-01-21 14:56] VITALS: BP 133/61
== END 2020-01-21 16:46 | disposition home or self-care (01) ==
LOC: ED 14:51
DX: R04.0 Epistaxis (principal)

== ENCOUNTER → 2020-01-28 | Outpatient (CLI) | payer MEDICARE ==
[2020-01-28 13:20] LABS: BASO % 0.3 % (0.0-1.0); EOS # 0.3 10*3/uL (0.0-0.4); EOS % 3.9 % (1.0-4.0); LYMPH # 0.8 10*3/uL (1.3-4.4); LYMPH % 8.9 % (27.0-41.0); MEAN CELL VOLUME 82.3 fl (81.0-99.0); MEAN CORPUSCULAR HGB 23.2 pg (27.0-31.0); MEAN CORPUSCULAR HGB CONC 28.2 g/dl (33.0-37.0); MEAN PLATELET VOLUME 9.8 fl (9.6-12.3); MONO # 0.6 10*3/uL (0.1-1.0); MONO % 7.2 % (3.0-9.0); NEUT # 6.8 10*3/uL (2.3-7.9); NEUT % 79.2 % (47.0-73.0); PLATELET COUNT AUTOMATED 210 10*3/uL (130-400); RED BLOOD COUNT 4.01 10*6/uL (4.10-5.10); RED CELL DISTRI WIDTH 18.5 % (0-14.5); WHITE BLOOD COUNT 8.6 10*3/uL (4.8-10.8)
== END | disposition home or self-care (01) ==
LOC: LAB 12:35
PROVIDERS: ATTEND Internal Medicine Critical Care Medicine
DX: D64.9 Anemia, unspecified (principal); R06.02 Shortness of breath

== ENCOUNTER → 2020-01-30 | Outpatient (CLI) | payer MEDICARE ==
[2020-01-30 11:18] LABS: CREATININE 1.85 mg/dL (0.55-1.02)
== END | disposition home or self-care (01) ==
LOC: LAB 10:33
PROVIDERS: ATTEND Internal Medicine
DX: I50.23 Acute on chronic systolic (congestive) heart failure (principal)

== ENCOUNTER → 2020-02-04 | Outpatient (CLI) | payer MEDICARE ==
[~2020-02-04] MED LIST changes: +APRESOLINE10 MG PO; +ATORVASTATIN CA40 M1 PO; +BUMETANIDE2 MG PO; +Carafate1 GM PO; +ISORDIL10 M1 PO; +KAPSPARGO SPRIN50 MG PO; +LAMOTRIGINE200 MG PO; +LEVOTHYROXINE50 MCG PO; +OMEPRAZOLE40 MG PO; +POTASSIUM CHLO20 ME4 PO; +VENTOLIN 02.5 MG/3 M INH; +Zaroxolyn,Diul2.5 MG PO
[2020-02-04 13:58] LABS: CREATININE 1.85 mg/dL (0.55-1.02)
== END | disposition home or self-care (01) ==
LOC: LAB 13:17
PROVIDERS: ATTEND Internal Medicine
DX: I50.23 Acute on chronic systolic (congestive) heart failure (principal)

== ENCOUNTER 2020-03-24 14:55 | Inpatient (IN) | payer MEDICARE ==
[~2020-03-24] VITALS: Ht 157 cm; Wt 83.0 kg
[2020-03-24] VITALS (11 sets, daily range): BP systolic 11–147; BP diastolic 45–81
[~2020-03-24 14:55] MED LIST changes: -APRESOLINE10 MG PO; -ATORVASTATIN CA40 M1 PO; -BUMETANIDE2 MG PO; -Carafate1 GM PO; -ISORDIL10 M1 PO; -KAPSPARGO SPRIN50 MG PO; -LAMOTRIGINE200 MG PO; -LEVOTHYROXINE50 MCG PO; -OMEPRAZOLE40 MG PO; -POTASSIUM CHLO20 ME4 PO; -VENTOLIN 02.5 MG/3 M INH; -Zaroxolyn,Diul2.5 MG PO
[2020-03-24 15:26] LABS: BILIRUBIN Negative (Negative); BLOOD Negative (Negative); CLARITY Clear (Clear); COLOR Yellow (Yellow); GLUCOSE Negative (Negative); KETONE Negative (Negative); LEUKO ESTERASE Negative (Negative); NITRITE Negative (Negative); PH 5.5 (4.5-8.0); UROBILINOGEN 0.2 E.U./dl (0.0-1.0)
[2020-03-24 15:27] LABS: BASO # 0.1 10*3/uL (0.0-0.1); BASO % 0.6 % (0.0-1.0); EOS # 0.4 10*3/uL (0.0-0.4); EOS % 3.7 % (1.0-4.0); HEMATOCRIT 25.3 % (37.0-47.0); LYMPH # 0.6 10*3/uL (1.3-4.4); LYMPH % 6.7 % (27.0-41.0); MEAN CELL VOLUME 81.9 fl (81.0-99.0); MEAN CORPUSCULAR HGB 22.7 pg (27.0-31.0); MEAN CORPUSCULAR HGB CONC 27.7 g/dl (33.0-37.0); MEAN PLATELET VOLUME 9.6 fl (9.6-12.3); MONO # 0.6 10*3/uL (0.1-1.0); MONO % 6.4 % (3.0-9.0); NEUT # 7.9 10*3/uL (2.3-7.9); NEUT % 81.7 % (47.0-73.0); PLATELET COUNT AUTOMATED 273 10*3/uL (130-400); RED BLOOD COUNT 3.09 10*6/uL (4.10-5.10); RED CELL DISTRI WIDTH 19.9 % (0-14.5); WHITE BLOOD COUNT 9.6 10*3/uL (4.8-10.8)
[2020-03-24 15:37] LABS: RBC 0-2 rbc/hpf (0-2); WBC 0-2 wbc/hpf (0-5)
[2020-03-24 15:38] LABS: ACT PARTIAL THROMBO TIME 32.2 SECONDS (20.0-32.1); INTERNATIONAL NORM RATIO 1.6 (2.0-3.5)
[2020-03-24 15:42] LABS: ALBUMIN 3.1 gm/dl (3.1-4.5); CREATININE 1.84 mg/dL (0.55-1.02); POTASSIUM 3.1 mmol/L (3.5-5.1); TOTAL PROTEIN 7.3 gm/dL (6.4-8.2)
[2020-03-24] MEDS ORDERED: POTASSIUM CHLO20 ME4 PO (18:44)
[2020-03-24] MEDS ORDERED: APRESOLINE10 MG PO (18:45)
[2020-03-24] MEDS ORDERED: BUMETANIDE2 MG PO (18:47)
[2020-03-24] MEDS ORDERED: ISORDIL10 M1 PO (18:48)
[2020-03-24] MEDS ORDERED: ATORVASTATIN CA40 M1 PO (18:50)
[2020-03-24] MEDS ORDERED: XARE20MG PO (18:53)
[2020-03-24] MEDS ORDERED: LAMOTRIGINE200 MG PO (18:53)
--- NOTE | 2020-03-24 18:55 | NUR ---
I UPDATED THE MEDS FROM WHAT THE PATIENT BROUGHT IN
--- NOTE | 2020-03-24 19:31 | NUR ---
DR. SHELTON CONSULTED. NPO AFTER MIDNIGHT, CONSENT FOR PROCEEDURE AND PROTONIX AT 0600.
--- NOTE | 2020-03-24 23:00 | NUR ---
TOOK REPORT FROM RON. PATIENT RESTING.
[2020-03-25] VITALS (7 sets, daily range): BP systolic 111–143; BP diastolic 44–65
--- NOTE | 2020-03-25 03:32 | NUR ---
PATIENT UP TO BEDSIDE COMMODE AT THIS TIME. PER PATIENT FEELS LIKE HER SUGAR HAS DROPPED AND IS REQUESTING BGL AT THIS TIME. BGL 107 AT THIS TIME. PATIENT SITTING UP IN CHAIR WATCHING TV AT THIS TIME. RESPIRATIONS EASY, NON-LABORED. NO DISTRESS NOTED. RN WILL CONTINUE TO MONITOR.
--- NOTE | 2020-03-25 05:00 | NUR ---
PROVIDED PATIENT WITH DENTURE CUP, TOOTHBRUSH, TOOTHPASTE AT THIS TIME. PLACED DENTURES IN PERSONAL BAG PATIENT HAD AT BEDSIDE.
[2020-03-25 06:16] LABS: CREATININE 1.77 mg/dL (0.55-1.02); POTASSIUM 2.8 mmol/L (3.5-5.1); TOTAL PROTEIN 7.2 gm/dL (6.4-8.2)
[2020-03-25 06:22] LABS: FREE T4 1.4 ng/dl (0.76-1.46); THYROID STIM HORMONE (HS) 2.07 uIU/ml (0.358-4.75)
[2020-03-25 06:39] LABS: BASO # 0.1 10*3/uL (0.0-0.1); BASO % 0.6 % (0.0-1.0); EOS # 0.4 10*3/uL (0.0-0.4); HEMATOCRIT 29.3 % (37.0-47.0); LYMPH # 0.7 10*3/uL (1.3-4.4); LYMPH % 7.1 % (27.0-41.0); MEAN CELL VOLUME 82.5 fl (81.0-99.0); MEAN CORPUSCULAR HGB 23.9 pg (27.0-31.0); MEAN PLATELET VOLUME 9.7 fl (9.6-12.3); MONO # 0.7 10*3/uL (0.1-1.0); MONO % 7.2 % (3.0-9.0); NEUT # 8.1 10*3/uL (2.3-7.9); NEUT % 80.6 % (47.0-73.0); PLATELET COUNT AUTOMATED 263 10*3/uL (130-400); RED BLOOD COUNT 3.55 10*6/uL (4.10-5.10); RED CELL DISTRI WIDTH 19.3 % (0-14.5); WHITE BLOOD COUNT 10.1 10*3/uL (4.8-10.8)
[2020-03-25 07:10] LABS: ACT PARTIAL THROMBO TIME 28.1 SECONDS (20.0-32.1); INTERNATIONAL NORM RATIO 1.3 (2.0-3.5)
[2020-03-25 07:28] LABS: VITAMIN D, 25-HYDROXY 115.7 ng/mL (30-100)
--- NOTE | 2020-03-25 07:30 | NUR ---
BGL 116
--- NOTE | 2020-03-25 08:55 | NUR ---
0730- sleeping upon entering room and wakens to verbal stimuli. alert and oriented. skin warm and dry. pale in color. respirations even and unlabored. denying any pains. no distress noted. continuing to monitor. afib on the monitor with rate of 78. call du in reach. bed locked and low. no insulin coverage due to bgl. 0830- assisted pt into chair as requested. pt presents destress free. denying any pains.
--- NOTE | 2020-03-25 10:38 | NUR ---
PT OFF THE FLOOR TO OR FOR EGD WITH RN
--- NOTE | 2020-03-25 14:18 | NUR ---
gait steady to and from bedside commode. tolerated apple sause and diet gingerale. bm *2
--- NOTE | 2020-03-25 14:51 | NUR ---
PT REQUESTING XANAX STATING THAT SHE HAS ANXIETY AND TAKES .25MG. NO ORDER IN MAR NOTED.
--- NOTE | 2020-03-25 16:08 | NUR ---
PATIENT REQUESTING PRESCRIBED XANAX. DR LEVINE NOTIFIED. HE STATES HE WILL PUT IT IN.
[2020-03-25] MEDS ORDERED: KAPSPARGO SPRIN50 MG PO (18:25)
[2020-03-25] MEDS ORDERED: Zaroxolyn,Diul2.5 MG PO (18:26)
[2020-03-25] MEDS ORDERED: VENTOLIN 02.5 MG/3 M INH (18:27)
[2020-03-25] MEDS ORDERED: OMEPRAZOLE40 MG PO (18:28)
[2020-03-25] MEDS ORDERED: STIOLTO RESPIMAT4 GM INH (18:28)
[2020-03-25] MEDS ORDERED: LEVOTHYROXINE50 MCG PO (18:29)
--- NOTE | 2020-03-26 03:25 | NUR ---
PATIENT RESTING IN BED AT THIS TIME. RESPIRATIONS EASY, NON-LABORED ON 3L VIA NC. CALL LIGHT WITHIN REACH. RN WILL CONTINUE TO MONITOR.
[2020-03-26 05:18] VITALS: BP 143/53
[2020-03-26 05:49] LABS: CREATININE 1.64 mg/dL (0.55-1.02); POTASSIUM 2.8 mmol/L (3.5-5.1)
[2020-03-26 06:16] LABS: BASO % 0.2 % (0.0-1.0); EOS # 0.3 10*3/uL (0.0-0.4); EOS % 3.3 % (1.0-4.0); LYMPH # 0.6 10*3/uL (1.3-4.4); MEAN CELL VOLUME 82.9 fl (81.0-99.0); MEAN CORPUSCULAR HGB 23.7 pg (27.0-31.0); MEAN CORPUSCULAR HGB CONC 28.6 g/dl (33.0-37.0); MEAN PLATELET VOLUME 9.6 fl (9.6-12.3); MONO # 0.6 10*3/uL (0.1-1.0); MONO % 7.5 % (3.0-9.0); NEUT # 6.9 10*3/uL (2.3-7.9); NEUT % 81.5 % (47.0-73.0); PLATELET COUNT AUTOMATED 262 10*3/uL (130-400); WHITE BLOOD COUNT 8.4 10*3/uL (4.8-10.8)
[2020-03-26 07:43] VITALS: BP 118/52
[2020-03-26] MEDS ORDERED: Carafate1 GM PO (09:51)
== END 2020-03-26 11:36 | disposition home or self-care (01) | DRG 378 ==
LOC: ED 14:55 → EDHOLD 16:03 → 5E 03-26 08:29 → EDHOLD 03-26 08:29 → 5E 03-26 08:29 → EDHOLD 03-26 11:36
PROVIDERS: Hospitalist; Nurse Practitioner Family; ADMIT Family Medicine; ATTEND Family Medicine
PROC: 30233N1 Transfusion of Nonautologous Red Blood Cells into Peripheral Vein, Percutaneous Approach (ICD-10-PCS; principal; 2020-03-24)
PROC: 0DB78ZX Excision of Stomach, Pylorus, Via Natural or Artificial Opening Endoscopic, Diagnostic (ICD-10-PCS; 2020-03-25)
DX: K29.71 Gastritis, unspecified, with bleeding (principal); E87.1 Hypo-osmolality and hyponatremia; I13.0 Hypertensive heart and chronic kidney disease with heart failure and stage 1 through stage 4 chronic kidney disease, or unspecified chronic kidney disease; N18.4 Chronic kidney disease, stage 4 (severe); E44.0 Moderate protein-calorie malnutrition; I48.20 Chronic atrial fibrillation, unspecified; D62 Acute posthemorrhagic anemia; J44.9 Chronic obstructive pulmonary disease, unspecified; F41.9 Anxiety disorder, unspecified; I25.10 Atherosclerotic heart disease of native coronary artery without angina pectoris; I50.9 Heart failure, unspecified; F41.1 Generalized anxiety disorder; K21.9 Gastro-esophageal reflux disease without esophagitis; E78.5 Hyperlipidemia, unspecified; G47.33 Obstructive sleep apnea (adult) (pediatric); Z90.710 Acquired absence of both cervix and uterus; E83.41 Hypermagnesemia; R74.8 Abnormal levels of other serum enzymes; F31.9 Bipolar disorder, unspecified; E11.22 Type 2 diabetes mellitus with diabetic chronic kidney disease; E66.01 Morbid (severe) obesity due to excess calories; I25.5 Ischemic cardiomyopathy; E11.65 Type 2 diabetes mellitus with hyperglycemia; Z95.1 Presence of aortocoronary bypass graft; Z95.5 Presence of coronary angioplasty implant and graft; Z87.891 Personal history of nicotine dependence; Z82.49 Family history of ischemic heart disease and other diseases of the circulatory system; Z80.0 Family history of malignant neoplasm of digestive organs; Z80.3 Family history of malignant neoplasm of breast; Z79.82 Long term (current) use of aspirin; Z79.4 Long term (current) use of insulin; Z79.899 Other long term (current) drug therapy; Z79.01 Long term (current) use of anticoagulants; Z68.33 Body mass index [BMI] 33.0-33.9, adult

== ENCOUNTER → 2020-05-03 | Outpatient (CLI) | payer MEDICARE ==
[~2020-05-03] MED LIST changes: +APRESOLINE10 MG PO; +ATORVASTATIN CA40 M1 PO; +BUMETANIDE2 MG PO; +Carafate1 GM PO; +ISORDIL10 M1 PO; +KAPSPARGO SPRIN50 MG PO; +LAMOTRIGINE200 MG PO; +LEVOTHYROXINE50 MCG PO; +OMEPRAZOLE40 MG PO; +POTASSIUM CHLO20 ME4 PO; +VENTOLIN 02.5 MG/3 M INH; +Zaroxolyn,Diul2.5 MG PO
[2020-05-03 15:34] LABS: BASO # 0.1 10*3/uL (0.0-0.1); BASO % 0.7 % (0.0-1.0); EOS # 0.4 10*3/uL (0.0-0.4); EOS % 5.2 % (1.0-4.0); HEMATOCRIT 32.7 % (37.0-47.0); LYMPH # 0.6 10*3/uL (1.3-4.4); LYMPH % 8.4 % (27.0-41.0); MEAN CORPUSCULAR HGB 21.5 pg (27.0-31.0); MEAN CORPUSCULAR HGB CONC 27.2 g/dl (33.0-37.0); MEAN PLATELET VOLUME 9.3 fl (9.6-12.3); MONO # 0.6 10*3/uL (0.1-1.0); NEUT # 5.8 10*3/uL (2.3-7.9); NEUT % 77.3 % (47.0-73.0); PLATELET COUNT AUTOMATED 204 10*3/uL (130-400); RED BLOOD COUNT 4.14 10*6/uL (4.10-5.10); RED CELL DISTRI WIDTH 18.5 % (0-14.5); WHITE BLOOD COUNT 7.5 10*3/uL (4.8-10.8)
[2020-05-03 16:02] LABS: ALBUMIN 3.4 gm/dl (3.1-4.5); CREATININE 1.63 mg/dL (0.55-1.02); POTASSIUM 3.5 mmol/L (3.5-5.1); TOTAL PROTEIN 7.6 gm/dL (6.4-8.2); URIC ACID 9.8 mg/dL (2.6-6.0)
[2020-05-03 16:40] LABS: FERRITIN 64.9 ng/mL (10.0-291.0); PTH INTACT 78.9 pg/mL (18.5-88.0); VITAMIN D, 25-HYDROXY 114.1 ng/mL (30-100)
[2020-05-03 18:00] LABS: BILIRUBIN Negative (Negative); BLOOD Negative (Negative); CLARITY Clear (Clear); COLOR Yellow (Yellow); GLUCOSE Negative (Negative); KETONE Negative (Negative); LEUKO ESTERASE Negative (Negative); NITRITE Negative (Negative); PH 6.5 (4.5-8.0); UROBILINOGEN 0.2 E.U./dl (0.0-1.0)
[2020-05-03 18:11] LABS: BACTERIA TRACE
[2020-05-04 10:12] LABS: CREATININE,URINE 12.7 mg/dL (Not Estab.)
== END | disposition home or self-care (01) ==
LOC: LAB 15:11
PROVIDERS: Registered Nurse; ATTEND Physician Assistant
DX: I13.0 Hypertensive heart and chronic kidney disease with heart failure and stage 1 through stage 4 chronic kidney disease, or unspecified chronic kidney disease (principal); E11.22 Type 2 diabetes mellitus with diabetic chronic kidney disease; I50.9 Heart failure, unspecified; D63.1 Anemia in chronic kidney disease; N18.30 Chronic kidney disease, stage 3 unspecified; E87.3 Alkalosis; I10 Essential (primary) hypertension; E87.70 Fluid overload, unspecified; E03.9 Hypothyroidism, unspecified; F31.30 Bipolar disorder, current episode depressed, mild or moderate severity, unspecified

== ENCOUNTER → 2020-05-20 | Outpatient (CLI) | payer MEDICARE | END | disposition home or self-care (01) | LOC: COVID19 11:46 | PROVIDERS: ATTEND Physician Assistant | DX: Z20.822 Contact with and (suspected) exposure to COVID-19 (principal) ==

== ENCOUNTER → 2020-05-31 | Outpatient (CLI) | payer MEDICARE ==
[2020-05-31 12:52] LABS: CREATININE 3.27 mg/dL (0.55-1.02); POTASSIUM 4.6 mmol/L (3.5-5.1)
== END | disposition home or self-care (01) ==
LOC: LAB 11:25
PROVIDERS: ATTEND Internal Medicine Nephrology
DX: N18.32 Chronic kidney disease, stage 3b (principal); E87.3 Alkalosis; D63.1 Anemia in chronic kidney disease

== ENCOUNTER → 2020-09-22 | Outpatient (CLI) | payer MEDICARE | END | disposition home or self-care (01) | LOC: RESCLI 01:14 | PROVIDERS: ATTEND Family Medicine | DX: I11.0 Hypertensive heart disease with heart failure (principal); I50.22 Chronic systolic (congestive) heart failure; I48.20 Chronic atrial fibrillation, unspecified; E11.9 Type 2 diabetes mellitus without complications; E03.9 Hypothyroidism, unspecified; F31.9 Bipolar disorder, unspecified; G47.00 Insomnia, unspecified; K59.00 Constipation, unspecified; D50.9 Iron deficiency anemia, unspecified; I25.10 Atherosclerotic heart disease of native coronary artery without angina pectoris; E78.5 Hyperlipidemia, unspecified; G89.29 Other chronic pain; K29.50 Unspecified chronic gastritis without bleeding; J44.9 Chronic obstructive pulmonary disease, unspecified; M54.5 Low back pain; G47.30 Sleep apnea, unspecified; F32.9 Major depressive disorder, single episode, unspecified; Z78.0 Asymptomatic menopausal state; Z90.710 Acquired absence of both cervix and uterus; Z79.82 Long term (current) use of aspirin; Z79.4 Long term (current) use of insulin; Z79.899 Other long term (current) drug therapy ==

== ENCOUNTER → 2020-11-25 | Outpatient (CLI) | payer MEDICARE ==
[~2020-11-25] MED LIST changes: +CEFUROXIME AXE500 MG PO
== END | disposition home or self-care (01) ==
LOC: RESCLI 00:37
PROVIDERS: ATTEND Internal Medicine
DX: F31.9 Bipolar disorder, unspecified (principal); I48.20 Chronic atrial fibrillation, unspecified; E11.9 Type 2 diabetes mellitus without complications; E03.9 Hypothyroidism, unspecified; G47.00 Insomnia, unspecified; D50.9 Iron deficiency anemia, unspecified; I25.10 Atherosclerotic heart disease of native coronary artery without angina pectoris; K29.50 Unspecified chronic gastritis without bleeding; I50.22 Chronic systolic (congestive) heart failure; E78.5 Hyperlipidemia, unspecified; J44.9 Chronic obstructive pulmonary disease, unspecified; G89.29 Other chronic pain; Z79.82 Long term (current) use of aspirin; Z79.899 Other long term (current) drug therapy; Z79.4 Long term (current) use of insulin

== ENCOUNTER 2020-12-02 10:04 | Inpatient (IN) | payer MEDICARE ==
[~2020-12-02] VITALS: Wt 78.0 kg
[~2020-12-02 10:04] MED LIST changes: -CEFUROXIME AXE500 MG PO
[2020-12-02 10:09] VITALS: BP 140/49
[2020-12-02 10:26] LABS: BASO % 0.7 % (0.0-1.0); EOS # 0.4 10*3/uL (0.0-0.4); EOS % 7.1 % (1.0-4.0); HEMATOCRIT 36.4 % (37.0-47.0); LYMPH # 0.8 10*3/uL (1.3-4.4); LYMPH % 13.8 % (27.0-41.0); MEAN CELL VOLUME 89.4 fl (81.0-99.0); MEAN CORPUSCULAR HGB 28.5 pg (27.0-31.0); MEAN CORPUSCULAR HGB CONC 31.9 g/dl (33.0-37.0); MEAN PLATELET VOLUME 8.8 fl (9.6-12.3); MONO # 0.5 10*3/uL (0.1-1.0); MONO % 8.1 % (3.0-9.0); NEUT # 4.2 10*3/uL (2.3-7.9); PLATELET COUNT AUTOMATED 147 10*3/uL (130-400); RED BLOOD COUNT 4.07 10*6/uL (4.10-5.10); RED CELL DISTRI WIDTH 16.1 % (0-14.5)
[2020-12-02 10:42] LABS: ALKALINE PHOSPHATASE 91 U/L (45-117); BUN 84 mg/dl (7-24); CHLORIDE 110 mmol/L (98-107); CREATININE 2.84 mg/dL (0.55-1.02); LIPASE 187 U/L (73-393); POTASSIUM 4.7 mmol/L (3.5-5.1); SGOT/AST 19 IU/L (3-35); SGPT/ALT 27 U/L (12-78); SODIUM 140 mmol/L (136-145); TOTAL PROTEIN 7.8 gm/dL (6.4-8.2)
[2020-12-02 10:43] LABS: TROPONIN I < 0.015 ng/ml (<0.045)
[2020-12-02 10:50] LABS: BILIRUBIN Negative (Negative); BLOOD Trace-Lysed (Negative); CLARITY Cloudy (Clear); COLOR Yellow (Yellow); GLUCOSE Negative (Negative); KETONE Negative (Negative); LEUKO ESTERASE 3+ (Negative); NITRITE Negative (Negative); SPECIFIC GRAVITY <= 1.005 (1.001-1.030); UROBILINOGEN 0.2 E.U./dl (0.0-1.0)
[2020-12-02 10:58] LABS: BACTERIA 2+; RBC 0-2 rbc/hpf (0-2); WBC TNTC wbc/hpf (0-5)
[2020-12-02] MEDS ORDERED: CEFUROXIME AXE500 MG PO (15:01)
== END 2020-12-02 15:49 | disposition left against medical advice (07) | DRG 689 ==
LOC: ED 10:04 → EDHOLD 12:12
PROVIDERS: Emergency Medicine; ADMIT Internal Medicine; ATTEND Internal Medicine
DX: N39.0 Urinary tract infection, site not specified (principal); N17.0 Acute kidney failure with tubular necrosis; I48.20 Chronic atrial fibrillation, unspecified; I13.0 Hypertensive heart and chronic kidney disease with heart failure and stage 1 through stage 4 chronic kidney disease, or unspecified chronic kidney disease; N18.4 Chronic kidney disease, stage 4 (severe); I50.9 Heart failure, unspecified; E11.22 Type 2 diabetes mellitus with diabetic chronic kidney disease; F41.1 Generalized anxiety disorder; J44.9 Chronic obstructive pulmonary disease, unspecified; E78.5 Hyperlipidemia, unspecified; K21.9 Gastro-esophageal reflux disease without esophagitis; G47.33 Obstructive sleep apnea (adult) (pediatric); D64.9 Anemia, unspecified; E87.8 Other disorders of electrolyte and fluid balance, not elsewhere classified; E83.41 Hypermagnesemia; Z53.29 Procedure and treatment not carried out because of patient's decision for other reasons; E66.01 Morbid (severe) obesity due to excess calories; I25.5 Ischemic cardiomyopathy; F31.9 Bipolar disorder, unspecified; I25.10 Atherosclerotic heart disease of native coronary artery without angina pectoris; Z79.4 Long term (current) use of insulin; Z90.710 Acquired absence of both cervix and uterus; Z87.891 Personal history of nicotine dependence; Z95.5 Presence of coronary angioplasty implant and graft; Z80.0 Family history of malignant neoplasm of digestive organs; Z80.3 Family history of malignant neoplasm of breast; Z82.49 Family history of ischemic heart disease and other diseases of the circulatory system; Z83.3 Family history of diabetes mellitus; Z82.3 Family history of stroke; I25.2 Old myocardial infarction; Z86.711 Personal history of pulmonary embolism; Z95.1 Presence of aortocoronary bypass graft; Z79.82 Long term (current) use of aspirin; Z79.899 Other long term (current) drug therapy

== ENCOUNTER 2020-12-30 15:23 | Emergency (ER) | payer MEDICARE ==
[~2020-12-30] VITALS: Ht 157.4 cm; Wt 77.6 kg
[~2020-12-30 15:23] MED LIST changes: +CEFUROXIME AXE500 MG PO
[2020-12-30 15:38] VITALS: BP 148/50
[2020-12-30 16:16] LABS: BASO # 0.1 10*3/uL (0.0-0.1); BASO % 0.7 % (0.0-1.0); EOS # 0.5 10*3/uL (0.0-0.4); EOS % 6.2 % (1.0-4.0); HEMATOCRIT 38.4 % (37.0-47.0); LYMPH # 0.9 10*3/uL (1.3-4.4); LYMPH % 12.8 % (27.0-41.0); MEAN CELL VOLUME 90.1 fl (81.0-99.0); MEAN CORPUSCULAR HGB 28.6 pg (27.0-31.0); MEAN CORPUSCULAR HGB CONC 31.8 g/dl (33.0-37.0); MEAN PLATELET VOLUME 9.2 fl (9.6-12.3); MONO # 0.4 10*3/uL (0.1-1.0); MONO % 5.4 % (3.0-9.0); NEUT # 5.4 10*3/uL (2.3-7.9); NEUT % 74.6 % (47.0-73.0); PLATELET COUNT AUTOMATED 148 10*3/uL (130-400); RED BLOOD COUNT 4.26 10*6/uL (4.10-5.10); RED CELL DISTRI WIDTH 15.3 % (0-14.5); WHITE BLOOD COUNT 7.3 10*3/uL (4.8-10.8)
[2020-12-30 16:33] LABS: BUN 89 mg/dl (7-24); CHLORIDE 111 mmol/L (98-107); CPK 41 U/L (26-192); CREATININE 3.07 mg/dL (0.55-1.02); SODIUM 140 mmol/L (136-145)
[2020-12-30 16:34] LABS: TROPONIN I < 0.015 ng/ml (<0.045)
[2020-12-30 20:52] LABS: ALBUMIN 3.5 gm/dl (3.1-4.5); CREATININE 2.85 mg/dL (0.55-1.02); POTASSIUM 4.8 mmol/L (3.5-5.1); TOTAL PROTEIN 6.9 gm/dL (6.4-8.2)
== END 2020-12-30 22:06 | disposition home or self-care (01) ==
LOC: ED 15:23
PROVIDERS: Emergency Medicine; Physician Assistant
DX: N28.9 Disorder of kidney and ureter, unspecified (principal); Z79.899 Other long term (current) drug therapy; Z79.82 Long term (current) use of aspirin; Z87.891 Personal history of nicotine dependence

== ENCOUNTER → 2021-01-21 | Outpatient (CLI) | payer MEDICARE ==
[2021-01-21 16:00] LABS: BASO % 0.6 % (0.0-1.0); EOS # 0.1 10*3/uL (0.0-0.4); EOS % 2.1 % (1.0-4.0); HEMATOCRIT 39.1 % (37.0-47.0); LYMPH # 0.6 10*3/uL (1.3-4.4); LYMPH % 11.9 % (27.0-41.0); MEAN CORPUSCULAR HGB 27.5 pg (27.0-31.0); MEAN CORPUSCULAR HGB CONC 29.9 g/dl (33.0-37.0); MONO # 0.4 10*3/uL (0.1-1.0); MONO % 7.1 % (3.0-9.0); NEUT # 4.1 10*3/uL (2.3-7.9); NEUT % 77.7 % (47.0-73.0); PLATELET COUNT AUTOMATED 142 10*3/uL (130-400); RED BLOOD COUNT 4.25 10*6/uL (4.10-5.10); RED CELL DISTRI WIDTH 15.1 % (0-14.5); WHITE BLOOD COUNT 5.2 10*3/uL (4.8-10.8)
[2021-01-21 16:15] LABS: ALBUMIN 3.6 gm/dl (3.1-4.5); CREATININE 2.29 mg/dL (0.55-1.02); POTASSIUM 4.9 mmol/L (3.5-5.1)
== END | disposition home or self-care (01) ==
LOC: US 15:00 → LAB 15:04
PROVIDERS: ATTEND Internal Medicine Nephrology
DX: N28.89 Other specified disorders of kidney and ureter (principal); N18.4 Chronic kidney disease, stage 4 (severe); R16.1 Splenomegaly, not elsewhere classified

== ENCOUNTER → 2021-02-24 | Outpatient (CLI) | payer MEDICARE | END | disposition home or self-care (01) | LOC: MAMMO 10:58 | PROVIDERS: ATTEND Physician Assistant | DX: Z12.31 Encounter for screening mammogram for malignant neoplasm of breast (principal) ==

== ENCOUNTER → 2021-04-06 | Outpatient (CLI) | payer MEDICARE ==
[2021-04-06 13:57] LABS: BILIRUBIN Negative (Negative); BLOOD Negative (Negative); CLARITY Cloudy (Clear); COLOR Yellow (Yellow); GLUCOSE Negative (Negative); KETONE Negative (Negative); LEUKO ESTERASE Negative (Negative); NITRITE Negative (Negative); UROBILINOGEN 0.2 E.U./dl (0.0-1.0)
[2021-04-06 13:57] LABS: BASO # 0.1 10*3/uL (0.0-0.1); EOS # 0.3 10*3/uL (0.0-0.4); EOS % 4.5 % (1.0-4.0); HEMATOCRIT 38.6 % (37.0-47.0); LYMPH # 0.7 10*3/uL (1.3-4.4); LYMPH % 12.8 % (27.0-41.0); MEAN CELL VOLUME 90.8 fl (81.0-99.0); MEAN CORPUSCULAR HGB CONC 30.8 g/dl (33.0-37.0); MEAN PLATELET VOLUME 9.3 fl (9.6-12.3); MONO # 0.3 10*3/uL (0.1-1.0); MONO % 5.4 % (3.0-9.0); NEUT # 4.3 10*3/uL (2.3-7.9); NEUT % 74.7 % (47.0-73.0); PLATELET COUNT AUTOMATED 156 10*3/uL (130-400); RED BLOOD COUNT 4.25 10*6/uL (4.10-5.10); RED CELL DISTRI WIDTH 17.7 % (0-14.5); WHITE BLOOD COUNT 5.8 10*3/uL (4.8-10.8)
[2021-04-06 14:05] LABS: URINE CREATININE RANDOM 51.2 mg/dL
[2021-04-06 14:08] LABS: ALBUMIN 3.8 gm/dl (3.1-4.5); CREATININE 2.36 mg/dL (0.55-1.02)
[2021-04-06 14:12] LABS: BACTERIA 2+; EPITHELIAL CELLS TNTC; WBC 0-2 wbc/hpf (0-5)
[2021-04-06 14:39] LABS: FERRITIN 74.5 ng/mL (10.0-291.0); VITAMIN D, 25-HYDROXY 26.4 ng/mL (30-100)
== END | disposition home or self-care (01) ==
LOC: LAB 13:32
PROVIDERS: ATTEND Internal Medicine Nephrology
DX: N18.4 Chronic kidney disease, stage 4 (severe) (principal); N25.81 Secondary hyperparathyroidism of renal origin

== ENCOUNTER → 2021-07-20 | Outpatient (CLI) | payer MEDICARE | END | disposition home or self-care (01) | LOC: RAD 14:30 | PROVIDERS: ATTEND Physician Assistant | DX: M54.50 Low back pain, unspecified (principal); I48.20 Chronic atrial fibrillation, unspecified; I50.22 Chronic systolic (congestive) heart failure; E03.9 Hypothyroidism, unspecified; E78.5 Hyperlipidemia, unspecified; F31.9 Bipolar disorder, unspecified; E11.9 Type 2 diabetes mellitus without complications ==

== ENCOUNTER → 2021-09-14 | Outpatient (CLI) | payer MEDICARE ==
[2021-09-14 14:45] LABS: CREATININE 1.69 mg/dL (0.55-1.02); POTASSIUM 4.1 mmol/L (3.5-5.1)
== END | disposition home or self-care (01) ==
LOC: LAB 13:58
PROVIDERS: ATTEND Nurse Practitioner Adult Health
DX: I50.22 Chronic systolic (congestive) heart failure (principal); Z79.899 Other long term (current) drug therapy

== ENCOUNTER 2021-10-07 16:55 | Inpatient (IN) | payer MEDICARE ==
[~2021-10-07] VITALS: Ht 157 cm; Wt 84.0 kg
[2021-10-07 17:00] VITALS: BP 99/31
[2021-10-07 18:37] LABS: BASO # 0.1 10*3/uL (0.0-0.1); BASO % 0.6 % (0.0-1.0); EOS # 0.5 10*3/uL (0.0-0.4); EOS % 3.6 % (1.0-4.0); HEMATOCRIT 32.6 % (37.0-47.0); LYMPH # 0.9 10*3/uL (1.3-4.4); LYMPH % 7.2 % (27.0-41.0); MEAN CELL VOLUME 81.7 fl (81.0-99.0); MEAN CORPUSCULAR HGB 28.1 pg (27.0-31.0); MEAN CORPUSCULAR HGB CONC 34.4 g/dl (33.0-37.0); MEAN PLATELET VOLUME 9.6 fl (9.6-12.3); MONO # 0.5 10*3/uL (0.1-1.0); MONO % 3.6 % (3.0-9.0); NEUT # 10.8 10*3/uL (2.3-7.9); NEUT % 84.4 % (47.0-73.0); PLATELET COUNT AUTOMATED 183 10*3/uL (130-400); RED BLOOD COUNT 3.99 10*6/uL (4.10-5.10); RED CELL DISTRI WIDTH 15.8 % (0-14.5); WHITE BLOOD COUNT 12.8 10*3/uL (4.8-10.8)
[2021-10-07 18:57] LABS: CREATININE 2.12 mg/dL (0.55-1.02); POTASSIUM 3.9 mmol/L (3.5-5.1); TOTAL PROTEIN 6.4 gm/dL (6.4-8.2)
[2021-10-07 19:40] VITALS: BP 112/76
[2021-10-07 22:17] VITALS: BP 124/84
[2021-10-07 22:33] LABS: INTERNATIONAL NORM RATIO 1.1 (2.0-3.5)
[2021-10-07 22:55] VITALS: BP 123/41
[2021-10-07] MEDS ORDERED: ALLOPURINOL100 MG PO (23:22)
[2021-10-07] MEDS ORDERED: POTASSIUM CHLO10 MEQ PO (23:24)
[2021-10-07] MEDS ORDERED: LAMOTRIGINE25 M1 PO (23:26)
[2021-10-08 06:07] LABS: BASO % 0.4 % (0.0-1.0); EOS # 0.1 10*3/uL (0.0-0.4); EOS % 0.7 % (1.0-4.0); HEMATOCRIT 32.6 % (37.0-47.0); LYMPH # 0.7 10*3/uL (1.3-4.4); LYMPH % 6.7 % (27.0-41.0); MEAN CELL VOLUME 82.3 fl (81.0-99.0); MEAN CORPUSCULAR HGB 28.3 pg (27.0-31.0); MEAN CORPUSCULAR HGB CONC 34.4 g/dl (33.0-37.0); MEAN PLATELET VOLUME 9.3 fl (9.6-12.3); MONO # 0.3 10*3/uL (0.1-1.0); MONO % 2.8 % (3.0-9.0); NEUT # 9.5 10*3/uL (2.3-7.9); NEUT % 88.9 % (47.0-73.0); PLATELET COUNT AUTOMATED 178 10*3/uL (130-400); RED BLOOD COUNT 3.96 10*6/uL (4.10-5.10); RED CELL DISTRI WIDTH 15.8 % (0-14.5); WHITE BLOOD COUNT 10.7 10*3/uL (4.8-10.8)
[2021-10-08 06:14] LABS: CREATININE 2.06 mg/dL (0.55-1.02); POTASSIUM 4.1 mmol/L (3.5-5.1); TOTAL PROTEIN 6.7 gm/dL (6.4-8.2)
[2021-10-08 08:00] VITALS: BP 99/87
[2021-10-08 12:00] VITALS: BP 125/75
[2021-10-08 16:00] VITALS: BP 102/48
[2021-10-08 20:00] VITALS: BP 115/48
[2021-10-09] VITALS: BP 104/51
[2021-10-09 08:00] VITALS: BP 100/44
[2021-10-09] MEDS ORDERED: SYMB160 INH (08:58)
[2021-10-09] MEDS ORDERED: Zaroxolyn,Diul2.5 MG PO (09:00)
[2021-10-09] MEDS ORDERED: ENTRESTO 24 MG1 EACH PO (09:03)
[2021-10-09] MEDS ORDERED: LANTUS SOL100 UNIT/1 SC (09:06)
[2021-10-09 09:53] LABS: BASO # 0.1 10*3/uL (0.0-0.1); BASO % 0.4 % (0.0-1.0); EOS # 0.3 10*3/uL (0.0-0.4); EOS % 2.7 % (1.0-4.0); HEMATOCRIT 27.7 % (37.0-47.0); LYMPH # 0.8 10*3/uL (1.3-4.4); LYMPH % 6.9 % (27.0-41.0); MEAN CORPUSCULAR HGB 28.8 pg (27.0-31.0); MEAN CORPUSCULAR HGB CONC 33.2 g/dl (33.0-37.0); MEAN PLATELET VOLUME 9.2 fl (9.6-12.3); MONO # 0.5 10*3/uL (0.1-1.0); MONO % 4.6 % (3.0-9.0); NEUT # 9.9 10*3/uL (2.3-7.9); NEUT % 84.8 % (47.0-73.0); PLATELET COUNT AUTOMATED 160 10*3/uL (130-400); RED BLOOD COUNT 3.19 10*6/uL (4.10-5.10); RED CELL DISTRI WIDTH 16.3 % (0-14.5); WHITE BLOOD COUNT 11.7 10*3/uL (4.8-10.8)
[2021-10-09 09:55] LABS: MEAN CELL VOLUME 86.8 fl (81.0-99.0)
[2021-10-09 10:03] LABS: CREATININE 2.23 mg/dL (0.55-1.02)
[2021-10-09 10:21] LABS: POTASSIUM 4.2 mmol/L (3.5-5.1)
[2021-10-09 12:00] VITALS: BP 122/40
[2021-10-09] MEDS ORDERED: BUMETANIDE2 MG PO (12:13)
[2021-10-09] MEDS ORDERED: XARE20MG PO (12:13)
[2021-10-09 16:00] VITALS: BP 130/50
[2021-10-09 20:00] VITALS: BP 139/47
[2021-10-10] VITALS: BP 142/71
[2021-10-10 08:00] VITALS: BP 134/50
[2021-10-10 11:19] LABS: BASO # 0.1 10*3/uL (0.0-0.1); BASO % 0.5 % (0.0-1.0); EOS # 0.3 10*3/uL (0.0-0.4); EOS % 3.6 % (1.0-4.0); HEMATOCRIT 26.2 % (37.0-47.0); LYMPH # 0.9 10*3/uL (1.3-4.4); LYMPH % 9.6 % (27.0-41.0); MEAN CELL VOLUME 84.5 fl (81.0-99.0); MEAN CORPUSCULAR HGB 28.7 pg (27.0-31.0); MEAN PLATELET VOLUME 8.6 fl (9.6-12.3); MONO # 0.5 10*3/uL (0.1-1.0); MONO % 5.2 % (3.0-9.0); NEUT # 7.7 10*3/uL (2.3-7.9); NEUT % 80.6 % (47.0-73.0); PLATELET COUNT AUTOMATED 133 10*3/uL (130-400); RED CELL DISTRI WIDTH 16.5 % (0-14.5); WHITE BLOOD COUNT 9.5 10*3/uL (4.8-10.8)
[2021-10-10 11:32] LABS: CREATININE 2.05 mg/dL (0.55-1.02); POTASSIUM 3.6 mmol/L (3.5-5.1)
[2021-10-10 12:00] VITALS: BP 119/50
[2021-10-10 16:00] VITALS: BP 144/52
[2021-10-10 20:00] VITALS: BP 136/58
[2021-10-11] VITALS (11 sets, daily range): BP systolic 97–160; BP diastolic 41–68
[2021-10-11 05:30] LABS: CREATININE 1.79 mg/dL (0.55-1.02)
[2021-10-11 06:31] LABS: BASO # 0.1 10*3/uL (0.0-0.1); BASO % 0.5 % (0.0-1.0); EOS # 0.5 10*3/uL (0.0-0.4); HEMATOCRIT 24.9 % (37.0-47.0); LYMPH # 0.9 10*3/uL (1.3-4.4); LYMPH % 9.9 % (27.0-41.0); MEAN CELL VOLUME 84.7 fl (81.0-99.0); MEAN CORPUSCULAR HGB 27.9 pg (27.0-31.0); MEAN CORPUSCULAR HGB CONC 32.9 g/dl (33.0-37.0); MEAN PLATELET VOLUME 9.4 fl (9.6-12.3); MONO # 0.6 10*3/uL (0.1-1.0); MONO % 6.3 % (3.0-9.0); NEUT # 7.1 10*3/uL (2.3-7.9); NEUT % 77.8 % (47.0-73.0); NUCLEATED RED BLOOD CELL 0.2 % (0.0-0.0); PLATELET COUNT AUTOMATED 152 10*3/uL (130-400); RED BLOOD COUNT 2.94 10*6/uL (4.10-5.10); RED CELL DISTRI WIDTH 16.3 % (0-14.5); WHITE BLOOD COUNT 9.1 10*3/uL (4.8-10.8)
[2021-10-12] VITALS: BP 109/49
[2021-10-12 08:00] VITALS: BP 120/70
[2021-10-12 08:14] LABS: HEMATOCRIT 29.9 % (37.0-47.0); LYMPH # 0.6 10*3/uL (1.3-4.4); LYMPH % 5.4 % (27.0-41.0); MEAN CELL VOLUME 87.7 fl (81.0-99.0); MEAN CORPUSCULAR HGB 27.9 pg (27.0-31.0); MEAN CORPUSCULAR HGB CONC 31.8 g/dl (33.0-37.0); MEAN PLATELET VOLUME 8.9 fl (9.6-12.3); MONO # 0.4 10*3/uL (0.1-1.0); MONO % 4.2 % (3.0-9.0); NEUT # 9.5 10*3/uL (2.3-7.9); NEUT % 89.6 % (47.0-73.0); NUCLEATED RED BLOOD CELL 0.2 % (0.0-0.0); PLATELET COUNT AUTOMATED 177 10*3/uL (130-400); RED BLOOD COUNT 3.41 10*6/uL (4.10-5.10); RED CELL DISTRI WIDTH 16.5 % (0-14.5); WHITE BLOOD COUNT 10.6 10*3/uL (4.8-10.8)
[2021-10-12 08:26] LABS: CREATININE 1.72 mg/dL (0.55-1.02); POTASSIUM 4.1 mmol/L (3.5-5.1)
[2021-10-12 12:00] VITALS: BP 136/73
[2021-10-12 16:00] VITALS: BP 121/66
[2021-10-12 20:00] VITALS: BP 143/59
[2021-10-13] VITALS: BP 106/57
[2021-10-13 08:00] VITALS: BP 127/52
[2021-10-13 12:00] VITALS: BP 110/49
[2021-10-13 13:57] LABS: CREATININE 1.59 mg/dL (0.55-1.02); POTASSIUM 4.2 mmol/L (3.5-5.1)
[2021-10-13 15:50] VITALS: BP 93/47
[2021-10-13 20:00] VITALS: BP 127/56
[2021-10-14] VITALS: BP 112/52
[2021-10-14 04:57] LABS: CREATININE 1.64 mg/dL (0.55-1.02); POTASSIUM 4.6 mmol/L (3.5-5.1)
[2021-10-14 06:22] LABS: BASO # 0.1 10*3/uL (0.0-0.1); BASO % 0.5 % (0.0-1.0); EOS # 0.3 10*3/uL (0.0-0.4); EOS % 2.7 % (1.0-4.0); HEMATOCRIT 27.9 % (37.0-47.0); LYMPH # 1.3 10*3/uL (1.3-4.4); LYMPH % 10.9 % (27.0-41.0); MEAN CELL VOLUME 89.1 fl (81.0-99.0); MEAN CORPUSCULAR HGB 28.1 pg (27.0-31.0); MEAN CORPUSCULAR HGB CONC 31.5 g/dl (33.0-37.0); MEAN PLATELET VOLUME 9.5 fl (9.6-12.3); MONO # 0.8 10*3/uL (0.1-1.0); NEUT # 9.3 10*3/uL (2.3-7.9); NEUT % 78.4 % (47.0-73.0); PLATELET COUNT AUTOMATED 213 10*3/uL (130-400); RED BLOOD COUNT 3.13 10*6/uL (4.10-5.10); RED CELL DISTRI WIDTH 17.2 % (0-14.5); WHITE BLOOD COUNT 11.9 10*3/uL (4.8-10.8)
[2021-10-14 08:00] VITALS: BP 125/69
[2021-10-14] MEDS ORDERED: Humalog SQ (11:04)
[2021-10-14] MEDS ORDERED: ALPRAZOLAM0.25 M2 PO (11:04)
[2021-10-14] MEDS ORDERED: HYDROCODONE-AC1 EAC1 PO (11:14)
[2021-10-14] MEDS ORDERED: IMDUR SA30 MG PO (11:14)
[2021-10-14] MEDS ORDERED: HYDRALAZINE10 MG PO (11:14)
== END 2021-10-14 12:29 | DRG 492 ==
LOC: ED 16:55 → EDHOLD 21:46 → 4E 21:46
PROVIDERS: Emergency Medicine; Internal Medicine; Registered Nurse; ADMIT Internal Medicine; ATTEND Internal Medicine
PROC: 0PSG04Z Reposition Left Humeral Shaft with Internal Fixation Device, Open Approach (ICD-10-PCS; principal; 2021-10-11)
PROC: 3E0T3BZ Introduction of Anesthetic Agent into Peripheral Nerves and Plexi, Percutaneous Approach (ICD-10-PCS; 2021-10-11)
DX: S42.475A Nondisplaced transcondylar fracture of left humerus, initial encounter for closed fracture (principal); N17.0 Acute kidney failure with tubular necrosis; I50.43 Acute on chronic combined systolic (congestive) and diastolic (congestive) heart failure; E87.1 Hypo-osmolality and hyponatremia; N18.4 Chronic kidney disease, stage 4 (severe); D68.9 Coagulation defect, unspecified; M25.062 Hemarthrosis, left knee; I42.9 Cardiomyopathy, unspecified; I13.0 Hypertensive heart and chronic kidney disease with heart failure and stage 1 through stage 4 chronic kidney disease, or unspecified chronic kidney disease; I48.20 Chronic atrial fibrillation, unspecified; N17.9 Acute kidney failure, unspecified; S86.912A Strain of unspecified muscle(s) and tendon(s) at lower leg level, left leg, initial encounter; Z66 Do not resuscitate; K21.9 Gastro-esophageal reflux disease without esophagitis; T45.7X1A Poisoning by anticoagulant antagonists, vitamin K and other coagulants, accidental (unintentional), initial encounter; F41.1 Generalized anxiety disorder; I25.10 Atherosclerotic heart disease of native coronary artery without angina pectoris; E78.5 Hyperlipidemia, unspecified; E11.22 Type 2 diabetes mellitus with diabetic chronic kidney disease; Z20.822 Contact with and (suspected) exposure to COVID-19; G47.33 Obstructive sleep apnea (adult) (pediatric); J44.9 Chronic obstructive pulmonary disease, unspecified; Z90.710 Acquired absence of both cervix and uterus; Z95.5 Presence of coronary angioplasty implant and graft; Z95.1 Presence of aortocoronary bypass graft; Z87.891 Personal history of nicotine dependence; Z80.3 Family history of malignant neoplasm of breast; Z80.0 Family history of malignant neoplasm of digestive organs; Z82.49 Family history of ischemic heart disease and other diseases of the circulatory system; Z79.01 Long term (current) use of anticoagulants; Z86.718 Personal history of other venous thrombosis and embolism; Z86.711 Personal history of pulmonary embolism; I25.2 Old myocardial infarction; W18.39XA Other fall on same level, initial encounter; Y93.89 Activity, other specified; Y92.89 Other specified places as the place of occurrence of the external cause; Y99.8 Other external cause status

== ENCOUNTER → 2021-10-24 | Outpatient (CLI) | payer MEDICARE ==
[~2021-10-24] MED LIST changes: +ALLOPURINOL100 MG PO; +ENTRESTO 24 MG1 EACH PO; +HYDRALAZINE10 MG PO; +HYDROCODONE-AC1 EAC1 PO; +Humalog SQ; +LAMOTRIGINE25 M1 PO; +POTASSIUM CHLO10 MEQ PO; +SYMB160 INH
== END | disposition home or self-care (01) ==
LOC: ORTHO 04:20
PROVIDERS: ATTEND Orthopaedic Surgery
DX: S42.475D Nondisplaced transcondylar fracture of left humerus, subsequent encounter for fracture with routine healing (principal); X58.XXXD Exposure to other specified factors, subsequent encounter

== ENCOUNTER → 2021-11-07 | Outpatient (CLI) | payer MEDICARE | END | disposition home or self-care (01) | LOC: RAD 10:28 | PROVIDERS: ATTEND Orthopaedic Surgery | DX: S89.92XD Unspecified injury of left lower leg, subsequent encounter (principal); M17.12 Unilateral primary osteoarthritis, left knee; I70.292 Other atherosclerosis of native arteries of extremities, left leg; M25.862 Other specified joint disorders, left knee; M25.762 Osteophyte, left knee; X58.XXXD Exposure to other specified factors, subsequent encounter ==

== ENCOUNTER → 2021-11-16 | Outpatient (CLI) | payer MEDICARE | END | disposition home or self-care (01) | LOC: RESCLI 00:35 | PROVIDERS: ATTEND Family Medicine | DX: K21.9 Gastro-esophageal reflux disease without esophagitis (principal); F31.30 Bipolar disorder, current episode depressed, mild or moderate severity, unspecified; F41.9 Anxiety disorder, unspecified; E11.9 Type 2 diabetes mellitus without complications; E03.9 Hypothyroidism, unspecified; I48.0 Paroxysmal atrial fibrillation; I50.9 Heart failure, unspecified; I13.0 Hypertensive heart and chronic kidney disease with heart failure and stage 1 through stage 4 chronic kidney disease, or unspecified chronic kidney disease; J44.9 Chronic obstructive pulmonary disease, unspecified; I25.10 Atherosclerotic heart disease of native coronary artery without angina pectoris; N18.32 Chronic kidney disease, stage 3b; M10.9 Gout, unspecified; G47.00 Insomnia, unspecified; E78.5 Hyperlipidemia, unspecified; Z13.820 Encounter for screening for osteoporosis; Z78.0 Asymptomatic menopausal state; Z79.899 Other long term (current) drug therapy; Z90.710 Acquired absence of both cervix and uterus; Z87.891 Personal history of nicotine dependence ==

== ENCOUNTER → 2021-11-21 | Outpatient (CLI) | payer MEDICARE | END | disposition home or self-care (01) | LOC: ORTHO 01:50 | PROVIDERS: ATTEND Orthopaedic Surgery | DX: S42.475D Nondisplaced transcondylar fracture of left humerus, subsequent encounter for fracture with routine healing (principal); X58.XXXD Exposure to other specified factors, subsequent encounter ==

== ENCOUNTER 2021-12-22 16:20 | Emergency (ER) | payer MEDICARE ==
[~2021-12-22] VITALS: Ht 157.4 cm; Wt 83.9 kg
[2021-12-22 16:25] VITALS: BP 118/45
[2021-12-22 18:07] LABS: BASO % 0.6 % (0.0-1.0); EOS # 0.3 10*3/uL (0.0-0.4); EOS % 4.3 % (1.0-4.0); HEMATOCRIT 36.5 % (37.0-47.0); LYMPH # 0.6 10*3/uL (1.3-4.4); LYMPH % 9.2 % (27.0-41.0); MEAN CELL VOLUME 87.1 fl (81.0-99.0); MEAN CORPUSCULAR HGB CONC 29.9 g/dl (33.0-37.0); MEAN PLATELET VOLUME 9.1 fl (9.6-12.3); MONO # 0.5 10*3/uL (0.1-1.0); MONO % 6.8 % (3.0-9.0); NEUT # 5.3 10*3/uL (2.3-7.9); PLATELET COUNT AUTOMATED 131 10*3/uL (130-400); RED BLOOD COUNT 4.19 10*6/uL (4.10-5.10); RED CELL DISTRI WIDTH 16.6 % (0-14.5); WHITE BLOOD COUNT 6.7 10*3/uL (4.8-10.8)
[2021-12-22 18:25] LABS: CREATININE 1.87 mg/dL (0.55-1.02); POTASSIUM 4.1 mmol/L (3.5-5.1)
[2021-12-22] MEDS ORDERED: BROMFED DM COU118 M2 PO (19:55)
[2021-12-22] MEDS ORDERED: ZITHROMAX250 MG PO (19:55)
== END 2021-12-22 20:13 | disposition home or self-care (01) ==
LOC: ED 16:20
PROVIDERS: Nurse Practitioner Family
DX: J44.9 Chronic obstructive pulmonary disease, unspecified (principal); Z20.822 Contact with and (suspected) exposure to COVID-19; Z79.899 Other long term (current) drug therapy; Z79.82 Long term (current) use of aspirin; Z90.710 Acquired absence of both cervix and uterus; Z90.89 Acquired absence of other organs; Z95.1 Presence of aortocoronary bypass graft; Z98.890 Other specified postprocedural states; Z87.891 Personal history of nicotine dependence

== ENCOUNTER → 2022-01-02 | Outpatient (CLI) | payer MEDICARE ==
[~2022-01-02] MED LIST changes: +BROMFED DM COU118 M2 PO
== END | disposition home or self-care (01) ==
LOC: ORTHO 00:30
PROVIDERS: ATTEND Orthopaedic Surgery
DX: S42.475D Nondisplaced transcondylar fracture of left humerus, subsequent encounter for fracture with routine healing (principal); M19.022 Primary osteoarthritis, left elbow; X58.XXXD Exposure to other specified factors, subsequent encounter

== ENCOUNTER 2022-04-04 16:17 | Inpatient (IN) | payer MEDICARE, OTHER ==
[~2022-04-04] VITALS: Ht 157.5 cm; Wt 85.9 kg
[~2022-04-04 16:17] MED LIST changes: +ENTRESTO 49 MG1 EACH PO; +LEVOFLOXACIN500 MG PO; +PREDNISONE10 MG PO; +PROVENTIL HFA6.7 GM INH
[2022-04-04 21:20] LABS: BASO % 0.7 % (0.0-1.0); EOS % 0.7 % (1.0-4.0); HEMATOCRIT 36.1 % (37.0-47.0); LYMPH # 0.5 10*3/uL (1.3-4.4); LYMPH % 11.1 % (27.0-41.0); MEAN CELL VOLUME 92.3 fl (81.0-99.0); MEAN CORPUSCULAR HGB 28.4 pg (27.0-31.0); MEAN CORPUSCULAR HGB CONC 30.7 g/dl (33.0-37.0); MEAN PLATELET VOLUME 9.7 fl (9.6-12.3); MONO # 0.3 10*3/uL (0.1-1.0); MONO % 7.5 % (3.0-9.0); NEUT # 3.3 10*3/uL (2.3-7.9); NEUT % 78.6 % (47.0-73.0); PLATELET COUNT AUTOMATED 155 10*3/uL (130-400); RED BLOOD COUNT 3.91 10*6/uL (4.10-5.10); RED CELL DISTRI WIDTH 19.2 % (0-14.5); WHITE BLOOD COUNT 4.2 10*3/uL (4.8-10.8)
[2022-04-04 21:39] LABS: ALKALINE PHOSPHATASE 98 U/L (46-116); BUN 31 mg/dl (9-23); CHLORIDE 99 mmol/L (98-107); POTASSIUM 3.6 mmol/L (3.4-5.1); TOTAL PROTEIN 6.5 gm/dL (6.0-8.0)
[2022-04-04 21:43] LABS: SGPT/ALT < 7 U/L (10-49)
[2022-04-05] MEDS ORDERED: HUMALOG100 UNIT/1 SC (00:36)
[2022-04-05] MEDS ORDERED: PROTONIX20 MG PO (00:36)
[2022-04-05] MEDS ORDERED: LANTUS SOL100 UNIT/1 SC (00:36)
[2022-04-05] MEDS ORDERED: SYMB160 INH (00:36)
[2022-04-05] MEDS ORDERED: Synthroid,Levo50 MCG PO (00:37)
[2022-04-05] MEDS ORDERED: ALLOPURINOL100 MG PO (00:37)
[2022-04-05] MEDS ORDERED: ISOSORBIDE MONO10 MG PO (00:38)
[2022-04-05] MEDS ORDERED: TOPROL XL50 M1 PO (00:38)
[2022-04-05] MEDS ORDERED: ASPIRIN CHEWABL81 MG PO (00:39)
[2022-04-05] MEDS ORDERED: FEOSOL325 MG PO (00:39)
[2022-04-05] MEDS ORDERED: ENTRESTO 49 MG1 EACH PO (00:40)
[2022-04-05] MEDS ORDERED: LAMICTAL25 MG PO (00:40)
[2022-04-05] MEDS ORDERED: XARE15TA PO (00:41)
[2022-04-05] MEDS ORDERED: HYDRALAZINE10 MG PO (00:41)
[2022-04-05] MEDS ORDERED: LIPITOR40 MG PO (00:42)
[2022-04-05] MEDS ORDERED: XANAX0.25 MG PO (00:42)
[2022-04-05 04:06] VITALS: BP 133/78
[2022-04-05 06:23] LABS: INTERNATIONAL NORM RATIO 1.3 (2.0-3.5)
[2022-04-05 06:30] LABS: BASO % 0.4 % (0.0-1.0); EOS % 0.8 % (1.0-4.0); HEMATOCRIT 27.4 % (37.0-47.0); LYMPH # 0.3 10*3/uL (1.3-4.4); LYMPH % 11.7 % (27.0-41.0); MEAN CELL VOLUME 89.8 fl (81.0-99.0); MEAN CORPUSCULAR HGB 27.9 pg (27.0-31.0); MEAN PLATELET VOLUME 9.8 fl (9.6-12.3); MONO # 0.3 10*3/uL (0.1-1.0); MONO % 12.5 % (3.0-9.0); NEUT # 1.9 10*3/uL (2.3-7.9); NEUT % 72.7 % (47.0-73.0); PLATELET COUNT AUTOMATED 132 10*3/uL (130-400); RED BLOOD COUNT 3.05 10*6/uL (4.10-5.10); RED CELL DISTRI WIDTH 18.8 % (0-14.5); WHITE BLOOD COUNT 2.7 10*3/uL (4.8-10.8)
[2022-04-05 07:49] LABS: ALKALINE PHOSPHATASE 62 U/L (46-116); BUN 33 mg/dl (9-23); CHLORIDE 111 mmol/L (98-107); POTASSIUM 3.1 mmol/L (3.4-5.1); TOTAL PROTEIN 4.6 gm/dL (6.0-8.0)
[2022-04-05 07:54] LABS: SGPT/ALT < 7 U/L (10-49)
[2022-04-05 08:00] VITALS: BP 106/48
[2022-04-05 16:34] VITALS: BP 101/63
[2022-04-05] MEDS ORDERED: BUMETANIDE2 MG PO (20:03)
[2022-04-06 00:07] VITALS: BP 119/54
[2022-04-06 06:18] LABS: POTASSIUM 4.3 mmol/L (3.4-5.1)
[2022-04-06 06:26] LABS: BASO % 0.3 % (0.0-1.0); EOS % 0.9 % (1.0-4.0); HEMATOCRIT 32.6 % (37.0-47.0); LYMPH # 0.7 10*3/uL (1.3-4.4); LYMPH % 21.2 % (27.0-41.0); MEAN CELL VOLUME 90.6 fl (81.0-99.0); MEAN CORPUSCULAR HGB 27.5 pg (27.0-31.0); MEAN CORPUSCULAR HGB CONC 30.4 g/dl (33.0-37.0); MEAN PLATELET VOLUME 9.8 fl (9.6-12.3); MONO # 0.5 10*3/uL (0.1-1.0); MONO % 15.5 % (3.0-9.0); NEUT % 60.6 % (47.0-73.0); PLATELET COUNT AUTOMATED 146 10*3/uL (130-400); WHITE BLOOD COUNT 3.3 10*3/uL (4.8-10.8)
[2022-04-06 08:00] VITALS: BP 122/62
[2022-04-06 12:00] VITALS: BP 108/50
[2022-04-06 16:00] VITALS: BP 104/40
[2022-04-06 20:00] VITALS: BP 117/49
[2022-04-07] VITALS: BP 107/49
[2022-04-07 07:12] LABS: BASO % 0.3 % (0.0-1.0); EOS # 0.1 10*3/uL (0.0-0.4); EOS % 3.4 % (1.0-4.0); HEMATOCRIT 31.7 % (37.0-47.0); LYMPH # 0.8 10*3/uL (1.3-4.4); LYMPH % 24.1 % (27.0-41.0); MEAN CELL VOLUME 89.5 fl (81.0-99.0); MEAN CORPUSCULAR HGB 27.4 pg (27.0-31.0); MEAN CORPUSCULAR HGB CONC 30.6 g/dl (33.0-37.0); MEAN PLATELET VOLUME 10.1 fl (9.6-12.3); MONO # 0.3 10*3/uL (0.1-1.0); MONO % 9.3 % (3.0-9.0); NEUT % 62.3 % (47.0-73.0); PLATELET COUNT AUTOMATED 155 10*3/uL (130-400); RED BLOOD COUNT 3.54 10*6/uL (4.10-5.10); RED CELL DISTRI WIDTH 18.5 % (0-14.5); WHITE BLOOD COUNT 3.2 10*3/uL (4.8-10.8)
[2022-04-07 08:00] VITALS: BP 100/42
[2022-04-07 08:20] LABS: ALKALINE PHOSPHATASE 70 U/L (46-116); BUN 32 mg/dl (9-23); CHLORIDE 103 mmol/L (98-107); POTASSIUM 4.1 mmol/L (3.4-5.1); TOTAL PROTEIN 5.4 gm/dL (6.0-8.0)
[2022-04-07 08:32] LABS: SGPT/ALT < 7 U/L (10-49)
[2022-04-07 12:00] VITALS: BP 99/64
[2022-04-07 16:00] VITALS: BP 103/42
[2022-04-07 20:00] VITALS: BP 117/57
[2022-04-08] VITALS: BP 113/54
[2022-04-08 08:00] VITALS: BP 103/42
[2022-04-08 12:00] VITALS: BP 104/49
[2022-04-08 16:00] VITALS: BP 110/37
[2022-04-08 20:00] VITALS: BP 122/60
[2022-04-09] VITALS: BP 116/51
[2022-04-09 05:31] LABS: ALKALINE PHOSPHATASE 80 U/L (46-116); BUN 28 mg/dl (9-23); CHLORIDE 101 mmol/L (98-107); POTASSIUM 3.9 mmol/L (3.4-5.1)
[2022-04-09 06:14] LABS: BASO % 0.5 % (0.0-1.0); EOS # 0.1 10*3/uL (0.0-0.4); EOS % 1.9 % (1.0-4.0); LYMPH # 0.7 10*3/uL (1.3-4.4); LYMPH % 20.3 % (27.0-41.0); MEAN PLATELET VOLUME 10.3 fl (9.6-12.3); MONO # 0.3 10*3/uL (0.1-1.0); MONO % 8.2 % (3.0-9.0); NEUT # 2.5 10*3/uL (2.3-7.9); PLATELET COUNT AUTOMATED 146 10*3/uL (130-400); RED BLOOD COUNT 3.89 10*6/uL (4.10-5.10); RED CELL DISTRI WIDTH 18.3 % (0-14.5); WHITE BLOOD COUNT 3.6 10*3/uL (4.8-10.8)
[2022-04-09 06:30] LABS: SGPT/ALT < 7 U/L (10-49)
[2022-04-09 08:00] VITALS: BP 98/47
[2022-04-09 12:00] VITALS: BP 117/51
[2022-04-09 16:00] VITALS: BP 97/42
[2022-04-09 20:00] VITALS: BP 132/64
[2022-04-09] MEDS ORDERED: AUGMENTIN 500500 M1 PO (23:40)
[2022-04-09] MEDS ORDERED: DALVANCE500 MG IV (23:40)
[2022-04-10] VITALS: BP 115/56
[2022-04-10 07:29] LABS: BASO % 0.6 % (0.0-1.0); EOS % 0.9 % (1.0-4.0); HEMATOCRIT 31.3 % (37.0-47.0); LYMPH # 0.6 10*3/uL (1.3-4.4); LYMPH % 16.7 % (27.0-41.0); MEAN CELL VOLUME 90.7 fl (81.0-99.0); MEAN CORPUSCULAR HGB 27.5 pg (27.0-31.0); MEAN CORPUSCULAR HGB CONC 30.4 g/dl (33.0-37.0); MEAN PLATELET VOLUME 9.8 fl (9.6-12.3); MONO # 0.3 10*3/uL (0.1-1.0); NEUT # 2.4 10*3/uL (2.3-7.9); NEUT % 70.3 % (47.0-73.0); PLATELET COUNT AUTOMATED 124 10*3/uL (130-400); RED BLOOD COUNT 3.45 10*6/uL (4.10-5.10); RED CELL DISTRI WIDTH 18.4 % (0-14.5); WHITE BLOOD COUNT 3.4 10*3/uL (4.8-10.8)
[2022-04-10 07:47] LABS: POTASSIUM 3.4 mmol/L (3.4-5.1)
[2022-04-10 08:00] VITALS: BP 113/40
[2022-04-10 12:00] VITALS: BP 129/53
[2022-04-10 16:00] VITALS: BP 117/59
[2022-04-10 20:00] VITALS: BP 121/54
[2022-04-11] VITALS: BP 111/46
[2022-04-11 06:44] LABS: BASO % 0.3 % (0.0-1.0); EOS % 0.6 % (1.0-4.0); HEMATOCRIT 29.7 % (37.0-47.0); LYMPH # 0.5 10*3/uL (1.3-4.4); LYMPH % 14.9 % (27.0-41.0); MEAN CELL VOLUME 88.9 fl (81.0-99.0); MEAN CORPUSCULAR HGB 28.1 pg (27.0-31.0); MEAN CORPUSCULAR HGB CONC 31.6 g/dl (33.0-37.0); MEAN PLATELET VOLUME 9.8 fl (9.6-12.3); MONO # 0.2 10*3/uL (0.1-1.0); MONO % 5.8 % (3.0-9.0); NEUT # 2.7 10*3/uL (2.3-7.9); NEUT % 77.5 % (47.0-73.0); PLATELET COUNT AUTOMATED 125 10*3/uL (130-400); RED BLOOD COUNT 3.34 10*6/uL (4.10-5.10); RED CELL DISTRI WIDTH 18.4 % (0-14.5); WHITE BLOOD COUNT 3.4 10*3/uL (4.8-10.8)
[2022-04-11 06:56] LABS: POTASSIUM 3.6 mmol/L (3.4-5.1)
[2022-04-11 08:00] VITALS: BP 105/65
[2022-04-11 12:00] VITALS: BP 120/36
[2022-04-11 16:41] VITALS: BP 108/46
[2022-04-11 20:00] VITALS: BP 137/55
[2022-04-12] VITALS: BP 130/60
[2022-04-12 06:23] LABS: POTASSIUM 3.5 mmol/L (3.4-5.1)
[2022-04-12 07:07] LABS: BASO % 0.4 % (0.0-1.0); EOS % 0.2 % (1.0-4.0); HEMATOCRIT 29.6 % (37.0-47.0); LYMPH # 0.5 10*3/uL (1.3-4.4); LYMPH % 11.8 % (27.0-41.0); MEAN CELL VOLUME 88.6 fl (81.0-99.0); MEAN CORPUSCULAR HGB 28.1 pg (27.0-31.0); MEAN CORPUSCULAR HGB CONC 31.8 g/dl (33.0-37.0); MEAN PLATELET VOLUME 10.4 fl (9.6-12.3); MONO # 0.3 10*3/uL (0.1-1.0); MONO % 7.4 % (3.0-9.0); NEUT # 3.6 10*3/uL (2.3-7.9); NEUT % 79.3 % (47.0-73.0); RED BLOOD COUNT 3.34 10*6/uL (4.10-5.10); RED CELL DISTRI WIDTH 17.9 % (0-14.5); WHITE BLOOD COUNT 4.5 10*3/uL (4.8-10.8)
[2022-04-12 07:09] LABS: PLATELET COUNT AUTOMATED 161 10*3/uL (130-400)
[2022-04-12 08:00] VITALS: BP 120/58
[2022-04-12 11:52] VITALS: BP 106/50
[2022-04-12 16:00] VITALS: BP 126/45
== END 2022-04-12 15:45 | disposition home or self-care (01) | DRG 579 ==
LOC: ED 16:17 → EDHOLD 22:13 → 4E 22:13
PROVIDERS: Family Medicine; Internal Medicine; Student in an Organized Health Care Education/Training Program; ADMIT Internal Medicine; ATTEND Internal Medicine
PROC: 0QBQ0ZX Excision of Right Toe Phalanx, Open Approach, Diagnostic (ICD-10-PCS; principal; 2022-04-07)
PROC: 02HV33Z Insertion of Infusion Device into Superior Vena Cava, Percutaneous Approach (ICD-10-PCS; 2022-04-08)
PROC: B548ZZA Ultrasonography of Superior Vena Cava, Guidance (ICD-10-PCS; 2022-04-08)
DX: L97.519 Non-pressure chronic ulcer of other part of right foot with unspecified severity (principal); N17.0 Acute kidney failure with tubular necrosis; E87.1 Hypo-osmolality and hyponatremia; I48.20 Chronic atrial fibrillation, unspecified; M86.8X7 Other osteomyelitis, ankle and foot; N18.4 Chronic kidney disease, stage 4 (severe); E11.69 Type 2 diabetes mellitus with other specified complication; D64.9 Anemia, unspecified; E11.22 Type 2 diabetes mellitus with diabetic chronic kidney disease; E11.65 Type 2 diabetes mellitus with hyperglycemia; I25.10 Atherosclerotic heart disease of native coronary artery without angina pectoris; E78.5 Hyperlipidemia, unspecified; F41.1 Generalized anxiety disorder; K21.9 Gastro-esophageal reflux disease without esophagitis; F32.9 Major depressive disorder, single episode, unspecified; G47.33 Obstructive sleep apnea (adult) (pediatric); I25.5 Ischemic cardiomyopathy; D72.819 Decreased white blood cell count, unspecified; I12.9 Hypertensive chronic kidney disease with stage 1 through stage 4 chronic kidney disease, or unspecified chronic kidney disease; E11.42 Type 2 diabetes mellitus with diabetic polyneuropathy; S91.301A Unspecified open wound, right foot, initial encounter; Z90.710 Acquired absence of both cervix and uterus; X58.XXXA Exposure to other specified factors, initial encounter; Y93.89 Activity, other specified; Y92.89 Other specified places as the place of occurrence of the external cause; Y99.8 Other external cause status; Z95.5 Presence of coronary angioplasty implant and graft; Z95.1 Presence of aortocoronary bypass graft; Z86.711 Personal history of pulmonary embolism; Z87.891 Personal history of nicotine dependence; Z80.0 Family history of malignant neoplasm of digestive organs; Z80.3 Family history of malignant neoplasm of breast; Z82.49 Family history of ischemic heart disease and other diseases of the circulatory system; I25.2 Old myocardial infarction; Z79.4 Long term (current) use of insulin

== ENCOUNTER → 2022-06-08 | Outpatient (CLI) | payer OTHER ==
[~2022-06-08] MED LIST changes: +ASPIRIN CHEWABL81 MG PO; +AUGMENTIN 500500 M1 PO; +DALVANCE500 MG IV; +FEOSOL325 MG PO; +HUMALOG100 UNIT/1 SC; +ISOSORBIDE MONO10 MG PO; +LAMICTAL25 MG PO; +LIPITOR40 MG PO; +PROTONIX20 MG PO; +Synthroid,Levo50 MCG PO; +XANAX0.25 MG PO
== END | disposition home or self-care (01) ==
LOC: RAD 00:18
PROVIDERS: ATTEND Family Medicine
DX: J18.9 Pneumonia, unspecified organism (principal)

== ENCOUNTER → 2022-06-29 | Outpatient (CLI) | payer OTHER ==
[2022-06-29 16:05] LABS: BASO # 0.1 10*3/uL (0.0-0.1); BASO % 1.4 % (0.0-1.0); HEMATOCRIT 39.4 % (37.0-47.0); LYMPH # 1.1 10*3/uL (1.3-4.4); LYMPH % 16.1 % (27.0-41.0); MEAN CELL VOLUME 90.8 fl (81.0-99.0); MEAN CORPUSCULAR HGB 28.6 pg (27.0-31.0); MEAN CORPUSCULAR HGB CONC 31.5 g/dl (33.0-37.0); MEAN PLATELET VOLUME 10.2 fl (9.6-12.3); MONO # 0.4 10*3/uL (0.1-1.0); MONO % 6.3 % (3.0-9.0); NEUT % 75.6 % (47.0-73.0); PLATELET COUNT AUTOMATED 176 10*3/uL (130-400); RED BLOOD COUNT 4.34 10*6/uL (4.10-5.10); RED CELL DISTRI WIDTH 16.7 % (0-14.5); WHITE BLOOD COUNT 6.7 10*3/uL (4.8-10.8)
[2022-06-29 16:19] LABS: BILIRUBIN Negative (Negative); BLOOD Negative (Negative); CLARITY Clear (Clear); COLOR Yellow (Yellow); GLUCOSE Negative (Negative); KETONE Negative (Negative); LEUKO ESTERASE Negative (Negative); NITRITE Negative (Negative); SPECIFIC GRAVITY <= 1.005 (1.001-1.030); UROBILINOGEN 0.2 E.U./dl (0.0-1.0)
[2022-06-29 16:25] LABS: URINE CREATININE RANDOM 19.52 mg/dL
[2022-06-29 16:57] LABS: POTASSIUM 3.9 mmol/L (3.4-5.1)
[2022-06-29 17:00] LABS: VITAMIN D, 25-HYDROXY 34.1 ng/mL (30-100)
[2022-06-29 17:29] LABS: BACTERIA 1+; WBC 0-2 wbc/hpf (0-5)
== END | disposition home or self-care (01) ==
LOC: LAB 15:33
PROVIDERS: ATTEND Internal Medicine Nephrology
DX: N18.4 Chronic kidney disease, stage 4 (severe) (principal); N25.81 Secondary hyperparathyroidism of renal origin

== ENCOUNTER → 2022-07-26 | Outpatient (CLI) | payer OTHER | END | disposition home or self-care (01) | LOC: MAMMO 11:30 | PROVIDERS: ATTEND Physician Assistant | DX: Z12.31 Encounter for screening mammogram for malignant neoplasm of breast (principal) ==

== ENCOUNTER → 2022-11-22 | Outpatient (CLI) | payer OTHER | END | disposition home or self-care (01) | LOC: LAB 15:41 | PROVIDERS: ATTEND Internal Medicine | DX: I48.11 Longstanding persistent atrial fibrillation (principal); I50.9 Heart failure, unspecified ==

== ENCOUNTER → 2023-05-11 | Outpatient (CLI) | payer OTHER ==
[2023-05-11 11:52] LABS: BASO # 0.1 10*3/uL (0.0-0.1); BASO % 0.7 % (0.0-1.0); EOS % 0.3 % (1.0-4.0); HEMATOCRIT 42.7 % (37.0-47.0); LYMPH # 1.2 10*3/uL (1.3-4.4); LYMPH % 10.1 % (27.0-41.0); MEAN CELL VOLUME 93.2 fl (81.0-99.0); MEAN CORPUSCULAR HGB 29.3 pg (27.0-31.0); MEAN CORPUSCULAR HGB CONC 31.4 g/dl (33.0-37.0); MEAN PLATELET VOLUME 9.3 fl (9.6-12.3); MONO # 0.8 10*3/uL (0.1-1.0); MONO % 6.4 % (3.0-9.0); NEUT # 9.6 10*3/uL (2.3-7.9); NEUT % 82.1 % (47.0-73.0); PLATELET COUNT AUTOMATED 143 10*3/uL (130-400); RED BLOOD COUNT 4.58 10*6/uL (4.10-5.10); RED CELL DISTRI WIDTH 18.4 % (0-14.5); WHITE BLOOD COUNT 11.7 10*3/uL (4.8-10.8)
[2023-05-11 12:01] LABS: URINE CREATININE RANDOM 52.86 mg/dL
[2023-05-11 12:06] LABS: BILIRUBIN Negative (Negative); BLOOD Negative (Negative); CLARITY Clear (Clear); COLOR Yellow (Yellow); GLUCOSE Negative (Negative); KETONE Negative (Negative); LEUKO ESTERASE Negative (Negative); NITRITE Negative (Negative); UROBILINOGEN 0.2 E.U./dl (0.0-1.0)
[2023-05-11 12:15] LABS: BACTERIA 1+
[2023-05-11 12:24] LABS: POTASSIUM 3.8 mmol/L (3.4-5.1)
[2023-05-11 12:25] LABS: POTASSIUM 3.8 mmol/L (3.4-5.1)
[2023-05-11 12:28] LABS: VITAMIN D, 25-HYDROXY 25.6 ng/mL (30-100)
== END | disposition home or self-care (01) ==
LOC: LAB 11:08
PROVIDERS: Internal Medicine; ATTEND Internal Medicine Nephrology
DX: I13.0 Hypertensive heart and chronic kidney disease with heart failure and stage 1 through stage 4 chronic kidney disease, or unspecified chronic kidney disease (principal); N18.4 Chronic kidney disease, stage 4 (severe); I50.42 Chronic combined systolic (congestive) and diastolic (congestive) heart failure; N25.81 Secondary hyperparathyroidism of renal origin; N17.9 Acute kidney failure, unspecified; D63.1 Anemia in chronic kidney disease

== ENCOUNTER → 2023-05-15 | Outpatient (CLI) | payer OTHER | END | disposition home or self-care (01) | LOC: RAD 14:55 | PROVIDERS: ATTEND Internal Medicine | DX: J44.9 Chronic obstructive pulmonary disease, unspecified (principal); R05.1 Acute cough; I51.7 Cardiomegaly; Z95.1 Presence of aortocoronary bypass graft; Z95.5 Presence of coronary angioplasty implant and graft ==

== ENCOUNTER → 2023-07-27 | Outpatient (CLI) | payer OTHER ==
[~2023-07-27] MED LIST changes: +ANTIVERT25 M2 PO; +BREZTRI AEROS10.7 GM IH; +METOPROLOL SUCC50 M1 PO; +ZYRTEC10 M2 PO
[2023-07-27 14:03] LABS: BASO # 0.1 10*3/uL (0.0-0.1); EOS % 0.4 % (1.0-4.0); HEMATOCRIT 36.8 % (37.0-47.0); LYMPH # 1.3 10*3/uL (1.3-4.4); LYMPH % 18.9 % (27.0-41.0); MEAN CELL VOLUME 100.3 fl (81.0-99.0); MEAN CORPUSCULAR HGB 30.5 pg (27.0-31.0); MEAN CORPUSCULAR HGB CONC 30.4 g/dl (33.0-37.0); MEAN PLATELET VOLUME 9.2 fl (9.6-12.3); MONO # 0.4 10*3/uL (0.1-1.0); MONO % 5.2 % (3.0-9.0); NEUT % 73.9 % (47.0-73.0); PLATELET COUNT AUTOMATED 188 10*3/uL (130-400); RED BLOOD COUNT 3.67 10*6/uL (4.10-5.10); RED CELL DISTRI WIDTH 18.5 % (0-14.5); WHITE BLOOD COUNT 6.8 10*3/uL (4.8-10.8)
[2023-07-27 14:31] LABS: BILIRUBIN Negative (Negative); BLOOD Negative (Negative); CLARITY Clear (Clear); COLOR Yellow (Yellow); GLUCOSE Negative (Negative); KETONE Negative (Negative); LEUKO ESTERASE Negative (Negative); NITRITE Negative (Negative); PH 5.5 (4.5-8.0); UROBILINOGEN 0.2 E.U./dl (0.0-1.0)
[2023-07-27 14:37] LABS: URINE CREATININE RANDOM 58.24 mg/dL
[2023-07-27 14:40] LABS: POTASSIUM 4.1 mmol/L (3.4-5.1)
[2023-07-27 14:43] LABS: BACTERIA 1+; EPITHELIAL CELLS TNTC; RBC 0-2 rbc/hpf (0-2); WBC 0-2 wbc/hpf (0-5); YEAST TRACE
[2023-07-27 14:44] LABS: VITAMIN D, 25-HYDROXY 37.4 ng/mL (30-100)
== END | disposition home or self-care (01) ==
LOC: LAB 13:45
PROVIDERS: ATTEND Internal Medicine Nephrology
DX: N18.4 Chronic kidney disease, stage 4 (severe) (principal); N25.81 Secondary hyperparathyroidism of renal origin; D63.1 Anemia in chronic kidney disease

== ENCOUNTER → 2023-11-02 | Outpatient (CLI) | payer OTHER | END | disposition home or self-care (01) | LOC: ORTHO 01:41 | PROVIDERS: ATTEND Orthopaedic Surgery | DX: M17.11 Unilateral primary osteoarthritis, right knee (principal) ==

== ENCOUNTER → 2023-12-21 | Outpatient (CLI) | payer OTHER | END | disposition home or self-care (01) | LOC: MRI 01:53 | PROVIDERS: ATTEND Orthopaedic Surgery | DX: M86.151 Other acute osteomyelitis, right femur (principal); M86.9 Osteomyelitis, unspecified; L03.115 Cellulitis of right lower limb; D49.2 Neoplasm of unspecified behavior of bone, soft tissue, and skin ==

== ENCOUNTER → 2024-01-01 | Outpatient (CLI) | payer OTHER | END | disposition home or self-care (01) | LOC: US 00:37 | PROVIDERS: ATTEND Orthopaedic Surgery | DX: M79.89 Other specified soft tissue disorders (principal); D48.19 Other specified neoplasm of uncertain behavior of connective and other soft tissue ==

== ENCOUNTER 2024-01-08 07:41 | Inpatient (IN) | payer OTHER ==
[~2024-01-08] VITALS: Ht 157.5 cm; Wt 91.6 kg
[2024-01-08 07:53] VITALS: BP 105/64
[2024-01-08 08:59] LABS: BASO # 0.1 10*3/uL (0.0-0.1); BASO % 0.6 % (0.0-1.0); HEMATOCRIT 35.4 % (37.0-47.0); LYMPH # 0.8 10*3/uL (1.3-4.4); LYMPH % 9.2 % (27.0-41.0); MEAN CELL VOLUME 93.7 fl (81.0-99.0); MEAN CORPUSCULAR HGB 30.4 pg (27.0-31.0); MEAN CORPUSCULAR HGB CONC 32.5 g/dl (33.0-37.0); MEAN PLATELET VOLUME 9.5 fl (9.6-12.3); MONO # 0.5 10*3/uL (0.1-1.0); MONO % 6.2 % (3.0-9.0); NEUT # 7.2 10*3/uL (2.3-7.9); NEUT % 83.7 % (47.0-73.0); PLATELET COUNT AUTOMATED 127 10*3/uL (130-400); RED BLOOD COUNT 3.78 10*6/uL (4.10-5.10); RED CELL DISTRI WIDTH 18.6 % (0-14.5); WHITE BLOOD COUNT 8.6 10*3/uL (4.8-10.8)
[2024-01-08 09:11] LABS: ACT PARTIAL THROMBO TIME 33.9 SECONDS (20.0-32.1)
[2024-01-08 09:19] LABS: ALKALINE PHOSPHATASE 79 U/L (46-116); BUN 40 mg/dl (9-23); CHLORIDE 100 mmol/L (98-107); POTASSIUM 4.1 mmol/L (3.4-5.1); TOTAL PROTEIN 6.3 gm/dL (6.0-8.0)
[2024-01-08 09:37] LABS: SGPT/ALT < 7 U/L (5-49)
[2024-01-08] MEDS ORDERED: ACETAMINOPHEN 325 MG TAB PO PRN (11:25)
[2024-01-08] MEDS ORDERED: BISACODYL 5 MG TAB PO PRN (11:25)
[2024-01-08] MEDS ORDERED: DEXTROSE 10 % IN WATER 250 ML IV PRN (11:25)
[2024-01-08] MEDS ORDERED: INSULIN LISPRO 1 UNIT/0.01 ML SQ SCH (11:30)
[2024-01-08] MEDS ORDERED: FUROSEMIDE 40 MG/4 ML VIAL IV SCH (11:35)
[2024-01-08] MEDS ORDERED: BENZONATATE 100 MG CAP PO PRN (11:40)
[2024-01-08] MEDS ORDERED: Albuterol Sulf/Ipratropium 3 ML VIAL NEB SCH (13:55)
[2024-01-08] MEDS ORDERED: methylPREDNISolone sod succ 40 MG VIAL IV SCH (13:59)
[2024-01-08] MEDS ORDERED: AZITHROMYCIN 250 ML IV SCH (14:00)
[2024-01-08] MEDS ORDERED: Ceftriaxone Sodium 10 ML IV SCH (15:00)
[2024-01-08] MEDS ORDERED: RIVAROXABAN 15 MG TAB PO SCH (18:00)
[2024-01-08 18:40] VITALS: BP 130/51
[2024-01-08] MEDS ORDERED: IMDUR SA30 MG PO (18:59)
[2024-01-08] MEDS ORDERED: hydrALAZINE hydrochloride 10 MG TAB PO SCH (22:00)
[2024-01-08] MEDS ORDERED: ALPRAZolam 0.5 MG TAB PO SCH (22:00)
[2024-01-08] MEDS ORDERED: SACUBITRIL/VALSARTAN 49 MG-51 MG TABLET PO SCH (22:00)
[2024-01-08] MEDS ORDERED: GUAIFENESIN 600 MG TAB ER PO SCH (22:00)
[2024-01-08] MEDS ORDERED: METOPROLOL SUCCINATE XR 50 MG TAB PO SCH (22:00)
[2024-01-09] VITALS: BP 125/59
[2024-01-09] MEDS ORDERED: Levothyroxine Sodium 50 MCG TAB PO SCH (06:00)
[2024-01-09 06:34] LABS: BASO % 0.2 % (0.0-1.0); HEMATOCRIT 34.8 % (37.0-47.0); LYMPH # 0.4 10*3/uL (1.3-4.4); LYMPH % 8.2 % (27.0-41.0); MEAN CELL VOLUME 94.3 fl (81.0-99.0); MEAN CORPUSCULAR HGB 30.1 pg (27.0-31.0); MEAN CORPUSCULAR HGB CONC 31.9 g/dl (33.0-37.0); MEAN PLATELET VOLUME 10.4 fl (9.6-12.3); MONO # 0.1 10*3/uL (0.1-1.0); MONO % 1.5 % (3.0-9.0); NEUT # 4.7 10*3/uL (2.3-7.9); NEUT % 89.5 % (47.0-73.0); PLATELET COUNT AUTOMATED 105 10*3/uL (130-400); RED BLOOD COUNT 3.69 10*6/uL (4.10-5.10); RED CELL DISTRI WIDTH 18.3 % (0-14.5); WHITE BLOOD COUNT 5.2 10*3/uL (4.8-10.8)
[2024-01-09 07:19] LABS: ALKALINE PHOSPHATASE 74 U/L (46-116); BUN 45 mg/dl (9-23); CHLORIDE 98 mmol/L (98-107); POTASSIUM 4.7 mmol/L (3.4-5.1); TOTAL PROTEIN 6.2 gm/dL (6.0-8.0)
[2024-01-09 07:30] LABS: SGPT/ALT < 7 U/L (5-49)
[2024-01-09 08:00] VITALS: BP 120/54
[2024-01-09] MEDS ORDERED: BENZONATATE 100 MG CAP PO PRN (08:22)
[2024-01-09] MEDS ORDERED: ALPRAZolam 0.5 MG TAB PO PRN (09:29)
[2024-01-09] MEDS ORDERED: DEXTROSE 10 % IN WATER 250 ML IV PRN (09:50)
[2024-01-09] MEDS ORDERED: ATORVASTATIN CALCIUM 40 MG TABLET PO SCH (10:00)
[2024-01-09] MEDS ORDERED: GUAIFENESIN 600 MG TAB ER PO SCH (10:00)
[2024-01-09] MEDS ORDERED: ASPIRIN, CHEWABLE 81 MG TAB PO SCH (10:00)
[2024-01-09] MEDS ORDERED: INSULIN LISPRO 1 UNIT/0.01 ML SQ SCH (11:30)
[2024-01-09 12:00] VITALS: BP 106/48
[2024-01-09 16:00] VITALS: BP 103/43
[2024-01-09] MEDS ORDERED: BUMETANIDE 1 MG/4 ML VIAL IV SCH (18:00)
[2024-01-09 20:00] VITALS: BP 142/61
[2024-01-09] MEDS ORDERED: Insulin Glargine, Recombinan 1 UNIT/0.01 ML SC SCH ×2 (22:00)
[2024-01-09] MEDS ORDERED: methylPREDNISolone sod succ 40 MG VIAL IV SCH (22:00)
[2024-01-10 06:00] LABS: POTASSIUM 4.4 mmol/L (3.4-5.1)
[2024-01-10 06:43] LABS: BASO % 0.1 % (0.0-1.0); HEMATOCRIT 32.4 % (37.0-47.0); LYMPH # 0.7 10*3/uL (1.3-4.4); MEAN CELL VOLUME 92.6 fl (81.0-99.0); MEAN CORPUSCULAR HGB 30.6 pg (27.0-31.0); MEAN PLATELET VOLUME 10.2 fl (9.6-12.3); MONO # 0.3 10*3/uL (0.1-1.0); MONO % 2.8 % (3.0-9.0); NEUT # 8.5 10*3/uL (2.3-7.9); NEUT % 89.6 % (47.0-73.0); PLATELET COUNT AUTOMATED 128 10*3/uL (130-400); WHITE BLOOD COUNT 9.4 10*3/uL (4.8-10.8)
[2024-01-10 08:00] VITALS: BP 105/66
[2024-01-10] MEDS ORDERED: FERROUS SULFATE 325 MG TAB PO SCH (10:00)
[2024-01-11] VITALS: BP 126/67
[2024-01-11 04:49] LABS: POTASSIUM 4.3 mmol/L (3.4-5.1)
[2024-01-11 06:14] LABS: BASO % 0.1 % (0.0-1.0); LYMPH # 0.6 10*3/uL (1.3-4.4); LYMPH % 7.3 % (27.0-41.0); MEAN CELL VOLUME 91.4 fl (81.0-99.0); MEAN CORPUSCULAR HGB 30.7 pg (27.0-31.0); MEAN CORPUSCULAR HGB CONC 33.6 g/dl (33.0-37.0); MEAN PLATELET VOLUME 10.4 fl (9.6-12.3); MONO # 0.2 10*3/uL (0.1-1.0); MONO % 2.9 % (3.0-9.0); NEUT # 7.3 10*3/uL (2.3-7.9); NEUT % 89.1 % (47.0-73.0); PLATELET COUNT AUTOMATED 154 10*3/uL (130-400); RED BLOOD COUNT 3.61 10*6/uL (4.10-5.10); WHITE BLOOD COUNT 8.2 10*3/uL (4.8-10.8)
[2024-01-11 07:47] VITALS: BP 137/62
[2024-01-11 11:14] VITALS: BP 133/69
[2024-01-11] MEDS ORDERED: VIBRA-TAB100 MG PO (14:40)
== END 2024-01-11 16:49 | disposition home or self-care (01) | DRG 291 ==
LOC: ED 07:41 → EDHOLD 09:46 → ICCU 09:46
PROVIDERS: Emergency Medicine; Student in an Organized Health Care Education/Training Program; ADMIT Internal Medicine; ATTEND Internal Medicine
DX: I13.0 Hypertensive heart and chronic kidney disease with heart failure and stage 1 through stage 4 chronic kidney disease, or unspecified chronic kidney disease (principal); I50.43 Acute on chronic combined systolic (congestive) and diastolic (congestive) heart failure; J96.01 Acute respiratory failure with hypoxia; N17.0 Acute kidney failure with tubular necrosis; N18.4 Chronic kidney disease, stage 4 (severe); J44.1 Chronic obstructive pulmonary disease with (acute) exacerbation; J91.8 Pleural effusion in other conditions classified elsewhere; I48.20 Chronic atrial fibrillation, unspecified; I48.21 Permanent atrial fibrillation; E87.1 Hypo-osmolality and hyponatremia; E11.9 Type 2 diabetes mellitus without complications; F31.9 Bipolar disorder, unspecified; D69.6 Thrombocytopenia, unspecified; E11.65 Type 2 diabetes mellitus with hyperglycemia; D50.9 Iron deficiency anemia, unspecified; Z66 Do not resuscitate; I27.20 Pulmonary hypertension, unspecified; K21.9 Gastro-esophageal reflux disease without esophagitis; I07.1 Rheumatic tricuspid insufficiency; E78.5 Hyperlipidemia, unspecified; I25.5 Ischemic cardiomyopathy; G47.33 Obstructive sleep apnea (adult) (pediatric); E11.22 Type 2 diabetes mellitus with diabetic chronic kidney disease; I25.10 Atherosclerotic heart disease of native coronary artery without angina pectoris; F41.1 Generalized anxiety disorder; I25.2 Old myocardial infarction; Z86.711 Personal history of pulmonary embolism; Z90.710 Acquired absence of both cervix and uterus; Z95.1 Presence of aortocoronary bypass graft; Z79.899 Other long term (current) drug therapy; Z79.01 Long term (current) use of anticoagulants; Z79.2 Long term (current) use of antibiotics; Z79.4 Long term (current) use of insulin; Z87.891 Personal history of nicotine dependence; Z82.49 Family history of ischemic heart disease and other diseases of the circulatory system; Z80.8 Family history of malignant neoplasm of other organs or systems; Z83.3 Family history of diabetes mellitus

== ENCOUNTER → 2024-01-19 | Outpatient (CLI) | payer OTHER ==
[~2024-01-19] MED LIST changes: +VIBRA-TAB100 MG PO
[2024-01-19 10:45] LABS: BASO % 0.2 % (0.0-1.0); EOS % 0.1 % (1.0-4.0); HEMATOCRIT 38.7 % (37.0-47.0); LYMPH % 11.4 % (27.0-41.0); MEAN CELL VOLUME 95.8 fl (81.0-99.0); MEAN CORPUSCULAR HGB 30.2 pg (27.0-31.0); MEAN CORPUSCULAR HGB CONC 31.5 g/dl (33.0-37.0); MEAN PLATELET VOLUME 9.8 fl (9.6-12.3); MONO # 0.4 10*3/uL (0.1-1.0); MONO % 4.3 % (3.0-9.0); NEUT # 7.5 10*3/uL (2.3-7.9); PLATELET COUNT AUTOMATED 190 10*3/uL (130-400); RED BLOOD COUNT 4.04 10*6/uL (4.10-5.10); RED CELL DISTRI WIDTH 17.9 % (0-14.5)
[2024-01-19 10:46] LABS: BILIRUBIN Negative (Negative); BLOOD Negative (Negative); CLARITY Cloudy (Clear); COLOR Yellow (Yellow); GLUCOSE 3+ (Negative); KETONE Negative (Negative); LEUKO ESTERASE Negative (Negative); NITRITE Negative (Negative); PH 5.5 (4.5-8.0); SPECIFIC GRAVITY 1.015 (1.001-1.030); UROBILINOGEN 0.2 E.U./dl (0.0-1.0)
[2024-01-19 10:52] LABS: URINE CREATININE RANDOM 48.35 mg/dL
[2024-01-19 10:54] LABS: EPITHELIAL CELLS TNTC
[2024-01-19 10:55] LABS: BACTERIA 3+; YEAST TRACE
[2024-01-19 11:33] LABS: POTASSIUM 4.2 mmol/L (3.4-5.1)
[2024-01-19 11:52] LABS: VITAMIN D, 25-HYDROXY 32.3 ng/mL (30-100)
== END | disposition home or self-care (01) ==
LOC: LAB 10:22
PROVIDERS: ATTEND Internal Medicine Nephrology
DX: N25.81 Secondary hyperparathyroidism of renal origin (principal); N18.4 Chronic kidney disease, stage 4 (severe); D63.1 Anemia in chronic kidney disease

== ENCOUNTER 2024-02-17 21:10 | Inpatient (IN) | payer OTHER ==
[~2024-02-17] VITALS: Ht 167.6 cm; Wt 96.2 kg
[2024-02-17 21:27] VITALS: BP 128/58
[2024-02-17] MEDS ORDERED: PROTONIX40 MG PO (21:35)
[2024-02-17] MEDS ORDERED: Albuterol Sulf/Ipratropium 3 ML VIAL NEB ONE (21:40)
[2024-02-17 22:08] LABS: BASO # 0.1 10*3/uL (0.0-0.1); BASO % 0.7 % (0.0-1.0); HEMATOCRIT 38.7 % (37.0-47.0); MEAN CELL VOLUME 97.5 fl (81.0-99.0); MEAN CORPUSCULAR HGB 30.2 pg (27.0-31.0); MEAN PLATELET VOLUME 9.6 fl (9.6-12.3); MONO # 0.5 10*3/uL (0.1-1.0); MONO % 5.9 % (3.0-9.0); NEUT # 7.5 10*3/uL (2.3-7.9); NEUT % 84.1 % (47.0-73.0); PLATELET COUNT AUTOMATED 174 10*3/uL (130-400); RED BLOOD COUNT 3.97 10*6/uL (4.10-5.10); RED CELL DISTRI WIDTH 15.9 % (0-14.5); WHITE BLOOD COUNT 8.9 10*3/uL (4.8-10.8)
[2024-02-17 22:37] LABS: POTASSIUM 3.9 mmol/L (3.4-5.1)
[2024-02-17] MEDS ORDERED: AZITHROMYCIN 250 ML IV ONE (23:15)
[2024-02-17] MEDS ORDERED: Ceftriaxone Sodium 1 GM/10 ML SYR IV ONE (23:15)
[2024-02-18] MEDS ORDERED: Magnesium Hydroxide 30 ML UDC PO PRN (00:30)
[2024-02-18] MEDS ORDERED: ACETAMINOPHEN 325 MG TAB PO PRN (00:30)
[2024-02-18] MEDS ORDERED: Ondansetron Hydrochloride 4 MG/2 ML VIAL IV PRN (00:30)
[2024-02-18] MEDS ORDERED: DEXTROSE 10 % IN WATER 250 ML IV PRN (00:40)
[2024-02-18] MEDS ORDERED: BUMETANIDE 1 MG/4 ML VIAL IV SCH (00:45)
[2024-02-18] MEDS ORDERED: Albuterol Sulf/Ipratropium 3 ML VIAL NEB SCH (00:55)
[2024-02-18] MEDS ORDERED: methylPREDNISolone sod succ 40 MG VIAL IV SCH ×2 (00:55→08:00)
[2024-02-18] MEDS ORDERED: ALPRAZolam 0.25 MG TAB PO ONE (00:55)
[2024-02-18 01:27] VITALS: BP 122/39
[2024-02-18 04:12] LABS: BASO % 0.6 % (0.0-1.0); HEMATOCRIT 34.6 % (37.0-47.0); MEAN CELL VOLUME 98.6 fl (81.0-99.0); MEAN CORPUSCULAR HGB 29.6 pg (27.0-31.0); MEAN CORPUSCULAR HGB CONC 30.1 g/dl (33.0-37.0); MEAN PLATELET VOLUME 9.5 fl (9.6-12.3); MONO # 0.5 10*3/uL (0.1-1.0); MONO % 7.3 % (3.0-9.0); NEUT # 5.7 10*3/uL (2.3-7.9); NEUT % 80.5 % (47.0-73.0); PLATELET COUNT AUTOMATED 151 10*3/uL (130-400); RED BLOOD COUNT 3.51 10*6/uL (4.10-5.10); WHITE BLOOD COUNT 7.1 10*3/uL (4.8-10.8)
[2024-02-18 04:39] LABS: POTASSIUM 3.5 mmol/L (3.4-5.1); TOTAL PROTEIN 6.2 gm/dL (6.0-8.0)
[2024-02-18 05:10] VITALS: BP 121/54
[2024-02-18] MEDS ORDERED: INSULIN LISPRO 1 UNIT/0.01 ML SQ SCH (07:30)
[2024-02-18 08:06] LABS: BILIRUBIN Negative (Negative); BLOOD Negative (Negative); CLARITY Clear (Clear); COLOR Yellow (Yellow); GLUCOSE Negative (Negative); KETONE Negative (Negative); LEUKO ESTERASE Negative (Negative); NITRITE Negative (Negative); UROBILINOGEN 0.2 E.U./dl (0.0-1.0)
[2024-02-18 09:56] LABS: BACTERIA 3+; EPITHELIAL CELLS 16-20
[2024-02-18 09:58] VITALS: BP 145/67
[2024-02-18] MEDS ORDERED: Insulin Glargine, Recombinan 1 UNIT/0.01 ML SC SCH (10:00)
[2024-02-18] MEDS ORDERED: hydrALAZINE hydrochloride 10 MG TAB PO SCH ×2 (10:00→14:00)
[2024-02-18] MEDS ORDERED: ISOSORBIDE MONONITRATE 30 MG TAB PO SCH (10:00)
[2024-02-18] MEDS ORDERED: FERROUS SULFATE 325 MG TAB PO SCH (10:00)
[2024-02-18] MEDS ORDERED: LAMOTRIGINE 100 MG TAB PO SCH (10:00)
[2024-02-18] MEDS ORDERED: Cetirizine Hydrochloride 10 MG TAB PO SCH (10:00)
[2024-02-18] MEDS ORDERED: AZITHROMYCIN 250 ML IV SCH (10:00)
[2024-02-18] MEDS ORDERED: ASPIRIN, CHEWABLE 81 MG TAB PO SCH (10:00)
[2024-02-18] MEDS ORDERED: RIVAROXABAN 15 MG TAB PO SCH (10:00)
[2024-02-18] MEDS ORDERED: METOPROLOL SUCCINATE XR 50 MG TAB PO SCH (10:00)
[2024-02-18] MEDS ORDERED: Pantoprazole Sodium 40 MG TAB PO SCH (10:00)
[2024-02-18] MEDS ORDERED: Levothyroxine Sodium 50 MCG TAB PO SCH (10:00)
[2024-02-18] MEDS ORDERED: GUAIFENESIN 600 MG TAB ER PO SCH (10:00)
[2024-02-18 13:23] VITALS: BP 115/47
[2024-02-18 16:50] VITALS: BP 105/58
[2024-02-18 20:00] VITALS: BP 133/64
[2024-02-18] MEDS ORDERED: ALPRAZolam 0.25 MG TAB PO SCH (22:00)
[2024-02-18] MEDS ORDERED: ATORVASTATIN CALCIUM 40 MG TABLET PO SCH (22:40)
[2024-02-19] VITALS: BP 117/48
[2024-02-19] MEDS ORDERED: Ceftriaxone Sodium 1 GM in SYRINGE INFUSION 10 ML IV SCH
[2024-02-19 06:31] LABS: HEMATOCRIT 34.6 % (37.0-47.0); MEAN CELL VOLUME 97.2 fl (81.0-99.0); MEAN CORPUSCULAR HGB 30.1 pg (27.0-31.0); MEAN CORPUSCULAR HGB CONC 30.9 g/dl (33.0-37.0); MEAN PLATELET VOLUME 10.1 fl (9.6-12.3); PLATELET COUNT AUTOMATED 142 10*3/uL (130-400); RED BLOOD COUNT 3.56 10*6/uL (4.10-5.10); RED CELL DISTRI WIDTH 15.8 % (0-14.5); WHITE BLOOD COUNT 6.2 10*3/uL (4.8-10.8)
[2024-02-19 06:36] LABS: MANUAL DIFF REFLEX YES
[2024-02-19 07:21] LABS: POTASSIUM 4.3 mmol/L (3.4-5.1)
[2024-02-19 07:29] LABS: ATYPICAL LYMPHS 1 % (0-0); BURR CELLS FEW; OVALOCYTES FEW; PLATELET SUFFICIENCY NORMAL (NORMAL); POLYCHROMASIA SLIGHT; TOTAL CELLS COUNTED 100 #CELLS
[2024-02-19 08:00] VITALS: BP 122/64
[2024-02-19] MEDS ORDERED: BUMETANIDE 1 MG/4 ML VIAL IV ONE (09:20)
[2024-02-19] MEDS ORDERED: Insulin Glargine, Recombinan 1 UNIT/0.01 ML SC SCH (10:00)
[2024-02-19 12:00] VITALS: BP 122/67
[2024-02-19 13:15] VITALS: BP 121/59
[2024-02-19 16:00] VITALS: BP 137/73
[2024-02-19] MEDS ORDERED: BUMETANIDE 1 MG/4 ML VIAL IV SCH (18:00)
[2024-02-19 20:00] VITALS: BP 114/59
[2024-02-20] VITALS: BP 114/60
[2024-02-20 06:16] VITALS: BP 119/64
[2024-02-20 06:31] LABS: POTASSIUM 4.2 mmol/L (3.4-5.1)
[2024-02-20 06:32] LABS: HEMATOCRIT 34.6 % (37.0-47.0); MEAN CELL VOLUME 95.6 fl (81.0-99.0); MEAN CORPUSCULAR HGB 29.8 pg (27.0-31.0); MEAN CORPUSCULAR HGB CONC 31.2 g/dl (33.0-37.0); MEAN PLATELET VOLUME 9.9 fl (9.6-12.3); PLATELET COUNT AUTOMATED 174 10*3/uL (130-400); RED BLOOD COUNT 3.62 10*6/uL (4.10-5.10); RED CELL DISTRI WIDTH 15.6 % (0-14.5); WHITE BLOOD COUNT 8.4 10*3/uL (4.8-10.8)
[2024-02-20 06:50] LABS: MANUAL DIFF REFLEX YES
[2024-02-20 07:33] LABS: PLATELET SUFFICIENCY NORMAL (NORMAL); TOTAL CELLS COUNTED 100 #CELLS
[2024-02-20 08:00] VITALS: BP 122/66
[2024-02-20 12:00] VITALS: BP 131/71
[2024-02-20 16:00] VITALS: BP 116/61
[2024-02-20 20:00] VITALS: BP 132/83
[2024-02-20] MEDS ORDERED: TRAMADOL HCL50 MG PO (22:18)
[2024-02-21] VITALS: BP 112/59
[2024-02-21 06:00] LABS: POTASSIUM 4.3 mmol/L (3.4-5.1)
[2024-02-21 08:00] VITALS: BP 128/65
[2024-02-21 12:00] VITALS: BP 107/56
[2024-02-21 16:00] VITALS: BP 133/59
[2024-02-21] MEDS ORDERED: TORSEMIDE 20 MG TAB PO SCH (18:00)
[2024-02-21] MEDS ORDERED: BUMETANIDE 1 MG TAB PO SCH (18:00)
[2024-02-21 20:00] VITALS: BP 133/73
[2024-02-22] VITALS: BP 131/75
[2024-02-22 05:50] VITALS: BP 136/82
[2024-02-22 06:49] LABS: BASO % 0.1 % (0.0-1.0); HEMATOCRIT 35.7 % (37.0-47.0); MEAN CELL VOLUME 97.3 fl (81.0-99.0); MEAN CORPUSCULAR HGB 29.7 pg (27.0-31.0); MEAN CORPUSCULAR HGB CONC 30.5 g/dl (33.0-37.0); MEAN PLATELET VOLUME 10.1 fl (9.6-12.3); MONO # 0.3 10*3/uL (0.1-1.0); MONO % 4.4 % (3.0-9.0); NEUT # 6.4 10*3/uL (2.3-7.9); NEUT % 87.1 % (47.0-73.0); PLATELET COUNT AUTOMATED 177 10*3/uL (130-400); RED BLOOD COUNT 3.67 10*6/uL (4.10-5.10); RED CELL DISTRI WIDTH 15.7 % (0-14.5); WHITE BLOOD COUNT 7.3 10*3/uL (4.8-10.8)
[2024-02-22 06:50] LABS: POTASSIUM 4.1 mmol/L (3.4-5.1)
[2024-02-22 08:00] VITALS: BP 134/71
[2024-02-22] MEDS ORDERED: TORSEMIDE20 MG PO (11:33)
[2024-02-22] MEDS ORDERED: PREDNISONE10 MG PO (11:33)
[2024-02-22] MEDS ORDERED: ZITHROMAX250 MG PO (11:33)
[2024-02-22 12:00] VITALS: BP 117/64
[2024-02-22 15:21] VITALS: BP 151/62
[2024-02-22] MEDS ORDERED: TEMAZEPAM 15 MG CAP PO PRN (22:00)
== END 2024-02-22 21:30 | disposition home or self-care (01) | DRG 291 ==
LOC: ED 21:10 → 4E 23:22 → EDHOLD 23:22 → 4E 02-18 15:58
PROVIDERS: Emergency Medicine; Student in an Organized Health Care Education/Training Program; ADMIT Internal Medicine; ATTEND Internal Medicine
DX: I13.0 Hypertensive heart and chronic kidney disease with heart failure and stage 1 through stage 4 chronic kidney disease, or unspecified chronic kidney disease (principal); I50.43 Acute on chronic combined systolic (congestive) and diastolic (congestive) heart failure; J96.01 Acute respiratory failure with hypoxia; N17.0 Acute kidney failure with tubular necrosis; J44.1 Chronic obstructive pulmonary disease with (acute) exacerbation; I48.20 Chronic atrial fibrillation, unspecified; N18.4 Chronic kidney disease, stage 4 (severe); I48.21 Permanent atrial fibrillation; J98.4 Other disorders of lung; I25.5 Ischemic cardiomyopathy; J40 Bronchitis, not specified as acute or chronic; I27.20 Pulmonary hypertension, unspecified; K21.9 Gastro-esophageal reflux disease without esophagitis; D64.9 Anemia, unspecified; E78.2 Mixed hyperlipidemia; E11.22 Type 2 diabetes mellitus with diabetic chronic kidney disease; I07.1 Rheumatic tricuspid insufficiency; I25.10 Atherosclerotic heart disease of native coronary artery without angina pectoris; F33.42 Major depressive disorder, recurrent, in full remission; Z95.5 Presence of coronary angioplasty implant and graft; Z79.4 Long term (current) use of insulin; I25.2 Old myocardial infarction; Z90.710 Acquired absence of both cervix and uterus; Z87.891 Personal history of nicotine dependence; Z79.899 Other long term (current) drug therapy; Z79.82 Long term (current) use of aspirin; Z95.1 Presence of aortocoronary bypass graft

== ENCOUNTER → 2024-03-19 | Outpatient (CLI) | payer OTHER ==
[~2024-03-19] MED LIST changes: +PROTONIX40 MG PO; +TORSEMIDE20 MG PO
[2024-03-19 13:14] LABS: BASO % 0.6 % (0.0-1.0); EOS % 0.2 % (1.0-4.0); HEMATOCRIT 36.8 % (37.0-47.0); MEAN CELL VOLUME 96.3 fl (81.0-99.0); MEAN CORPUSCULAR HGB 28.8 pg (27.0-31.0); MEAN CORPUSCULAR HGB CONC 29.9 g/dl (33.0-37.0); MONO # 0.4 10*3/uL (0.1-1.0); MONO % 8.6 % (3.0-9.0); NEUT # 3.8 10*3/uL (2.3-7.9); NEUT % 74.4 % (47.0-73.0); PLATELET COUNT AUTOMATED 182 10*3/uL (130-400); RED BLOOD COUNT 3.82 10*6/uL (4.10-5.10); RED CELL DISTRI WIDTH 16.4 % (0-14.5); WHITE BLOOD COUNT 5.1 10*3/uL (4.8-10.8)
[2024-03-19 13:21] LABS: BILIRUBIN Negative (Negative); BLOOD Negative (Negative); CLARITY Cloudy (Clear); COLOR Yellow (Yellow); GLUCOSE Negative (Negative); KETONE Negative (Negative); LEUKO ESTERASE Negative (Negative); NITRITE Negative (Negative); SPECIFIC GRAVITY <= 1.005 (1.001-1.030); UROBILINOGEN 0.2 E.U./dl (0.0-1.0)
[2024-03-19 13:50] LABS: VITAMIN D, 25-HYDROXY 30.5 ng/mL (30-100)
[2024-03-19 13:52] LABS: BACTERIA 4+; EPITHELIAL CELLS 21-30
== END | disposition home or self-care (01) ==
LOC: LAB 12:28
PROVIDERS: ATTEND Internal Medicine Nephrology
DX: N25.81 Secondary hyperparathyroidism of renal origin (principal); N18.4 Chronic kidney disease, stage 4 (severe); D63.1 Anemia in chronic kidney disease

== ENCOUNTER → 2024-03-20 | Outpatient (CLI) | payer OTHER ==
[2024-03-20 14:45] LABS: POTASSIUM 4.4 mmol/L (3.4-5.1)
== END | disposition home or self-care (01) ==
LOC: LAB 12:57
PROVIDERS: ATTEND Nurse Practitioner Family
DX: N18.4 Chronic kidney disease, stage 4 (severe) (principal)

== ENCOUNTER → 2024-04-30 | Outpatient (CLI) | payer MEDICARE | END | disposition home or self-care (01) | LOC: CT 02:06 | PROVIDERS: ATTEND Physician Assistant | DX: K43.9 Ventral hernia without obstruction or gangrene (principal); I51.7 Cardiomegaly; J90 Pleural effusion, not elsewhere classified; J98.4 Other disorders of lung; I25.10 Atherosclerotic heart disease of native coronary artery without angina pectoris; R60.0 Localized edema ==

== ENCOUNTER → 2024-05-05 | Outpatient (CLI) | payer MEDICARE ==
[2024-05-05 12:58] LABS: POTASSIUM 4.2 mmol/L (3.4-5.1)
== END | disposition home or self-care (01) ==
LOC: LAB 11:52
PROVIDERS: ATTEND Nurse Practitioner Family
DX: N18.4 Chronic kidney disease, stage 4 (severe) (principal)

== ENCOUNTER → 2024-05-16 | Outpatient (CLI) | payer OTHER | END | disposition home or self-care (01) | LOC: MRI 04-07 10:00 → US 05-14 09:00 → MRI 05-14 10:00 → US 01:17 | PROVIDERS: ATTEND Orthopaedic Surgery | DX: K76.0 Fatty (change of) liver, not elsewhere classified (principal); K82.4 Cholesterolosis of gallbladder; R10.9 Unspecified abdominal pain; I13.0 Hypertensive heart and chronic kidney disease with heart failure and stage 1 through stage 4 chronic kidney disease, or unspecified chronic kidney disease; E11.22 Type 2 diabetes mellitus with diabetic chronic kidney disease; N18.9 Chronic kidney disease, unspecified; I50.9 Heart failure, unspecified; M23.91 Unspecified internal derangement of right knee ==

== ENCOUNTER → 2024-06-02 | Outpatient (CLI) | payer OTHER ==
[2024-06-02 12:01] LABS: BASO # 0.1 10*3/uL (0.0-0.1); BASO % 0.8 % (0.0-1.0); BILIRUBIN Negative (Negative); BLOOD Negative (Negative); CLARITY Clear (Clear); COLOR Yellow (Yellow); EOS % 0.1 % (1.0-4.0); GLUCOSE Negative (Negative); HEMATOCRIT 37.7 % (37.0-47.0); KETONE Negative (Negative); LEUKO ESTERASE Negative (Negative); MEAN CORPUSCULAR HGB 25.6 pg (27.0-31.0); MEAN CORPUSCULAR HGB CONC 30.8 g/dl (33.0-37.0); MEAN PLATELET VOLUME 10.7 fl (9.6-12.3); MONO # 0.6 10*3/uL (0.1-1.0); MONO % 8.4 % (3.0-9.0); NEUT # 5.6 10*3/uL (2.3-7.9); NEUT % 78.2 % (47.0-73.0); NITRITE Negative (Negative); PH 5.5 (4.5-8.0); PLATELET COUNT AUTOMATED 143 10*3/uL (130-400); RED BLOOD COUNT 4.54 10*6/uL (4.10-5.10); RED CELL DISTRI WIDTH 17.8 % (0-14.5); UROBILINOGEN 0.2 E.U./dl (0.0-1.0); WHITE BLOOD COUNT 7.1 10*3/uL (4.8-10.8)
[2024-06-02 12:44] LABS: POTASSIUM 3.8 mmol/L (3.4-5.1)
[2024-06-02 12:47] LABS: VITAMIN D, 25-HYDROXY 37.7 ng/mL (30-100)
[2024-06-02 13:02] LABS: BACTERIA 1+; RBC 0-2 rbc/hpf (0-2)
== END | disposition home or self-care (01) ==
LOC: LAB 11:30
PROVIDERS: ATTEND Nurse Practitioner Family
DX: I50.22 Chronic systolic (congestive) heart failure (principal); N18.4 Chronic kidney disease, stage 4 (severe); N25.81 Secondary hyperparathyroidism of renal origin; D63.1 Anemia in chronic kidney disease